=== PATIENT | female | born 1945 | race Caucasian/White ===

== ENCOUNTER → 2018-01-21 01:28 | Outpatient (CLI) | payer MEDICARE, SELFPAY ==
--- NOTE | 2018-01-21 15:50 | DI.REPORT_ITS ---
SYMPTOMS/DIAGNOSIS: S/P LUMBAR DECOMPRESSION WITH NEW SYMPTOMS, BACK AND RIGHT LEG PAIN, NUMBNESS TO KNEE MRI OF THE LUMBAR SPINE: Routine noncontrast examination was performed. Comparison MRI is 03/22/17. Since the prior examination, the patient has undergone posterior spinal fusion with posterior rods and pedicle screws from L4 through S1. The orthopedic hardware does cause artifact at these levels. The conus medullaris has a normal appearance and location. At L5-S1, there is grade 1 spondylolisthesis. There is disc desiccation. No significant central spinal canal or neural foraminal stenosis is seen. At L4-L5, there is disc desiccation. There does not appear to be any significant central spinal canal stenosis. The neural foraminal evaluation is compromised. There does appear to be at least mild bilateral neural foraminal narrowing. At L3-L4, there does appear to be a diffuse disc bulge. There are degenerative changes of the facets. The findings do appear to cause moderate central spinal canal stenosis. Neural foraminal evaluation is severely limited. There does appear to be moderate to severe right neural foraminal stenosis and mild left neural foraminal stenosis. At L2-L3, there is disc desiccation and a mild diffuse disc bulge. No focal disc herniation or central spinal canal stenosis is seen. There is mild to moderate bilateral neural foraminal stenosis present. At L1-L2, there is disc desiccation, endplate degenerative changes and osteophytes. No focal disc herniation or significant central spinal canal stenosis is seen. There is moderate narrowing of the left neural foramen. No significant right neural foraminal stenosis is seen. At T12-L1, there is no focal disc herniation, central spinal canal or neural foraminal stenosis. IMPRESSION: 1. Since the prior examination from March 2017, the patient has undergone a lumbar decompression with posterior tunde and screws extending from L4 through S1. This does compromise evaluation of the lower lumbar spine. 2. Degenerative changes throughout the lumbar spine causing multilevel central spinal canal and neural foraminal stenosis as described above. 3. Grade 1 spondylolisthesis of L5 on S1.
== END ==
PROVIDERS: PCP Nurse Practitioner Family; Visit Provider Nurse Practitioner
DX: M54.5 Low back pain (principal); M79.661 Pain in right lower leg; R20.0 Anesthesia of skin; M51.37 Other intervertebral disc degeneration, lumbosacral region; M43.17 Spondylolisthesis, lumbosacral region; Z98.890 Other specified postprocedural states
CPT/HCPCS: 72148

== ENCOUNTER 2018-03-25 13:37 | Outpatient (REF) | payer MEDICARE, SELFPAY ==
[2018-03-25 15:16] LABS: COMMENT (LAB VIEW ONLY) 25.52 mg/dL; Microalb ug/mg Crea 21.2 ug/mg Cr
[2018-03-25 18:31] LABS: ALT 40 U/L (12-78); AST 25 U/L (15-37); Albumin 4.3 g/dL (3.4-5.0); Alkaline Phosphatase 118 U/L (46-116); Anion Gap 6.2 mmol/L (3-11); BUN 14 mg/dL (7-18); Bilirubin, Total 0.4 mg/dL (0.2-1.0); CO2 30.8 mmol/L (21.0-32.0); CREATININE 1.05 mg/dL (0.55-1.02); Calcium 8.9 mg/dL (8.5-10.1); Chloride 95 mmol/L (98-107); Cholesterol 131 mg/dL (50-200); Estimated GFR 51.66 (mL/min/1.73m2); Glucose 95 mg/dL (70-100); HDL Cholesterol 54 mg/dL (40-60); LDL CHOLESTEROL 66 mg/dL (<100); Potassium 4.9 mmol/L (3.5-5.1); Sodium 132 mmol/L (136-145); Total Protein 7.6 g/dL (6.4-8.2); Triglyceride 104 mg/dL (30-150)
== END 2018-03-25 13:57 ==
LOC: NCHCN 13:37
PROVIDERS: PCP Nurse Practitioner Family; Visit Provider Nurse Practitioner Family
DX: I10 Essential (primary) hypertension (principal); E78.5 Hyperlipidemia, unspecified; R79.89 Other specified abnormal findings of blood chemistry
CPT/HCPCS: 80053; 80061; 83721; 82043; 82570; 83036

== ENCOUNTER 2018-06-26 14:06 | Outpatient (CLI) | payer MEDICARE, SELFPAY ==
--- NOTE | 2018-06-26 06:00 | DI.RAD_ITS ---
SYMPTOM/DIAGNOSIS: LUMBAR RADICULOPATHY, TRANSFORAMINAL EPIDURAL STEROID INJECTION C-ARM: Fluoroscopy Time: 34.1 seconds Fluoroscopy was provided for guidance with lumbar spine pain clinic injection. Please see procedure note for details.
[2018-06-26 15:01] VITALS: BP 125/74; PULSE 70; RESP 18; TEMP 37.7; O2SAT 96
[2018-06-26] MEDS: Omnipaque 240 MG/ML 50 ML BTL IJ (15:49)
[2018-06-26] MEDS: methylPREDNISolone ACETATE 40 MG/ML VIAL IJ (15:49)
[2018-06-26 15:50] VITALS: BP 134/63; PULSE 65; RESP 16; O2SAT 99
[2018-06-26] MEDS: Bupivacaine 0.5% Pres-Free 30 ML VIAL IJ (15:50)
--- NOTE | 2018-06-26 15:54 | PDOC.PAIN_ITS ---
Pain Clinic Procedure Note Current Active Problems Problem Status Onset Adjacent segment disease with spinal stenosis Acute LUMBAR / SACRAL TRANSFORAMINAL INJECTION CIARA CHRISTIANSON has been referred to the [facility] for a transforaminal nerve root block and steroid injection. COMMENTS: The patient has Right thigh and hip pain. Right L3 foraminal stenosis. Patient was interviewed and the medical record reviewed. There were no medical, pharmacologic, radiographic or other structural contraindications to attempting fluoroscopically guided transforaminal nerve root block and epidural steroid injection. Risks and expected side effects as well as potential benefit of the procedure were reviewed and voiced concerns addressed. The printed consent form was signed and witnessed. Standard time-out procedure was performed. Patient was placed in the prone position on the fluoroscopy table and automated blood pressure cuff and pulse oximeter applied. Fluoroscopy was utilized to identify the {right} neural foramen between L3and 4 . A skin grace was made for the needle insertion site. A Chlorhexadine prep was carried out, and sterile drapes were applied. Local anesthesia was achieved in the skin and subcutaneous tissues. A 22 gauge curved tip spinal needle was then inserted, advanced with fluoroscopic guidance into the neural foramen, confirmed on the lateral view. After negative aspiration, 2 ml of Omnipaque 240 was injected confirming position in A/P and lateral views. This showed a good spread of dye transforaminally into the epidural space. There was no vascular update with contrast injection under continuous fluoroscopy and digital substraction. 60 mg of Depo-Medrol was injected, followed by 0.5 ml of 1% Xylocaine flush for the nerve root block, as well. There was no unusual discomfort expressed.The needle was withdrawn. The patient tolerated the procedure well. A Band-Aid was applied. Vital signs were stable throughout the procedure and were as recorded in nursing records. If given, dosages of intravenous drugs for anxiolysis and analgesia were documented in nursing records. Follow up plans and appointments were discussed. Post procedure instruction was given as documented in nursing records and patient was discharged in the care of an identified regional truck driver. COMMENTS: Patient will f/u prn. CC: Elicai Pacheco
== END 2018-06-26 14:26 ==
PROVIDERS: PCP Nurse Practitioner Family; Visit Provider Anesthesiology Pain Medicine
DX: M51.16 Intervertebral disc disorders with radiculopathy, lumbar region (principal)
CPT/HCPCS: 64483; 72100; J1030; Q9967

== ENCOUNTER 2018-07-15 13:07 | Outpatient (REF) | payer MEDICARE, SELFPAY ==
[2018-07-15 19:46] LABS: ALT 32 U/L (12-78); AST 21 U/L (15-37); Alkaline Phosphatase 86 U/L (46-116); Anion Gap 7.2 mmol/L (3-11); BUN 28 mg/dL (7-18); Bilirubin, Total 0.4 mg/dL (0.2-1.0); CO2 31.8 mmol/L (21.0-32.0); CREATININE 1.48 mg/dL (0.55-1.02); Chloride 92 mmol/L (98-107); Estimated GFR 34.77 (mL/min/1.73m2); Glucose 78 mg/dL (70-100); Potassium 4.7 mmol/L (3.5-5.1); Sodium 131 mmol/L (136-145); Total Protein 7.3 g/dL (6.4-8.2)
== END 2018-07-15 13:27 ==
LOC: NCHCN 13:07
PROVIDERS: PCP Nurse Practitioner Family; Visit Provider Nurse Practitioner Family
DX: E78.5 Hyperlipidemia, unspecified (principal); F32.9 Major depressive disorder, single episode, unspecified; Z86.39 Personal history of other endocrine, nutritional and metabolic disease
CPT/HCPCS: 80053

== ENCOUNTER 2018-10-14 11:28 | Outpatient (REF) | payer MEDICARE, SELFPAY ==
[2018-10-14 19:56] LABS: Absolute Basophil Count 0.01 k/cumm (0.0-0.2); Absolute Eosinophil Count 0.09 k/cumm (0.0-0.7); Absolute Lymphocyte Count 0.99 k/cumm (1.2-3.4); Absolute Monocyte Count 0.65 k/cumm (0.11-0.7); Basophils % 0.2; Eosinophils % 1.9; HCT 32.6 % (36.0-46.0); HGB 11.3 g/dL (12.0-15.5); Lymphocytes % 20.9; Mean Corp. HGB Concentration 34.7 g/dL (32.0-36.0); Mean Corpuscular Hemoglobin 31.8 pg (27.0-33.0); Mean Corpuscular Volume 91.8 fL (80-95); Mean Platelet Volume 9.2 fL (8.0-11.0); Monocytes % 13.7; Neutrophils % 63.3; Platelet Count 224 x1000/uL (130-400); RBC 3.55 m/cumm (4.00-5.20); RBC Distribution Width 11.6 % (11.7-14.6); White Blood Cell Count 4.74 k/cumm (4.4-10.8)
[2018-10-14 20:32] LABS: ALT 33 U/L (12-78); AST 25 U/L (15-37); Albumin 4.1 g/dL (3.4-5.0); Alkaline Phosphatase 91 U/L (46-116); Anion Gap 9.5 mmol/L (3-11); BUN 20 mg/dL (7-18); Bilirubin, Total 0.8 mg/dL (0.2-1.0); CO2 28.5 mmol/L (21.0-32.0); CREATININE 1.33 mg/dL (0.55-1.02); Calcium 9.3 mg/dL (8.5-10.1); Chloride 88 mmol/L (98-107); Cholesterol 133 mg/dL (50-200); Estimated GFR 39.33 (mL/min/1.73m2); Glucose 98 mg/dL (70-100); HDL Cholesterol 47 mg/dL (40-60); LDL CHOLESTEROL 62 mg/dL (<100); Potassium 4.3 mmol/L (3.5-5.1); Sodium 126 mmol/L (136-145); TSH (W/Ref FT4) 2.54 uIU/mL (0.358-3.74); Total Protein 7.4 g/dL (6.4-8.2); Triglyceride 157 mg/dL (30-150)
== END 2018-10-14 11:48 ==
LOC: NCHCN 11:28
PROVIDERS: PCP Nurse Practitioner Family; Visit Provider Nurse Practitioner Family
DX: I10 Essential (primary) hypertension (principal); R06.09 Other forms of dyspnea; Z86.39 Personal history of other endocrine, nutritional and metabolic disease
CPT/HCPCS: 80053; 80061; 83721; 84443; 85025

== ENCOUNTER 2018-10-18 01:41 | Outpatient (CLI) | payer MEDICARE, SELFPAY ==
--- NOTE | 2018-10-18 10:00 | DI.US_ITS ---
SYMPTOM/DIAGNOSIS: STAGE III CHRONIC KIDNEY DISEASE, N18.3 RENAL ULTRASOUND: The kidneys are normal in size and shape. There is no evidence of a renal mass or fluid collection involving the pararenal space. The corticomedullary definition appears intact. Ther is no evidence of hydronephrosis. The examination of the bladder fails to show any intraluminal or wall abnormality of the bladder. Pre and post void urinary bladder volume measurements are 105 cc's and 14 cc's respectively. Ureteral jets were visualized bilaterally. CONCLUSION: Negative renal ultrasound.
== END 2018-10-18 02:01 ==
PROVIDERS: PCP Nurse Practitioner Family; Visit Provider Nurse Practitioner Family
DX: N18.3 Chronic kidney disease, stage 3 (moderate) (principal)
CPT/HCPCS: 76770

== ENCOUNTER 2018-10-21 01:10 | Outpatient (CLI) | payer MEDICARE, SELFPAY ==
--- NOTE | 2018-10-21 09:40 | DI.MAMMO_ITS ---
SYMPTOM/DIAGNOSIS: SCREENING, FAMILY H/O BREAST CA, Z80.3 MAMMOGRAMS: Mammograms were interpreted according to the usual protocol including computer analysis with CAD system, tomosynthesis and C view imaging. The breasts are of moderate density with fairly symmetrical distribution of fibroglandular tissue. No dominant mass or clumped microcalcification is identified in either breast. The current examination is compared with previous examinations including 03/2016 and there has been no gross interval change in appearance in comparison with the previous studies. CONCLUSION: No specific evidence of malignancy at this time. Routine screening examinations are suggested at yearly intervals due to the family history of breast carcinoma. Category 1, breast density, Category B. MQSA ASSESSMENT OF FINDINGS: Negative. Category 1. Patient will receive a letter notifying them of these results. BI-RADS category B. There are scattered areas of fibroglandular density.
== END 2018-10-21 01:30 ==
PROVIDERS: PCP Nurse Practitioner Family; Visit Provider Nurse Practitioner Family
DX: Z12.31 Encounter for screening mammogram for malignant neoplasm of breast (principal); Z80.3 Family history of malignant neoplasm of breast
CPT/HCPCS: 77063; 77067

== ENCOUNTER 2018-10-28 01:30 | Outpatient (CLI) | payer MEDICARE, SELFPAY ==
--- NOTE | 2018-10-28 | PFT_ITS ---
PULMONARY FUNCTION TEST REPORT Patient - Negar Godinez 49 DATE OF SERVICE October 28, 2018 REQUESTING PROVIDER Byron Gibson NP INTERPRETATION OF STUDY Spirometry shows no evidence of obstructive airways disease. There is some, but not significant bronchodilator response. LUNG VOLUMES - Lung volumes shows no evidence of restriction. DIFFUSION CAPACITY- Normal. AIRWAY RESISTANCE - Normal. IMPRESSION Overall normal pulmonary function study. There is some improvement with bronchodilator administration, however, this may be related to a better patient effort and overall the amount of response is not significant. Clinical correlation therefore is recommended. If underlying diagnosis of asthma is suspected, proceeding with Methacholine challenge testing may prove to be useful. Elisa Arteaga M.D. [employer]LEJANDRO[employer] 10/30/2018
[2018-10-28] MEDS: Inhaler, Assist Device 1 EACH MC (13:39)
[2018-10-28] MEDS: Albuterol HFA 18 GM 200 PUFF INH IH (13:40)
[2018-10-28 15:26] LABS: Anion Gap 8.4 mmol/L (3-11); BUN 15 mg/dL (7-18); CO2 28.6 mmol/L (21.0-32.0); CREATININE 0.96 mg/dL (0.55-1.02); Calcium 9.2 mg/dL (8.5-10.1); Chloride 97 mmol/L (98-107); Estimated GFR 57.29 (mL/min/1.73m2); Glucose 88 mg/dL (70-100); Potassium 4.3 mmol/L (3.5-5.1); Sodium 134 mmol/L (136-145)
== END 2018-10-28 01:50 ==
PROVIDERS: PCP Nurse Practitioner Family; Visit Provider Nurse Practitioner Family
DX: N18.3 Chronic kidney disease, stage 3 (moderate) (principal); R06.09 Other forms of dyspnea; Z77.22 Contact with and (suspected) exposure to environmental tobacco smoke (acute) (chronic)
CPT/HCPCS: 36415; 80048; 94060; 94150; 94726; 94729

== ENCOUNTER 2018-12-10 10:47 | Outpatient (CLI) | payer MEDICARE, SELFPAY ==
[2018-12-10 12:10] LABS: Anion Gap 9.9 mmol/L (3-11); BUN 11 mg/dL (7-18); CO2 28.1 mmol/L (21.0-32.0); CREATININE 1.03 mg/dL (0.55-1.02); Calcium 9.5 mg/dL (8.5-10.1); Chloride 102 mmol/L (98-107); Estimated GFR 52.82 (mL/min/1.73m2); Glucose 90 mg/dL (70-100); Potassium 4.9 mmol/L (3.5-5.1); Sodium 140 mmol/L (136-145)
== END 2018-12-10 11:07 ==
PROVIDERS: PCP Nurse Practitioner Family; Visit Provider Nurse Practitioner Family
DX: N18.3 Chronic kidney disease, stage 3 (moderate) (principal); Z86.39 Personal history of other endocrine, nutritional and metabolic disease
CPT/HCPCS: 36415; 80048

== ENCOUNTER 2019-01-16 13:39 | Outpatient (REF) | payer MEDICARE, SELFPAY ==
[2019-01-16 18:37] LABS: Anion Gap 9.4 mmol/L (3-11); BUN 11 mg/dL (7-18); CO2 27.6 mmol/L (21.0-32.0); CREATININE 0.89 mg/dL (0.55-1.02); Calcium 9.2 mg/dL (8.5-10.1); Chloride 95 mmol/L (98-107); Glucose 80 mg/dL (70-100); Potassium 4.1 mmol/L (3.5-5.1); Sodium 132 mmol/L (136-145)
== END 2019-01-16 13:59 ==
LOC: NCHCN 13:39
PROVIDERS: PCP Nurse Practitioner Family; Visit Provider Nurse Practitioner Family
DX: N18.3 Chronic kidney disease, stage 3 (moderate) (principal)
CPT/HCPCS: 80048

== ENCOUNTER 2019-03-13 15:27 | Outpatient (REF) | payer MEDICARE, SELFPAY ==
[2019-03-13 18:44] LABS: HCT 34.6 % (36.0-46.0); HGB 11.5 g/dL (12.0-15.5); Mean Corp. HGB Concentration 33.2 g/dL (32.0-36.0); Mean Corpuscular Hemoglobin 31.3 pg (27.0-33.0); Mean Platelet Volume 9.1 fL (8.0-11.0); Platelet Count 391 x1000/uL (130-400); RBC 3.68 m/cumm (4.00-5.20); RBC Distribution Width 13.6 % (11.7-14.6)
[2019-03-13 18:59] LABS: ALT 27 U/L (14-59); AST 22 U/L (15-37); Alkaline Phosphatase 132 U/L (46-116); Anion Gap 10.7 mmol/L (3-11); BUN 15 mg/dL (7-18); Bilirubin, Total 0.4 mg/dL (0.2-1.0); CO2 23.3 mmol/L (21.0-32.0); CREATININE 1.13 mg/dL (0.55-1.02); Calcium 9.2 mg/dL (8.5-10.1); Chloride 102 mmol/L (98-107); Estimated GFR 47.33 (mL/min/1.73m2); Glucose 108 mg/dL (70-100); Potassium 4.3 mmol/L (3.5-5.1); Sodium 136 mmol/L (136-145); Total Protein 7.5 g/dL (6.4-8.2)
== END 2019-03-13 15:47 ==
LOC: NCHCN 15:27
PROVIDERS: PCP Nurse Practitioner Family; Visit Provider Nurse Practitioner Family
DX: N18.3 Chronic kidney disease, stage 3 (moderate) (principal); L29.8 Other pruritus
CPT/HCPCS: 80053; 85027

== ENCOUNTER 2019-04-17 11:49 | Outpatient (REF) | payer MEDICARE, SELFPAY ==
[2019-04-17 19:00] LABS: Anion Gap 8.4 mmol/L (3-11); BUN 15 mg/dL (7-18); CO2 27.6 mmol/L (21.0-32.0); CREATININE 1.08 mg/dL (0.55-1.02); Calcium 8.8 mg/dL (8.5-10.1); Chloride 104 mmol/L (98-107); Estimated GFR 49.87 (mL/min/1.73m2); Glucose 81 mg/dL (70-100); Potassium 4.3 mmol/L (3.5-5.1); Sodium 140 mmol/L (136-145)
== END 2019-04-17 12:09 ==
LOC: NCHCN 11:49
PROVIDERS: PCP Nurse Practitioner Family; Visit Provider Nurse Practitioner Family
DX: N18.3 Chronic kidney disease, stage 3 (moderate) (principal)
CPT/HCPCS: 80048

== ENCOUNTER 2019-06-20 11:46 | Outpatient (REF) | payer MEDICARE, SELFPAY ==
[2019-06-20 19:30] LABS: Anion Gap 10.2 mmol/L (3-11); BUN 14 mg/dL (7-18); CO2 26.8 mmol/L (21.0-32.0); CREATININE 1.04 mg/dL (0.55-1.02); Calcium 9.3 mg/dL (8.5-10.1); Chloride 103 mmol/L (98-107); Estimated GFR 52.09 (mL/min/1.73m2); Glucose 81 mg/dL (74-106); Potassium 4.5 mmol/L (3.5-5.1); Sodium 140 mmol/L (136-145)
[2019-06-20 19:37] LABS: COMMENT (LAB VIEW ONLY) 9.85 mg/dL; PROTEIN < 6.0 mg/dL
[2019-06-20 19:41] LABS: COMMENT (LAB VIEW ONLY) < 13.00 mg/dL
== END 2019-06-20 12:06 ==
LOC: NCHCN 11:46
PROVIDERS: PCP Nurse Practitioner Family; Visit Provider Nurse Practitioner Family
DX: I10 Essential (primary) hypertension (principal); N18.3 Chronic kidney disease, stage 3 (moderate); R73.03 Prediabetes
CPT/HCPCS: 80048; 82043; 82565; 82570; 84156

== ENCOUNTER 2019-12-02 11:02 | Outpatient (CLI) | payer MEDICARE, SELFPAY ==
[2019-12-02 11:24] VITALS: BP 142/80; PULSE 70; RESP 17; TEMP 37.3; O2SAT 98
--- NOTE | 2019-12-02 11:35 | PDOC.PAIN_ITS ---
Pain Clinic Procedure Note Procedure Note Procedure Note: INTRA-ARTICULAR SI JOINT INJECTION CIARA CHRISTIANSON has been referred to the [facility] for intra- articular SI joint injection. pre-operative diagnosis: disorder of sacrum post-operative diagnosis: same as above COMMENTS: patient has multiple lumbar surgeries including instrumented fusion. She has left more than right sacroiliac mediated pain. however, she is having symptoms on bilateral side today. She is here for diagnostic and therapeutic left SI joint injection. Patient was interviewed and the medical record reviewed. There were no medical, pharmacologic, radiographic or other structural contraindications to attempting fluoroscopically guided intra-articular SI joint injection. Risks and expected side effects as well as potential benefit of the procedure were reviewed and voiced concerns addressed. The printed consent form was signed and witnessed. Standard time-out procedure was performed. Patient was placed in the prone position on the fluoroscopy table and automated blood pressure cuff and pulse oximeter applied. The skin entry point for approaching left SI joints was identified under the most advantageous fluoroscopic view and marked. Following thorough Chlorhexadine preparation of the skin and draping and 1% lidocaine infiltration of the skin entry point and subcutaneous tissues, a 22 gauge spinal needle was placed under fluoroscopic guidance into left SI joints was identified under the most advantageous fluoroscopic view and marked. Following thorough Chlorhexadine preparation of the skin and draping and 1% lidocaine infiltration of the skin entry point and subcutaneous tissues, a 22 gauge spinal needle was placed under fluoroscopic guidance into left SI joint. Intra-articular placement was confirmed by a clear arthrogram resulting from the injection of 0.25ml Omnipaque 240, 1ml 0.5% Bupivocaine, and 40mg Depomedrol (80mg/ml) were injected intra-articularily with an initial reproduction of a significant component of the usual pain. The same thing was repeated on the right SI joint as above. Bilateral SI joint injection was performed with total of 80mg/ml (40mg/ml per joint) mixed with 2cc of 0.5% Bupivocaine (1cc per joint). Total of ~1cc of Omnipaque 240 used. Vital signs were stable throughout the procedure and were as recorded in the docflowsheet by the nursing staff. Follow up plans and appointments were discussed with the patient. Post procedure instruction was given as documented in nursing documentation and having met discharge criteria, and was discharged from the [facility]. COMMENTS: discussed with patient that today's injection is unlikely to help improve the numbness of her big toe, residual numbness since her lumbar spine surgery with Dr Lou. I personally performed the entire procedure. Brinda Sheldon MD Pain Management CC: Byron Gibson
[2019-12-02 11:59] VITALS: BP 142/74; PULSE 71; RESP 19; O2SAT 100
--- NOTE | 2019-12-02 12:00 | DI.RAD_ITS ---
EXAM: XR PAIN CLINIC SACRIOILIAC 2V CLINICAL HISTORY: Sacroiliac Joint Dysfunction. TECHNIQUE: Fluoroscopy was provided for the referring physician for guidance with performing SI join t injection procedure. COMPARISON: No exams were available for comparison FINDINGS: Please see procedure note for details. Fluoro time: 26.7 sec, 8.42 mGy RADIATION DOSE DELIVERED:
[2019-12-02] MEDS: Bupivacaine 0.5% Pres-Free 10 ML VIAL IJ (12:22)
[2019-12-02] MEDS: methylPREDNISolone ACETATE 80 MG/ML VIAL (12:22)
[2019-12-02] MEDS: Omnipaque 240 MG/ML 50 ML BTL IJ (12:22)
== END 2019-12-02 11:22 ==
PROVIDERS: PCP Nurse Practitioner Family; Visit Provider Internal Medicine
DX: M53.3 Sacrococcygeal disorders, not elsewhere classified (principal)
CPT/HCPCS: 27096; 72200; J1040; Q9967

== ENCOUNTER 2020-01-07 21:37 | Outpatient (REF) | payer MEDICARE, SELFPAY ==
[2020-01-07 20:57] LABS: Anion Gap 8.5 mmol/L (3-11); BUN 14 mg/dL (7-18); CO2 28.5 mmol/L (21.0-32.0); CREATININE 1.13 mg/dL (0.55-1.02); Calcium 9.3 mg/dL (8.5-10.1); Chloride 104 mmol/L (98-107); Estimated GFR 47.33 (mL/min/1.73m2); Glucose 103 mg/dL (74-106); Potassium 4.4 mmol/L (3.5-5.1); Sodium 141 mmol/L (136-145)
== END 2020-01-07 21:57 ==
LOC: NCHCN 21:37
PROVIDERS: PCP Nurse Practitioner Family; Visit Provider Nurse Practitioner Family
DX: N18.3 Chronic kidney disease, stage 3 (moderate) (principal)
CPT/HCPCS: 80048

== ENCOUNTER 2020-01-23 14:38 | Outpatient (REF) | payer MEDICARE, SELFPAY ==
[2020-01-23 17:17] LABS: Anion Gap 6.8 mmol/L (3-11); BUN 17 mg/dL (7-18); CO2 29.2 mmol/L (21.0-32.0); CREATININE 1.12 mg/dL (0.55-1.02); Calcium 9.2 mg/dL (8.5-10.1); Chloride 102 mmol/L (98-107); Estimated GFR 47.69 (mL/min/1.73m2); Glucose 95 mg/dL (74-106); Potassium 4.7 mmol/L (3.5-5.1); Sodium 138 mmol/L (136-145)
== END 2020-01-23 14:58 ==
LOC: NCHCN 14:38
PROVIDERS: PCP Nurse Practitioner Family; Visit Provider Nurse Practitioner Family
DX: R59.0 Localized enlarged lymph nodes (principal); N18.3 Chronic kidney disease, stage 3 (moderate); Z86.39 Personal history of other endocrine, nutritional and metabolic disease
CPT/HCPCS: 80048

== ENCOUNTER 2020-02-05 00:52 | Outpatient (CLI) | payer MEDICARE, SELFPAY ==
--- NOTE | 2020-02-05 | DI.RAD_ITS ---
EXAM: XR SHOULDER RT COMPLETE 2+V CLINICAL HISTORY: AXILLARY LYMPHADENOPATHY,R59.0,RT SHOULDER PAIN,M25.511. TECHNIQUE: 2D digital imaging was performed. COMPARISON: No exams were available for comparison FINDINGS: There is spurring at the AC joint and glenoid as well as greater and lesser tuberosities. The asim l head is normally positioned. No tendon or joint space calcifications are seen. IMPRESSION: Moderate degenerative changes the right shoulder. DATA REPOSITORY: RADIATION DOSE DELIVERED:
--- NOTE | 2020-02-05 | DI.US_ITS ---
EXAM: US AXILLA RT CLINICAL HISTORY: AXILLARY LYMPHADENOPATHY,R59.0,UNSPEC. SWELLING/LUMP AXILLARY TAIL,N63.31 TECHNIQUE: Ultrasound right axilla performed using standard protocol. The area of the palpable abno rmality was scanned. COMPARISON: MG Screening Bilat Mammo from 04/08/2015 MG Screening Bilat Mammo from 04/10/2016 MG MG mammo screening from 10/21/2018 MG MG mammo screening from 10/21/2018 FINDINGS: No solid or cystic masses, hypoechoic foci, areas of abnormal shadowing, or areas of skin thickening. Two lymph nodes with fatty david are noted, 1 measuring 2 cm in length and the other measuring 1.9 c m in length. They appear circumscribed. No suspicious features are seen. IMPRESSION: There are 2 lymph nodes in the right axilla corresponding to the palpable abnormality. There are no suspicious features however malignancy cannot be entirely excluded on the basis of this exam.. DATA REPOSITORY:
== END 2020-02-05 01:12 ==
PROVIDERS: PCP Nurse Practitioner Family; Visit Provider Nurse Practitioner Family
DX: M19.011 Primary osteoarthritis, right shoulder (principal); N63.31 Unspecified lump in axillary tail of the right breast; R59.0 Localized enlarged lymph nodes
CPT/HCPCS: 76642; 73030

== ENCOUNTER → 2020-02-10 10:12 | Outpatient (BNVA) | payer MEDICARE, SELFPAY | PROVIDERS: PCP Nurse Practitioner Family; Referring Provider Nurse Practitioner Family; Visit Provider Student in an Organized Health Care Education/Training Program | DX: S46.011A Strain of muscle(s) and tendon(s) of the rotator cuff of right shoulder, initial encounter (principal); X50.9XXA Other and unspecified overexertion or strenuous movements or postures, initial encounter; M75.51 Bursitis of right shoulder; M19.011 Primary osteoarthritis, right shoulder; M75.21 Bicipital tendinitis, right shoulder; I12.9 Hypertensive chronic kidney disease with stage 1 through stage 4 chronic kidney disease, or unspecified chronic kidney disease; N18.3 Chronic kidney disease, stage 3 (moderate) | CPT/HCPCS: 99204 ==

== ENCOUNTER 2020-02-24 03:42 | Outpatient (CLI) | payer MEDICARE, SELFPAY ==
--- NOTE | 2020-02-24 07:30 | DI.MRI_ITS ---
EXAM: MR UPPER JOINT RT WO CLINICAL HISTORY: Rotator cuff weakness,traumatic tear rt rotator cuff,s46.011a. TECHNIQUE: Multiplanar multisequence MRI was performed. COMPARISON: None. FINDINGS: Bones: There is no fracture or contusion pattern. Moderate hypertrophic changes of the AC joint. Spurring a nd a few small subchondral cysts at the greater and lesser tuberosities. Small joint effusion. Ther e is fluid in this sub coracoid bursa. Rotator Cuff: There is thickening and irregularity of the supraspinatus and infraspinatus tendons without evidence of a focal tear.. The subscapularis and teres minor are normal. Labrum and biceps anchor: The biceps tendon is located. The labrum shows degenerative changes.. IMPRESSION: Degenerative changes . No full-thickness rotator cuff tear. Joint effusion. DATA REPOSITORY:
== END 2020-02-24 04:02 ==
PROVIDERS: PCP Nurse Practitioner Family; Visit Provider Student in an Organized Health Care Education/Training Program
DX: M25.411 Effusion, right shoulder (principal); M19.011 Primary osteoarthritis, right shoulder
CPT/HCPCS: 73221

== ENCOUNTER → 2020-03-09 10:01 | Outpatient (BNVA) | payer MEDICARE, SELFPAY | PROVIDERS: PCP Nurse Practitioner Family; Referring Provider Nurse Practitioner Family; Visit Provider Student in an Organized Health Care Education/Training Program | DX: M75.21 Bicipital tendinitis, right shoulder (principal); M19.011 Primary osteoarthritis, right shoulder; M75.51 Bursitis of right shoulder; S46.011D Strain of muscle(s) and tendon(s) of the rotator cuff of right shoulder, subsequent encounter; X50.9XXD Other and unspecified overexertion or strenuous movements or postures, subsequent encounter; I12.9 Hypertensive chronic kidney disease with stage 1 through stage 4 chronic kidney disease, or unspecified chronic kidney disease; N18.3 Chronic kidney disease, stage 3 (moderate) | CPT/HCPCS: 20610; 99214; J1030 ==

== ENCOUNTER 2020-03-19 11:32 | Outpatient (REF) | payer MEDICARE, SELFPAY ==
[2020-03-19 19:26] LABS: Anion Gap 7.3 mmol/L (3-11); BUN 18 mg/dL (7-18); CO2 28.7 mmol/L (21.0-32.0); CREATININE 1.02 mg/dL (0.55-1.02); Calcium 9.2 mg/dL (8.5-10.1); Chloride 103 mmol/L (98-107); Estimated GFR 53.12 (mL/min/1.73m2); Glucose 86 mg/dL (74-106); Potassium 4.5 mmol/L (3.5-5.1); Sodium 139 mmol/L (136-145)
[2020-03-19 20:25] LABS: Hemoglobin A1C 5.9 % (<5.7)
== END 2020-03-19 11:52 ==
LOC: NCHCN 11:32
PROVIDERS: PCP Nurse Practitioner Family; Visit Provider Nurse Practitioner Family
DX: R73.03 Prediabetes (principal)
CPT/HCPCS: 80048; 83036

== ENCOUNTER 2020-03-31 15:09 | Outpatient (REF) | payer MEDICARE, SELFPAY ==
[2020-03-31 21:05] LABS: Anion Gap 7.2 mmol/L (3-11); BUN 16 mg/dL (7-18); CO2 29.8 mmol/L (21.0-32.0); CREATININE 1.19 mg/dL (0.55-1.02); Calcium 9.1 mg/dL (8.5-10.1); Chloride 103 mmol/L (98-107); Estimated GFR 44.46 (mL/min/1.73m2); Glucose 71 mg/dL (74-106); Potassium 4.4 mmol/L (3.5-5.1); Sodium 140 mmol/L (136-145)
== END 2020-03-31 15:29 ==
LOC: NCHCN 15:09
PROVIDERS: PCP Nurse Practitioner Family; Visit Provider Nurse Practitioner Family
DX: R60.0 Localized edema (principal)
CPT/HCPCS: 80048

== ENCOUNTER → 2020-04-06 11:29 | Outpatient (BNVA) | payer MEDICARE, SELFPAY | PROVIDERS: PCP Nurse Practitioner Family; Referring Provider Nurse Practitioner Family; Visit Provider Surgery | DX: R59.0 Localized enlarged lymph nodes (principal); I12.9 Hypertensive chronic kidney disease with stage 1 through stage 4 chronic kidney disease, or unspecified chronic kidney disease; N18.30 Chronic kidney disease, stage 3 unspecified | CPT/HCPCS: 99202; 99214 ==

== ENCOUNTER 2020-04-29 01:20 | Outpatient (CLI) | payer MEDICARE, SELFPAY ==
--- NOTE | 2020-04-29 07:07 | OPPNE_ITS ---
Date of Procedure: April 29, 2020 Assessment & Plan (1) Encounter for procedure: Intake Intake Visit Reasons: Fine needle aspiration Allergies Allergy/AdvReac Type Severity Reaction Status Date / Time tramadol Allergy Swelling/Ed Verified 04/07/20 11:21 domenic HPI Fine Needle Aspiration/Biopsy Mrs Lowe is a pleasant 75-year-old female with shoulder pain as well as a palpable mass in her right axilla. Ultrasound showed 2 lymph nodes that were enlarged. One was 2 cm and one was 1.9 cm. She has had no changes in the skin. She has had no palpable masses in her breast, no nipple discharge, no other abnormalities. She denies trauma to the area, she denies previous or current infections on her arm chest or back. Differential diagnosis includes infectious source, occult malignancy, or inflammatory reaction. The lymph nodes are hard to palpate I will schedule the patient in the radiology department with the pharmacy technician as well as the pathologist on hand. We will do a fine-needle aspiration and see if we cannot get a diagnosis. The procedure was explained to the patient in layman's terms. Questions were entertained and answered and she wished to proceed. Informed consent given?: Yes Consent signed: Yes Radiological findings: There are 2 lymph nodes in the right axilla corresponding to the palpable abnormality. There are no suspicious features however malignancy cannot be entirely excluded on the basis of this exam. Anesthesia: local Needle size: 22 G (3.5 inches long) Aspiration content: other (lymphatic tissue) Tissue prep: slides and cell block Complications: none Details: Pre-op Dx: Right axillary lymphadenopathy Post-op Dx: same Surgeon: Annamarie Bill MD Anesthesia: 1% Lidocaine Blood loss: minimal Specimen: lymphadic tissue for slides and cytometry Complications: no immediate complications Procedure: After informed consent was obtained the patient was placed in a supine position. Us of the right axilla was done and the larger lymph node was identified. The skin was cleaned with alcohol and infiltrated with the above local anesthetic. The skin was cleaned again with alcohol and Fine needle aspiration was done under US guidence with a 22 gauge, 3.5 inch needle. Several passes were done. The material was then placed on slides and into a container for flow cytometry by the radiologist. This procedure was repeated 5 times until the pathologist felt he had enough cells for a diagnoses. The skin was cleaned and dried and a bandaid was applied. The patient tolerated the procedure well and there were no immediate complications. Needle counts were correct at the end of the case. cc: JARRETT SIBLEY NP Dictated by: ANNAMARIE BILL MD Dictated: 04/29/20Time: 1352 <Electronically signed by Caterina Bill M.D.> Date: 06/29/19 1405 Date: Date: Transcribed Date: 04/29/20 Transcribed Time: 1352By: MANOHAR cc: jarrett sibley NP
--- NOTE | 2020-04-29 07:15 | DI.US_ITS ---
EXAM: R axillary lymphadenopathy,R59.0, ULTRASOUND GUIDED BX OF LYMPH NODE COMPARISON: No exams were available for comparison TECHNIQUE: Ultrasound performed using standard protocol. FINDINGS: Sonography was provided for Dr. Mata during the performance of a right axillary FNA. Please refe r to the procedure report for complete details. DATA REPOSITORY:
--- NOTE | 2020-04-29 13:30 | PAPNONF_PTH ---
PATIENT: Negar Lowe LOC: [facility] U#:[id number] AGE/SX: 75/F ROOM: RE04/29/[address]: Caterina Mata MD : 1945 BED: DIS: 04/29/2020 SPEC #: [id number] RECD: 04/29/20 17:29 STATUS: BIANCA REQ #: [id number] ALVAREZ: 04/29/20 13:[address]: Caterina Mata DEPT: [facility] Cytology RECD BY: Nereida Melgar ENTERED: 04/29/20 17:30 SP TYPE: NEHEMIAH BOWDEN DR: Byron Gibson Tissues: 1 - BODY FLUID CYTO-FINE NEEDLE ASPIRATE-[facility] 2 - FLOW CYTOMETRY NODE/TISSUE Procedures: FLOW CYTOMETRY LYMPHOMA PNL BODY FLUID CYTO-FINE NEEDLE ASPIRATE-[facility] Comments: [id number] (FLOW CYTOMETRY - [id number]) (5 SLIDES & 4 SLIDES IN 95% ETHANOL) (HOLD FOR POSSIBLE CYTOGENETICS)
== END 2020-04-29 01:40 ==
PROVIDERS: PCP Nurse Practitioner Family; Visit Provider Surgery
DX: R59.0 Localized enlarged lymph nodes (principal)
CPT/HCPCS: 10005; 76942; 88104; 88184; 88185

== ENCOUNTER 2020-05-25 01:40 | Outpatient (CLI) | payer MEDICARE, SELFPAY ==
--- NOTE | 2020-05-25 | DI.US_ITS ---
EXAM: US HERNIA CLINICAL HISTORY: RLQ ABD PAIN, ? HERNIA TECHNIQUE: Ultrasound performed using standard protocol. COMPARISON: US US NEEDLE LOCAL BREAST WO RAD from 04/29/2020 FINDINGS: Ultrasound examination abdominal wall was performed in the right lower quadrant to evaluate an area q uestionable wall abnormality with suspected hernia. No hernia identified on this examination. If there is a high clinical suspicion of abdominal wall hernia,. Additional evaluation with CT may b e considered. IMPRESSION: DATA REPOSITORY:
--- NOTE | 2020-05-25 11:59 | PDOC.ANES ---
Date of service: 05/25/20 Time of Service: 11:59 Anesthesia Note Report Anesthesia Note: Anesthesia chart review and consult requested by orthopedics before a planned right shoulder arthroscopy. Stated reason for referral was HTN, HLD, CHD, lumbar radiculopathy, and possible RA. Reviewed both [facility] and [facility] documentation. Patient has a significant history to exertional dyspnea for which she has been evaluated with PFTs in 2008 through the [facility] clinic, minor bronchodilator response, no significant evidence fo asthma or other etiology. The patient has reported atypical chest pain in the past, once status post epidural steroid injection, the patient was evaluated with ECHO and stress test at the time and showed no sign of ischemia. Patient's blood pressures appear to remain high, with elevated systolics and diastolics, could most likely use some adjustment by her PCP. [facility] anesthesia documentation did not show any significant concerns or issues during her 2019 anesthetic. I believe she should be fine to proceed barring further data.
== END 2020-05-25 02:00 ==
PROVIDERS: PCP Nurse Practitioner Family; Visit Provider Nurse Practitioner Family
DX: R10.31 Right lower quadrant pain (principal); M75.21 Bicipital tendinitis, right shoulder; M19.011 Primary osteoarthritis, right shoulder; M75.51 Bursitis of right shoulder; S46.011D Strain of muscle(s) and tendon(s) of the rotator cuff of right shoulder, subsequent encounter; X58.XXXD Exposure to other specified factors, subsequent encounter
CPT/HCPCS: 76857; 99214

== ENCOUNTER → 2020-06-22 10:17 | Outpatient (BNVA) | payer MEDICARE, SELFPAY | PROVIDERS: PCP Nurse Practitioner Family; Referring Provider Nurse Practitioner Family; Visit Provider Surgery | DX: R10.31 Right lower quadrant pain (principal); Z01.818 Encounter for other preprocedural examination; K21.9 Gastro-esophageal reflux disease without esophagitis; R19.7 Diarrhea, unspecified | CPT/HCPCS: 99213; 99214 ==

== ENCOUNTER 2020-06-24 00:41 | Outpatient (CLI) | payer MEDICARE, SELFPAY ==
--- NOTE | 2020-06-24 07:15 | DI.CT_ITS ---
EXAM: CT ABDOMEN PELVIS W CLINICAL HISTORY: RLQ pain, ? hernia. Neg US,R10.31. TECHNIQUE: Imaging Protocol: Axial computed tomography images with coronal and sagittal reformatted images were created and reviewed CONTRAST MATERIAL: Intravenous: Omnipaque 100cc Oral: None COMPARISON: Recent ultrasound reviewed FINDINGS: VISUALIZED LUNG BASES: No nodules nor pleural effusions evident. Prominent retrocardiac hiatal herni a is noted. ABDOMEN: There is no ascites. LIVER: There are no obvious focal hepatic lesions evident. Mild steatosis. GALLBLADDER/BILIARY: The gallbladder surgically absent. CBD is not dilated. PANCREAS: Pancreas appears atrophic SPLEEN: Spleen is not enlarged. No obvious intrasplenic lesions. Calcified granulomas noted in the spleen. The splenic and portal veins are patent. ADRENALS: Mild thickening of the genu of the right adrenal gland is noted. Left adrenal gland is unr emarkable. KIDNEYS:No cysts evident. No solid renal masses. No calculi nor hydronephrosis.. ABDOMINAL AORTA: Abdominal aorta is not enlarged and there is no bwusrjdkpduobse-btka-kiozuw adenopat hy. ABDOMINAL WALL/GI: No evidence of significant anterior abdominal wall hernia. No obvious inguinal he rnia. There is abnormal appearance of the colon. Although is somewhat difficult to evaluate without oral c ontrast, the appearance of the transverse and descending colons are suspicious for colitis. There is also a diverticulum off the anterior aspect of the mid transverse colon noted but without evidence o f obvious diverticulitis at this level. There is extensive diverticulosis of the sigmoid noted. No obvious diverticulitis at this time.. No evidence of appendicitis. PELVIS: GI: No evidence of appendicitis.As above. LYMPH NODES: There is no intrapelvic nor inguinal adenopathy. REPRODUCTIVE: There is uterine fibroid on the right side measuring approximately 2.6 x 2.6 centimetre s. No ovarian masses evident. No fluid in the cul-de-sac. URINARY BLADDER: No calculi nor obvious masses evident OSSEOUS: Multilevel fusion hardware in the lumbar spine. No lytic osseous lesions seen. IMPRESSION: 1. The appearance of the colon is abnormal, suspicious for diffuse colitis pattern involving at least the ascending and transverse colons. There is also a solitary diverticulum in the transverse colon noted. There is also extensive sigmoid diverticulosis noted. 2. No evidence of obvious anterior abdominal wall hernia. I note the recent ultrasound examination w as performed to look for hernia. 3. There is no ascites adenopathy evident. 4. Multilevel lumbar fusion hardware noted. RADIATION DOSE DELIVERED: 999.99mGy.cm Total DLP DATA REPOSITORY: All CT scans at this facility are submitted to the National Radiology Data Registry (NRDR) Dose Index Registry (DIR) with the [employer] ([employer]). RADIATION OPTIMIZATION: All CT scans at this facility use at least one of these dose optimization te chniques: automated exposure control; mA and/or kV adjustment per patient size (includes targeted exa ms where dose is matched to clinical indication); or iterative reconstruction.
[2020-06-24] MEDS: Omnipaque 350 MG/ML 50 ML BTL PO (07:55)
[2020-06-24] MEDS: Breeza Beverage 473 ML BTL PO ×2 (07:56→07:57)
[2020-06-24 08:03] LABS: CREATININE 1.13 mg/dL (0.55-1.02)
[2020-06-24] MEDS: Normal Saline - Diluent 50 ML VIAL IV (09:13)
[2020-06-24] MEDS: Omnipaque 350 MG/ML 100 ML BTL IJ (09:13)
== END 2020-06-24 01:01 ==
PROVIDERS: PCP Nurse Practitioner Family; Visit Provider Surgery
DX: R10.31 Right lower quadrant pain (principal); K57.30 Diverticulosis of large intestine without perforation or abscess without bleeding; Z01.818 Encounter for other preprocedural examination
CPT/HCPCS: 74177; 82565; J3490; Q9967

== ENCOUNTER 2020-06-29 01:53 | Outpatient (CLI) | payer MEDICARE, SELFPAY ==
[2020-06-30 16:34] LABS: COVID-19 RT-PCR UVMMC Result Negative (Negative)
== END 2020-06-29 02:13 ==
PROVIDERS: PCP Nurse Practitioner Family; Visit Provider Student in an Organized Health Care Education/Training Program
DX: Z11.52 Encounter for screening for COVID-19 (principal); Z01.818 Encounter for other preprocedural examination
CPT/HCPCS: U0003

== ENCOUNTER 2020-07-02 08:39 | Day surgery (SDC) | payer MEDICARE, SELFPAY ==
[2020-07-02] VITALS (8 sets, daily range): BP systolic 107–148; BP diastolic 51–75; PULSE 61–68; RESP 16–20; TEMP 36.1–36.6; O2SAT 93–100
[2020-07-02] MEDS: Lactated Ringers 1,000 ML 100 ML IV (09:30)
[2020-07-02] MEDS: ceFAZolin 2 GM/50 ML BAG IVPB (12:14)
[2020-07-02] MEDS: EPINEPHrine 30 MG/30 ML VIAL (12:59)
--- NOTE | 2020-07-02 14:36 | PDOC.DSDIS_ITS ---
Discharge Plan Disposition Patient Disposition: HOME Condition: Stable Discharge Details Attending Provider: Flaquito Juarez Primary Care Provider: Byron Gibson Home Meds and New Rx's Prescriptions: New aspirin 81 mg tablet,delayed release (DR/EC) 81 mg PO DAILY 14 Days Qty: 14 RF: 0 naproxen 250 mg tablet 250 - 500 mg PO BID PRN (Reason: Moderate pain or swelling) Qty: 60 RF: 0 oxycodone 5 mg tablet 5 - 10 mg PO Q4H PRN (Reason: moderate to severe pain) Qty: 12 RF: 0 Continued gabapentin 300 mg capsule 300 mg PO TID 30 Days Qty: 90 RF: 11 furosemide 20 mg tablet 10 mg PO DAILY RF: 0 omeprazole 20 mg capsule,delayed release(DR/EC) 40 mg PO DAILY RF: 0 simvastatin 40 MG tablet 40 mg PO DAILY RF: 0 cholecalciferol (vitamin D3) 2,000 UNIT tablet 2,000 unit PO DAILY RF: 0 Azopt 1 % Drops,Suspension 1 drp OPHTHALMIC (EYE) BID RF: 0 albuterol sulfate [ProAir HFA] 90 mcg/actuation Hfa Aerosol Inhaler 2 puff INHALATION Q4H PRN PRNRF: 0 Lumigan 0.01 % Drops 1 drp OPHTHALMIC (EYE) DAILY RF: 0 fluticasone propionate [Children's Flonase Allergy Rlf] 50 mcg/actuation spray,suspension 2 spray intranasal DAILY RF: 0 cyanocobalamin (vitamin B-12) [Vitamin B-12] 1,000 MCG tablet extended release 500 mcg PO QAM RF: 0 calcium carbonate-vitamin D3 1 EACH tablet 2 ea PO QAM RF: 0 aspirin [Aspir-81] 81 MG tablet,delayed release (DR/EC) 81 mg PO QAM RF: 0 Centrum Silver 1 EACH tablet 1 ea PO DIRECTED RF: 0 vitamin E (dl, acetate) 400 UNIT capsule 400 units PO QAM RF: 0 ascorbic acid (vitamin C) 1,000 mg tablet 1 gm PO DAILY RF: 0 Fish Oil 500 mg capsule 500 mg PO DAILY RF: 0 magnesium oxide 500 mg capsule 500 mg PO DAILY RF: 0 metoprolol tartrate 25 mg tablet 25 mg PO DAILY RF: 0 Discharge Instructions Additional Instructions: Surgery: Shoulder arthroscopy with extensive debridement, distal clavicle excision and subacromial decompression Activity: Please gradually increase range of motion motion and use of your shoulder. You may use your shoulder for all regular activities as soon as comfortable. Avoid heavy lifting, reaching overhead, and lifting away from body for approximately 6 to 8 weeks. You may use the sling whenever you are out of the house for a few weeks. At home it is best to remove the sling and rest the arm on a pillow at your side or support the operative side with your other hand. You may allow the arm to dangle at your side. A physical therapy prescription will be sent electronically to start in 2-3 weeks. Prescriptions: Aspirin 81 mg take 1 daily to prevent a blood clot for 2 weeks Naproxen 250 mg take 1-2 every 12 hours with a meal as needed for moderate pain Oxycodone 5 mg take 1-2 every 4-6 hours as needed for severe pain You may use [id number] Tylenol (acetaminophen) as needed for mild pain. These pain medications may be taken all at once or in different combinations as needed. Also, recommend Colace (docusate) as a stool softener as surgery and pain medicine cause constipation. Dressings: Remove shoulder bandage after 3 days. Leave the sticky Steri-Strips in place until they fall off or remove them after you shower. Cover the incisions with Band-Aids or leave them open to air. You may shower after 5 days. Follow-up: 10-[address] Juarez (07/14/20 at 10 AM) You may take off the leg compression stockings this evening at home. You may also leave them on a few days longer if you have a history of leg swelling or edema. Let us know right away if you develop any redness, drainage, fevers, chest pain, or trouble breathing. Do not drink alcohol or drive for at least 24 hours after anesthesia. Please call the office during business hours with any questions or concerns. Referrals: Flaquito Juarez MD [ [facility] STAFF PHYSICIAN] - Discharge Orders Discharge Orders: Discharge Order (Routine); Ordered 07/02/20 Ordered By: Flaquito Juarez DS: Diagnosis Discharge Diagnosis (1) Bursitis of right shoulder: Status: Acute (2) Arthritis of right acromioclavicular joint: Status: Acute (3) Traumatic tear of right rotator cuff: Status: Acute (4) Rupture of right proximal biceps tendon: Status: Acute
--- NOTE | 2020-07-02 14:44 | W.PM.OP ---
Date of service: 07/02/20 Time of Service: 14:36 Operative Note Operative Note DATE OF PROCEDURE: 07/02/20 PRE-OP DIAGNOSIS: Right: 1. Rotator cuff tear 2. LHB tendinopathy 3. Bursitis 4. AC Joint Arthritis POST-OP DIAGNOSIS: other Right: 1. Rotator cuff tear 2. Proximal biceps rupture 3. Bursitis 4. AC Joint Arthritis PROCEDURE: Right: 1. Extensive debridement, CPT# 00546. This involved using arthroscopic hand instruments, power instruments, and radiofrequency instruments to release to release the MGHL, debride areas of labral tearing, synovitis, and chondromalacia about the humeral head and within the glenohumeral joint anteriorly, superiorly and posteriorly. A loose body was removed with the shaver from the axillary recess. 2. Arthroscopic distal clavicle excision, CPT# 89310. This involved arthroscopically exposing the underside of the acromioclavicular joint, smoothing out bone spurs, and using a ronak to remove a few mm of the distal clavicle so there was no bone left engaging the acromion. 3. Subacromial decompression, CPT# 60237. This involved using arthroscopic power instruments and a radiofrequency wand to complete a bursectomy. The chemistry research assistant was medically required in order to help assist in techniques above, which require positioning the arm, holding the arthroscope, and manipulating multiple instruments and sutures at the same time. This cannot be done without the help of an experienced chemistry research assistant. SURGEON: Flaquito Juarez EQUIPMENT INSTALLATION PROFESSIONAL: Dominick Jackson ANESTHESIA: GETA and regional ESTIMATED BLOOD LOSS: 5 PATHOLOGY: none sent COMPLICATIONS: None Patient was transported to: PACU Patient's condition: stable Implants: None Indications: The patient was diagnosed with the above conditions and appropriately indicated for surgical intervention. Please see complete medical record for details. Findings: Exam under anesthesia: Reasonable range of motion. Crepitation with external rotation abduction. Forward elevation 135 degrees with gentle pressure, external rotation 55 degrees, internal rotation 75. Glenohumeral joint: Profound synovitis anteriorly superiorly and posteriorly. Long head of the biceps tendon ruptured intra-articularly. Adjacent supraspinatus rotator cuff small full-thickness tear. Intact subscapularis. Largely intact articular supraspinatus and infraspinatus with significant fraying more anteriorly and centrally especially of the supraspinatus. Moderate areas of full-thickness cartilage loss about the humeral head anteriorly centrally and posteriorly. Significant cartilage thinning glenoid. Loose body axillary recess likely cartilage piece. Subacromial space: Profound bursitis. Impinging underside distal clavicle on rotator cuff. Rotator cuff injection and fraying without significant bursal tearing. Procedure Description: In the operating room, general anesthesia was induced. Bilateral shoulders were examined. The patient was positioned in the beachchair position. All bony prominences were well-padded. Preoperative antibiotics were administered. The shoulder was prepped and draped in the usual sterile fashion. The correct patient, procedure, and side of the procedure were all verified prior to incision. Starting through the posterior portal a standard complete diagnostic arthroscopy was performed of the glenohumeral joint including inspection of the long head of the biceps, anterior and superior labrum, subscapularis tendon, supraspinatus and infraspinatus tendons, and axillary recess. The glenoid and humeral head cartilage as well as the posterior labrum were inspected from an anterior viewing portal. Significant findings and interventions noted above. The anterior portal was redirected towards the undersurface of the AC joint. A shaver and electrocautery device were used to clear soft tissue from the undersurface of the AC joint. A ronak was then inserted and used to remove the distalmost 5 mm of the distal clavicle, especially inferiorly. Care was taken to alternate between working through the anterior portal and viewing through the anterior portal to ensure that proper amount of bone was removed and there was no engaging bone left behind especially superiorly. Starting through the posterior portal, the arthroscope was directed into the subacromial space. A lateral 50 yard line lateral portal was created. A combination of power instruments and a radiofrequency ablator were used to debride bursitis anteriorly, posteriorly, and laterally as well as expose and minimally smooth bone spurring on the undersurface of the acromion. The coracoacromial ligament was preserved. The bursectomy was completed viewing laterally and working from posteriorly and the rotator cuff was thoroughly inspected with findings noted above. The shoulder was drained of arthroscopic fluid. All portal sites were copiously irrigated. These incisions were closed using 3-0 Monocryl in a buried fashion, covered with Mastisol, Steri-Strips, Xeroform, dry gauze, and ABDs. The dressings were covered and secured with Medipore tape. The operative extremity was placed into a sling for immobilization. The patient awoke from anesthesia without complication and was transferred to the recovery room in a stable condition.
== END 2020-07-02 16:55 | disposition home or self-care (01) ==
PROVIDERS: PCP Nurse Practitioner Family; Visit Provider Student in an Organized Health Care Education/Training Program
PROC: (CPT 29805; principal; 2020-07-02 09:45)
DX: M75.51 Bursitis of right shoulder (principal); M19.011 Primary osteoarthritis, right shoulder; S46.011A Strain of muscle(s) and tendon(s) of the rotator cuff of right shoulder, initial encounter; S46.211A Strain of muscle, fascia and tendon of other parts of biceps, right arm, initial encounter; G89.18 Other acute postprocedural pain; X58.XXXA Exposure to other specified factors, initial encounter; K21.9 Gastro-esophageal reflux disease without esophagitis; I12.9 Hypertensive chronic kidney disease with stage 1 through stage 4 chronic kidney disease, or unspecified chronic kidney disease; N18.30 Chronic kidney disease, stage 3 unspecified
CPT/HCPCS: 29823; 29824; 29826; 76942; J0690; J1100; J2001; J2250; J2370; J2405; J2704

== ENCOUNTER → 2020-07-14 09:53 | Outpatient (BNVA) | payer MEDICARE, SELFPAY | PROVIDERS: PCP Nurse Practitioner Family; Referring Provider Nurse Practitioner Family; Visit Provider Student in an Organized Health Care Education/Training Program | DX: Z47.89 Encounter for other orthopedic aftercare (principal) ==

== ENCOUNTER 2020-09-01 00:46 | Outpatient (CLI) | payer MEDICARE, SELFPAY ==
--- NOTE | 2020-09-01 | DI.MAMMO_ITS ---
EXAM: MAMMO SCREENING CLINICAL HISTORY: SCREENING, Z12.39. TECHNIQUE: Bilateral full field digital CC and MLO mammographic images were obtained with 3D tomosyn thesis and utilizing computer aided detection (CAD). COMPARISON: Prior mammograms dating back to 2010, the most recent being October 2018. FINDINGS: There are relatively symmetrical increased new asymmetric densities in both breasts which are seen on the CC views, located approximately 5 cm in from the nipple on the left side and 3 cm in from the ni pple on the right side. Spot compression views recommended. No other significant new focal findings in either breast. No malignant-appearing microcalcification groups in either breast there is no significant architectural distortion nor skin thickening-retract ion. IMPRESSION: Bilateral asymmetric densities seen on the CC views. Spot compression 3D cc views and possible breas t ultrasound recommended. BI-RADS Category 0 - Assessment Incomplete: Need additional imaging evaluation Breast Density - Category B - Scattered areas of fibroglandular density Breast density Category C or D implies that the patient has dense breast tissue. Dense breast tissue can make it harder to find cancer on a mammogram. Dense breast tissue is also associated with an incr eased risk of breast cancer. This information about the result of the mammogram report was provided to the patient to raise their awareness. Use this report when you speak with the patient about their risks for breast cancer, which includes their family history. At that time, you may recommend additional screening tests (Ultrasoun d or MRI) as these tests may add significant information. A negative radiographic report should not delay biopsy if a dominant or clinically suspicious mass is present. Up to ten percent of cancers are not identified on mammography. A negative report may reinforce clinical impression. Adenosis and dense breasts may obscure an underlying neoplasm. False positive reports average 6 to 10%. Patient will receive a letter notifying them of these results.
== END 2020-09-01 01:06 ==
PROVIDERS: PCP Nurse Practitioner Family; Visit Provider Nurse Practitioner Family
DX: Z12.31 Encounter for screening mammogram for malignant neoplasm of breast (principal); R92.8 Other abnormal and inconclusive findings on diagnostic imaging of breast
CPT/HCPCS: 77063; 77067

== ENCOUNTER → 2020-09-08 09:49 | Outpatient (BNVA) | payer MEDICARE, SELFPAY | PROVIDERS: PCP Nurse Practitioner Family; Visit Provider Student in an Organized Health Care Education/Training Program | DX: Z47.89 Encounter for other orthopedic aftercare (principal); M19.011 Primary osteoarthritis, right shoulder; M75.51 Bursitis of right shoulder | CPT/HCPCS: 99213 ==

== ENCOUNTER 2020-09-09 01:23 | Outpatient (CLI) | payer MEDICARE, SELFPAY ==
--- NOTE | 2020-09-09 | DI.US_ITS ---
EXAM: US BREAST bilateral complete CLINICAL HISTORY: Asymmetric Densities. TECHNIQUE: Bilateral breast ultrasound was performed including all 4 quadrants of both breasts, retr oareolar regions and both axillary regions. COMPARISON: Prior mammograms were reviewed. Today's spot mammogram diagnostic views reviewed FINDINGS: Today's ultrasound is the negative bilateral with no evidence of solid or significant cystic lesions in all 4 quadrants of both breasts nor significant focal ultrasound findings in the retroareolar bria ons. There is no axillary adenopathy on either side. IMPRESSION: Negative bilateral breast ultrasound. This implies that the small nodular density seen in both breas ts on the mammogram most probably benign. Appropriate follow-up, as discussed by myself with the patient today, is repeat bilateral breast mamm ogram in 3 months. BI-RADS Category 3 - 3 month - Probably Benign Finding: Recommend follow-up mammography in 3 months Breast Density - Category B - Scattered areas of fibroglandular density Breast density Category C or D implies that the patient has dense breast tissue. Dense breast tissue can make it harder to find cancer on a mammogram. Dense breast tissue is also associated with an incr eased risk of breast cancer. This information about the result of the mammogram report was provided to the patient to raise their awareness. Use this report when you speak with the patient about their risks for breast cancer, which includes their family history. At that time, you may recommend additional screening tests (Ultrasoun d or MRI) as these tests may add significant information. A negative radiographic report should not delay biopsy if a dominant or clinically suspicious mass is present. Up to ten percent of cancers are not identified on mammography. A negative report may reinforce clinical impression. Adenosis and dense breasts may obscure an underlying neoplasm. False positive reports average 6 to 10%. Patient will receive a letter notifying them of these results.
--- NOTE | 2020-09-09 | DI.US_ITS ---
EXAM: US BREAST LT LIMITED CLINICAL HISTORY: Asymmetric Densities. TECHNIQUE: Limited ultrasound of the right breast was performed. COMPARISON: Prior mammograms were reviewed. FINDINGS: Please refer to bilateral complete breast ultrasound report dictated today. IMPRESSION: Appropriate follow-up is . Category: Density: Breast density Category C or D implies that the patient has dense breast tissue. Dense breast tissue can make it harder to find cancer on a mammogram. Dense breast tissue is also associated with an incr eased risk of breast cancer. This information about the result of the mammogram report was provided to the patient to raise their awareness. Use this report when you speak with the patient about their risks for breast cancer, which includes their family history. At that time, you may recommend additional screening tests (Ultrasoun d or MRI) as these tests may add significant information. A negative radiographic report should not delay biopsy if a dominant or clinically suspicious mass is present. Up to ten percent of cancers are not identified on mammography. A negative report may reinforce clinical impression. Adenosis and dense breasts may obscure an underlying neoplasm. False positive reports average 6 to 10%. Patient will receive a letter notifying them of these results.
--- NOTE | 2020-09-09 10:15 | DI.MAMMO_ITS ---
EXAM: MG MAMMO SCREEN CALL BACK BI CLINICAL HISTORY: F/U MAMMO, BILAT ASYMMETRIC DENSITIES. TECHNIQUE: Spot compression CC mammographic images were obtained both breasts with 3D tomosynthesis and utilizing computer aided detection (CAD). COMPARISON: Prior mammograms dating back to 2010, the most recent being the screening mammogram 08/16. FINDINGS: The left breast nodule appears less convincing on the additional view performed today. The right breast nodule is somewhat equivocal We therefore proceeded with bilateral breast ultrasound which revealed no significant focal ultrasoun d findings. IMPRESSION: As above. Appropriate follow-up is repeat bilateral mammogram in 3 months. Findings and recommendation were discussed by myself with the patient today. BI-RADS Category 3 - 3 month - Probably Benign Finding: Recommend follow-up mammography in 3 months Breast Density - Category B - Scattered areas of fibroglandular density Breast density Category C or D implies that the patient has dense breast tissue. Dense breast tissue can make it harder to find cancer on a mammogram. Dense breast tissue is also associated with an incr eased risk of breast cancer. This information about the result of the mammogram report was provided to the patient to raise their awareness. Use this report when you speak with the patient about their risks for breast cancer, which includes their family history. At that time, you may recommend additional screening tests (Ultrasoun d or MRI) as these tests may add significant information. A negative radiographic report should not delay biopsy if a dominant or clinically suspicious mass is present. Up to ten percent of cancers are not identified on mammography. A negative report may reinforce clinical impression. Adenosis and dense breasts may obscure an underlying neoplasm. False positive reports average 6 to 10%. Patient will receive a letter notifying them of these results.
== END 2020-09-09 01:43 ==
PROVIDERS: PCP Nurse Practitioner Family; Visit Provider Nurse Practitioner Family
DX: Z12.31 Encounter for screening mammogram for malignant neoplasm of breast (principal); R92.8 Other abnormal and inconclusive findings on diagnostic imaging of breast; N64.59 Other signs and symptoms in breast
CPT/HCPCS: 76642; 77063; 77067

== ENCOUNTER 2020-09-17 14:00 | Outpatient (REF) | payer MEDICARE, SELFPAY ==
[2020-09-17 19:03] LABS: Abs Immature Grans 0.02 10^3/uL (0.0-0.06); Absolute Basophil Count 0.03 10^3/uL (0.0-0.2); Absolute Eosinophil Count 0.15 10^3/uL (0.0-0.7); Absolute Monocyte Count 0.79 10^3/uL (0.1-0.8); Absolute Neutrophil Count 2.95 10^3/uL (1.2-6.7); Basophils % 0.5; Eosinophils % 2.5; HGB 13.2 g/dL (11.2-15.7); Immature Grans % 0.3; Lymphocytes % 33.7; MCH 31.9 pg (27.0-33.0); MCV 96.6 fL (80-95); MPV 9.7 fL (8.0-11.0); Monocytes % 13.3; Neutrophils % 49.7; Nucleated RBC 0 %; Platelet Count 234 10^3/uL (130-400); RBC 4.14 10^6/uL (3.93-5.22); RDW 12.4 % (11.7-14.6); RDW-SD 44.2 fL; WBC 5.94 10^3/uL (4.4-10.8)
[2020-09-17 19:20] LABS: ALT 51 U/L (14-59); AST 30 U/L (15-37); Alkaline Phosphatase 102 U/L (46-116); Anion Gap 6.7 mmol/L (3-11); BUN 13 mg/dL (7-18); Bilirubin, Total 0.4 mg/dL (0.2-1.0); CO2 29.3 mmol/L (21.0-32.0); CREATININE 1.1 mg/dL (0.55-1.02); Calcium 8.9 mg/dL (8.5-10.1); Chloride 102 mmol/L (98-107); Estimated GFR 48.69 (mL/min/1.73m2); Glucose 75 mg/dL (74-106); Potassium 4.5 mmol/L (3.5-5.1); Sodium 138 mmol/L (136-145); TSH (W/Ref FT4) 3.22 uIU/mL (0.36-3.74); Total Protein 7.5 g/dL (6.4-8.2)
[2020-09-20 11:53] LABS: Lyme Ab w Rflx to Lyme Confirm Negative (Negative)
[2020-09-21 06:01] LABS: Anaplasma phagocytophilum Negative (Negative); B. miyamotoi PCR Negative (Negative); Babesia divergens/MO-1 Negative (Negative); Babesia duncani Negative (Negative); Babesia microti Negative (Negative); Ehrlichia chaffeensis Negative (Negative); Ehrlichia ewingii/canis Negative (Negative); Ehrlichia muris eauclairensis Negative (Negative)
== END 2020-09-17 14:01 | disposition home or self-care (01) ==
LOC: NCHCN 14:00
PROVIDERS: PCP Nurse Practitioner Family; Visit Provider Nurse Practitioner Family
DX: N18.30 Chronic kidney disease, stage 3 unspecified (principal); R73.03 Prediabetes; I10 Essential (primary) hypertension; Z11.8 Encounter for screening for other infectious and parasitic diseases
CPT/HCPCS: 80053; 87798; 84443; 85025; 86618

== ENCOUNTER → 2020-10-19 10:25 | Outpatient (BNVA) | payer MEDICARE, SELFPAY | PROVIDERS: PCP Nurse Practitioner Family; Referring Provider Nurse Practitioner Family; Visit Provider Surgery | DX: R10.84 Generalized abdominal pain (principal); K21.9 Gastro-esophageal reflux disease without esophagitis; R19.7 Diarrhea, unspecified | CPT/HCPCS: 99212; 99214 ==

== ENCOUNTER 2020-11-08 01:56 | Outpatient (CLI) | payer MEDICARE, SELFPAY ==
[2020-11-08 11:48] LABS: Source Nasal/Nares
[2020-11-08 21:03] LABS: COVID-19 PCR Negative (Negative)
== END 2020-11-08 01:57 | disposition home or self-care (01) ==
LOC: LBO 01:57
PROVIDERS: PCP Nurse Practitioner Family; Visit Provider Surgery
DX: Z20.822 Contact with and (suspected) exposure to COVID-19 (principal); Z01.818 Encounter for other preprocedural examination
CPT/HCPCS: 87635

== ENCOUNTER 2020-11-10 07:06 | Day surgery (SDC) | payer MEDICARE, SELFPAY ==
--- NOTE | 2020-11-10 06:42 | ENDO_ITS ---
Date of service: 11/10/20 Time of Service: 09:06 Endoscopy Report DATE OF PROCEDURE: 11/10/20 PRE-OP DIAGNOSIS: Abdominal pain, diarrhea and GERD POST-OP DIAGNOSIS: other (Gastritis, esophagitis, Hiatal Hernia, narrowing of proximal esophagus, diverticulosis) PROCEDURE: 1. EGD with biopsies 2. Colonoscopy SURGEON: Caterina Mata ANESTHESIA TYPE: General:No Airway (ASA 2/ Cordelia Suárez, MIO) and General LMA/ETT ESTIMATED BLOOD LOSS: 3 PATHOLOGY: other (Antrum, GE junction and proximal esophagus bx, Gastric polyps) COMPLICATIONS: None DISPOSITION: same day INDICATIONS: (1) Abdominal pain: ? ? ? Mrs Lowe is a pleasant 75-year-old female who has been having some ongoing abdominal pain and diarrhea.? I saw her back in June for this at that time it was mostly right lower quadrant.? We did do a CT scan to make sure that she did not have a hernia.? This was negative.? She continues to have loose stools although she has noted that it is worse if she eats ice cream.? I did discuss with her that people do develop food intolerances as they get older sometimes.? Lactose is quite common as one of the foods that people can have issues with.? Her last colonoscopy was 8 years ago.? Due to her ongoing issues I did recommend a colonoscopy just to make sure that there is not anything else going on.? She is in agreement with this. Risks, benefits and complications have been reviewed. Complications include but are not limited to bleeding, pain, perforation, missed small lesion/polyp, sore throat, aspiration and adverse reaction to the medications. Questions were entertained and answered to their satisfaction and they wished to proceed. No guarantees were given or implied. Proceed with colonoscopy under sedation at the time of her upper endoscopy. (2) GERD (gastroesophageal reflux disease): ? ? ? Mrs Lowe is a pleasant 75-year-old female who I am seeing today because of acid reflux symptoms intermittently over the last year.? She has been chronically on omeprazole 40 mg since her late 40s early 50s.? She also has some heartburn but that is quite infrequent.? There is a question of dysphagia although from her history it almost sounds like it is getting stuck in the oropharynx more than in the esophagus itself.? She has never had an EGD.? She also has a past history of swallowing lye when she was a year old.? Recommended EGD under sedation with prior Covid testing.? Risks, benefits and complications have been reviewed. Complications include but are not limited to bleeding, pain, perforation, sore throat, aspiration, and adverse reaction to the medications.? Questions were entertained and answered to their satisfaction and they wished to proceed. No guarantees were given or implied.? COVID-19 testing explained to the patient. Reason for test reviewed. Quarantine per state requirements reviewed with patient. Patient understands and agrees to testing. PREP: Miralax/Dulcolax PROCEDURE START TIME: : PROCEDURE END TIME: :49 COLONOSCOPY RETRACTION TIME: 9 minutes FINDINGS: Diverticulosis PROCEDURE DESCRIPTION: After informed consent was obtained the patient was take to the procedure room and placed in a supine position. Monitors were applied and a time out was done. The patients name, date of , procedure type, allergies to medications and metal in their body was reviewed. A bite block was placed and the patient was sedated. Once sedated and comfortable the gastroscope was advanced through the oropharynx which was grossly normal into the esophagus. In the proximal esophagus there was scar tissue noted that narrowed the esophagus. The scope was passed and this dilated the area. The mid-esophagus was normal. In the distal esophagus there was mild inflammation noted. The scope was advanced into the stomach and through the pylorus into the 3rd portion of the duodenum. The duodenum was noted to be normal. Biopsies were done to rule out Celiac. The scope was retracted back into the stomach. There was mild inflammation noted in the antrum and some benign appearing polyps. Biopsies were done to rule out H. pylori. There were no ulcers. 2 polyps were removed. The scope was retro- flexed. The cardia and fundus were noted to be normal. There was a hiatal hernia noted. The scope was retracted back into the esophagus and biopsies were done of the GE junction to rule out Nguyễn's. The Z line was regular. The GE junction was at 32 cm. Biopsies were done of the proximal esophagus were the scarr tissue and narrowing was noted. While the patient was still sedated they were placed in a left decubitous position. A rectal exam was done. External exam was normal. Internal exam revealed a normal sphincter tone and no palpable masses. The scope was then introduced and retro-flexed. No internal hemorrhoids, masses or polyps were identified on retroflexion. The scope was then advanced to the cecum without difficulty. The ileocecal valve and appendiceal orifice were identified. The prep was good. The scope was then slowly retracted over 9 minutes back into the rectum. There were no polyps. There was moderate diverticulosis noted in the descending and sigmoid colon. The scope was removed and the patient was woken up and taken back to Same day surgery in stable condition. The patient tolerated the procedure well and there were no immediate complications. Follow up: 2 weeks in the office
--- NOTE | 2020-11-10 06:43 | W.PM.DSUDISC ---
Discharge Plan Disposition Patient Disposition: HOME Condition: Good Discharge Details Reason For Visit: Colonoscopy and EGD Attending Provider: Caterina Mata Primary Care Provider: Byron Gibson Home Meds and New Rx's Prescriptions: New sucralfate [Carafate] 1 gram tablet 1 g PO QID Qty: 56 RF: 0 Continued omeprazole 20 mg capsule,delayed release(DR/EC) 40 mg PO DAILY RF: 0 simvastatin 40 MG tablet 40 mg PO DAILY RF: 0 cholecalciferol (vitamin D3) 2,000 UNIT tablet 2,000 unit PO DAILY RF: 0 brinzolamide [Azopt] 1 % Drops,Suspension 1 drp OPHTHALMIC (EYE) BID RF: 0 albuterol sulfate [ProAir HFA] 90 mcg/actuation Hfa Aerosol Inhaler 2 puff INHALATION Q4H PRN PRNRF: 0 Lumigan 0.01 % Drops 1 drp OPHTHALMIC (EYE) DAILY RF: 0 gabapentin 300 mg capsule 300 mg PO TID 30 Days Qty: 90 RF: 11 cyanocobalamin (vitamin B-12) [Vitamin B-12] 1,000 MCG tablet extended release 500 mcg PO QAM RF: 0 calcium carbonate-vitamin D3 1 EACH tablet 2 ea PO QAM RF: 0 aspirin [Aspir-81] 81 MG tablet,delayed release (DR/EC) 81 mg PO QAM RF: 0 Centrum Silver 1 EACH tablet 1 ea PO DIRECTED RF: 0 vitamin E (dl, acetate) 400 UNIT capsule 400 units PO QAM RF: 0 ascorbic acid (vitamin C) 1,000 mg tablet 1 gm PO DAILY RF: 0 Fish Oil 500 mg capsule 500 mg PO DAILY RF: 0 magnesium oxide 500 mg capsule 500 mg PO DAILY RF: 0 metoprolol tartrate 25 mg tablet 25 mg PO DAILY RF: 0 naproxen 250 mg tablet 250 - 500 mg PO BID PRN (Reason: Moderate pain or swelling) Qty: 60 RF: 0 furosemide 20 mg tablet 20 mg PO DAILY RF: 0 Flovent HFA 110 mcg/actuation Hfa Aerosol Inhaler 2 puff INHALATION BID RF: 0 Discontinued bisacodyl [Dulcolax (bisacodyl)] 5 mg tablet,delayed release (DR/EC) 5 mg PO ONCE Qty: 4 RF: 0 polyethylene glycol 3350 17 gram powder in packet 255 g PO DAILY Qty: 15 RF: 0 Discharge Instructions Instructions: Diet for Stomach Ulcers and Gastritis (ED), Gastric Polyps (DC), Gastritis (DC), Esophagitis (DC), Hiatal Hernia (DC), Diverticulosis (DC) Additional Instructions: Findings: mild inflammation of the stomach, benign stomach polyps, inflammation of the esophagus, scar tissue in the esophagus and Hiatal Hernia Diverticulosis Follow up: 10 days Please call if you develop: fevers >101.5 Nausea or Vomiting Abdominal pain that is not transient Rectal bleeding that is more then a tbsp A hard abdomen and inability to pass gas DAY SURGERY UNIT POST ENDOSCOPY INSTRUCTIONS Instructions for everyone who is given Anesthesia: For your safety, please do the following for the next 24 Hours: a. Do not drive or operate dangerous equipment b. Do not drink alcohol beverages or use any recreational drugs for the first 24 hours or while taking pain medications. The medications in your body may have a reaction that can be dangerous. c. Do not make any important decisions or sign any important papers 1. Generally there are no restrictions on your activity after a day or so has gone by, but you may feel a bit fatigued for a few days. 2. After you arrive home you may have a light meal and return to a normal diet as you can tolerate it without feeling sick to your stomach. 3. After surgery, you may feel pain or discomfort. This should be only transient, but if it persists please contact your doctor. 4. If there are any questions regarding the findings of your procedure, please feel free to contact your doctor. 6. If you are unable to contact your doctor with a problem, contact the hospital at [phone]. 7. Continue all your regular medications unless directed otherwise. I understand the above instructions and have no questions. Signature of Patient or Responsible Adult Escort Date/Time Name of Responsible Adult Escort Signature of Nurse Date/Time Referrals: Caterina Mata MD [ [facility] STAFF PHYSICIAN] - 11/19/20 10:30 am Activity:: Activity as Tolerated Diet:: As Tolerated Discharge Orders Discharge Orders: Discharge Order (Routine); Ordered 11/10/20 Ordered By: Caterina Mata
[2020-11-10 07:15] VITALS: BP 134/84; PULSE 67; RESP 16; TEMP 35.9; O2SAT 97
--- NOTE | 2020-11-10 07:37 | ANES.PREOP_ITS ---
General Info Date of Service Date Performed: 11/10/20 Height: 5 ft 3 in Weight: 84.3 kg Body Mass Index (BMI): 32.9 Surgical Procedure: Operation Date: 11/10/20 08:35 Proposed Procedures Side Surgeon p Colonoscopy/Gastroscopy Caterina Mata MD Meds Allergies and Home Medications Allergies Allergy/AdvReac Type Severity Reaction Status Date / Time tramadol Allergy Swelling/Ed Verified 11/10/20 07:19 domenic Home Medication Medication Instructions Recorded Centrum Silver 1 ea PO DIRECTED 08/20/12 aspirin [Aspir-81] 81 mg PO QAM 08/20/12 calcium carbonate-vitamin D3 2 ea PO QAM 08/20/12 cyanocobalamin (vitamin B-12) 500 mcg PO QAM 08/20/12 [Vitamin B-12] vitamin E (dl, acetate) 400 units PO QAM 08/20/12 cholecalciferol (vitamin D3) 2,000 unit PO DAILY 02/11/18 simvastatin 40 mg PO DAILY tab 02/11/18 ascorbic acid (vitamin C) 1,000 mg 1 gm PO DAILY tab 02/19/18 tablet magnesium oxide 500 mg capsule 500 mg PO DAILY 02/19/18 metoprolol tartrate 25 mg tablet 25 mg PO DAILY 02/19/18 omega-3 fatty acids 500 mg capsule 500 mg PO DAILY 02/19/18 omeprazole 20 mg capsule,delayed 40 mg PO DAILY cap 02/19/18 release Lumigan 1 drp OPHTHALMIC (EYE) DAILY 08/04/19 albuterol sulfate [ProAir HFA] 2 puff INHALATION Q4H PRN PRN 08/04/19 brinzolamide [Azopt] 1 drp OPHTHALMIC (EYE) BID 08/04/19 naproxen 250 - 500 mg PO BID PRN #60 tab 07/02/20 gabapentin 300 mg capsule 300 mg PO TID 30 Days #90 cap 08/16/20 bisacodyl 5 mg tablet,delayed 5 mg PO ONCE #4 tab 10/19/20 release polyethylene glycol 3350 17 gram 255 g PO DAILY #15 ea 10/19/20 oral powder packet furosemide 20 mg PO DAILY 11/08/20 fluticasone propionate [Flovent 2 puff INHALATION BID 11/10/20 HFA] Current Visit Medications: Current Medications Generic Name Dose Route Start Last Admin Trade Name Freq PRN Reason Stop Dose Admin Hyoscyamine Sulfate 0.125 mg 11/10/20 06:44 Hyoscyamine 0.125 Mg Sl/Oral/Chew SL DIRECTED PRN Ringer's Solution 1,000 mls @ 80 mls/hr 11/10/20 06:00 IV 12/09/20 23:59 INFUSION [facility] IV Miscellaneous Supplies 1 each 11/10/20 06:00 Iv Access IV 12/09/20 23:59 DIRECTED TERRI Ondansetron HCl 4 mg 11/10/20 06:44 Ondansetron 4 Mg/2 Ml Vial IVP Q4H PRN PRN Nausea / Vomiting Sodium Chloride 0 ml 11/10/20 06:00 Normal Saline Flush 10 Ml Syr IV 12/09/20 23:59 PRN PRN Sodium Chloride 0 ml 11/10/20 06:00 Normal Saline 10 Ml Vial IJ 12/09/20 23:59 DIRECTED PRN Sterile Water 0 ml 11/10/20 06:00 Water,Injection,Sterile 10 Ml Vial IJ 12/09/20 23:59 DIRECTED PRN PFSH Active Problems Active Problems: Problem Status Onset Code Screening for colorectal cancer Z12.11, Z12.12 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 states she has had this worked up, but nothing was found. Depression Diverticulosis of colon Exertional shortness of breath Family history of breast cancer GERD (gastroesophageal reflux disease) Glaucoma HTN (hypertension) Hyperlipidemia Hyponatremia Lumbar radiculitis Osteopenia Pain in right shoulder Pedal edema Prediabetes Right hip pain Sinusitis Skin rash Stage 3 chronic kidney disease Surgical History Surgical History Cholecystectomy Hx of arthroscopy of shoulder L4-5 Laminectomy (06/21/17) L4-S1 Fusion (06/21/17) Open Carpal Tunnel release Replacement of total knee joint pt. denies this states she just had an arthroscopy Tonsillectomy and adenoidectomy Tobacco Smoking/Tobacco Use Status: Never Second hand exposure: Yes (former exposure) Alcohol Alcohol Intake: current Alcohol intake frequency: holidays/special occasions only Substance Use Substance use: Never Substance use type: does not use Vital Signs and Lab Results Vital Signs Most Recent Vital Signs in EMR: Most Recent Vital Signs Temp Pulse Resp BP Pulse Ox 35.9 C L 67 16 134/84 97 11/10/20 07:15 11/10/20 07:15 11/10/20 07:15 11/10/20 07:15 11/10/20 07:15 Lab Results Blood Type / Crossmatch: No Data to Display Complete Blood Count: No Data to Display Complete Metabolic Panel: No Data to Display Liver Function Panel: No Data to Display Coagulation Panel: No Data to Display Cardiac Panel: No Data to Display Arterial Blood Gas: No Data to Display Venous Blood Gas: No Data to Display Pancreas Panel: No Data to Display Thyroid Panel: No Data to Display Infectious Disease: Coronavirus (COVID-19)(PCR) Negative (Negative) 11/08/20 10:25 11/08/20 Coronavirus 2019 Source Nasal/nares 11/08/20 10:25 11/08/20 Blood Cultures: No Data to Display Toxicology Panel: No Data to Display Imaging and Studies Imaging and Studies Echocardiogram Summary: 1. Left ventricle: The cavity size was normal. Wall thickness was normal. Systolic function was normal. The estimated ejection fraction was 55-60%. Wall motion was normal; there were no regional wall motion abnormalities. Some parameters suggest diastolic dysfunction. 2. Aortic valve: There was mild regurgitation. 3. Mitral valve: Mildly calcified annulus. There was mild regurgitation. 4. Right ventricle: The cavity size was normal. Wall thickness was normal. Systolic function was normal. 1. Left ventricle: The cavity size was normal. Wall thickness was normal. Systolic function was normal. The estimated ejection fraction was 55-60%. Wall motion was normal; there were no regional wall motion abnormalities. Some parameters suggest diastolic dysfunction. 2. Aortic valve: There was mild regurgitation. 3. Mitral valve: Mildly calcified annulus. There was mild regurgitation. 4. Right ventricle: The cavity size was normal. Wall thickness was normal. Systolic function was normal. 12/01/16 Pulmonary Function Summary: 10/28/18INTERPRETATION OF STUDY Spirometry shows no evidence of obstructive airways disease. There is some, but not significant bronchodilator response. LUNG VOLUMES - Lung volumes shows no evidence of restriction. DIFFUSION CAPACITY- Normal. AIRWAY RESISTANCE - Normal. IMPRESSION Overall normal pulmonary function study. There is some improvement with bronchodilator administration, however, this may be related to a better patient effort and overall the amount of response is not significant. Clinical correlation therefore is recommended. If underlying diagnosis of asthma is suspected, proceeding with Methacholine challenge testing may prove to be useful. Anesthesia Assessment and Plan Anesthesia History Personal History: No History of Anesthesia Complications and Malignant Hyperthermia Family History: No Family History of Anesthesia Complications Exercise Tolerance Exercise Tolerance: Metabolic Equivalents>4 Pertinent Negatives Pertinent Negatives: No Symptoms of GERD (Well controlled) and Other Cardiac & Pulmonary Exam Cardiac Exam: Normal S1/S2 Heart Sounds Pulmonary Exam: Clear Bilateral Breath Sounds Airway Exam Known Difficult Airway: No Mallampati Class: 1 Mouth Opening: Normal (> 3cm) Thyromental Distance: Greater than 3 cm Neck Range of Motion: Full ROM Neck Circumference: Normal Teeth Condition: Normal Dentition, Removable Dentures/Plates Upper and Removable Dentures/Plates Lower ASA Classification ASA Score: ASA 2 Emergency Case?: No NPO Status NPO Status: NPO Clears >2 hours, Solids >8 hours Anesthesia Plan Resuscitation Status: Full Code Anesthesia Technique: General Anesthesia Airway Planned: Natural Airway Monitors Used: Standard Monitors
[2020-11-10] MEDS: Lactated Ringers 1,000 ML 80 ML IV (07:46)
[2020-11-10 08:08] VITALS: BMI 32.9
--- NOTE | 2020-11-10 08:20 | STOM_PTH ---
PATIENT: Negar Lowe LOC: [facility] U#:[id number] AGE/SX: 75/F ROOM: RE11/10/[address]: Caterina Mata MD : [id number] BED: DIS: 11/10/2020 SPEC #: [id number] RECD: 11/10/20 11:47 STATUS: BIANCA REQ #: [id number] ALVAREZ: 11/10/20 08:[address]: Caterina Mata DEPT: Surgical Specimen RECD BY: Nereida Melgar ENTERED: 11/10/20 11:49 SP TYPE: STOMACH OTHR DR: Byron Gibson Tissues: 1 - BIOPSY BOWEL 2 - STOMACH BIOPSY 3 - STOMACH BIOPSY 4 - ESOPHAGUS BIOPSY 5 - ESOPHAGUS BIOPSY Procedures: GROSS AND MICRO LEVEL 4 Comments: [id number]
[2020-11-10 08:55] VITALS: BP 117/69; PULSE 61; RESP 16; TEMP 36.2; O2SAT 92
--- NOTE | 2020-11-10 08:56 | W.ANESPOSTOP ---
Postoperative Evaluation Date, Time and Location Date Performed: 11/10/20 Time Performed: 08:57 Patient Location: Day Surgery Unit Vital Signs Most Recent Imported Vital Signs: Most Recent Vital Signs Temp Pulse Resp BP Pulse Ox 35.9 C L 67 16 134/84 97 11/10/20 07:15 11/10/20 07:15 11/10/20 07:15 11/10/20 07:15 11/10/20 07:15 Most Recent Manually Entered Vital Signs: Adult Blood Pressure: 117/69 Heart Rate: 62 Respirations: 17 Oxygen Saturation (%): 92 Temperature (C): 36.2 C Pain Score (0-10 Scale): 0 Assessment Mental Status: Awake (Alert & Oriented to Patient Baseline) Airway and Respiratory Function: Patent airway with normal (patient baseline) respiratory exam Cardiovascular Function: Hemodynamically Stable Hydration Status: Adequately Hydrated Nausea & Vomiting: No Nausea or Vomiting Pain: Pt. Denies Any Pain Peripheral Nerve Block: Patient did not receive a nerve block
[2020-11-10 08:58] VITALS: BP 117/69; PULSE 62; RESP 17; TEMPC 36.2; O2SAT 92
[2020-11-10 09:20] VITALS: BP 132/84; PULSE 60; RESP 16; TEMP 36.4; O2SAT 97
== END 2020-11-10 10:30 | disposition home or self-care (01) ==
LOC: SUR 07:07
PROVIDERS: PCP Nurse Practitioner Family; Visit Provider Surgery
PROC: (CPT 43239; principal; 2020-11-10 08:30)
DX: K21.9 Gastro-esophageal reflux disease without esophagitis (principal); R19.7 Diarrhea, unspecified; K57.30 Diverticulosis of large intestine without perforation or abscess without bleeding; K29.70 Gastritis, unspecified, without bleeding; K44.9 Diaphragmatic hernia without obstruction or gangrene; K20.90 Esophagitis, unspecified without bleeding; K31.7 Polyp of stomach and duodenum
CPT/HCPCS: 43239; 45378; 88305; J2001

== ENCOUNTER → 2020-11-17 09:26 | Outpatient (BNVA) | payer MEDICARE, SELFPAY | PROVIDERS: PCP Nurse Practitioner Family; Referring Provider Nurse Practitioner Family; Visit Provider Student in an Organized Health Care Education/Training Program | DX: Z47.89 Encounter for other orthopedic aftercare (principal); M19.011 Primary osteoarthritis, right shoulder; M75.51 Bursitis of right shoulder | CPT/HCPCS: 20610; 99213; J1030 ==

== ENCOUNTER 2020-12-07 08:44 | Outpatient (CLI) | payer MEDICARE, SELFPAY ==
[2020-12-07 09:05] VITALS: BP 150/78; PULSE 71; RESP 16; TEMP 36; O2SAT 99
[2020-12-07] MEDS: Omnipaque 240 MG/ML 50 ML BTL IJ (09:40)
--- NOTE | 2020-12-07 09:40 | DI.RAD_ITS ---
Exam(s) XR PAIN CLINIC SACRIOILIAC 2V EXAM: XR PAIN CLINIC SACRIOILIAC 2V CLINICAL HISTORY: Dx: Sacroiliac Joint Dysfunction TECHNIQUE: 2D and realtime digital imaging was performed. COMPARISON: No exams were available for comparison FINDINGS: C-arm fluoroscopy was utilized by Dr. Stevenson during bilateral SI joint injection. Hard copy show needle p lacement and injection at both SI joints. IMPRESSION: RADIATION DOSE DELIVERED: hammad Hart= 20.8 mGy
[2020-12-07] MEDS: methylPREDNISolone ACETATE 80 MG/ML VIAL IJ (09:42)
[2020-12-07 09:43] VITALS: BP 144/64; PULSE 67; RESP 21; O2SAT 98
[2020-12-07] MEDS: Bupivacaine 0.5% Pres-Free 10 ML VIAL IJ (09:43)
--- NOTE | 2020-12-07 09:44 | PDOC.PAIN_ITS ---
Pain Clinic Procedure Note Procedure Note Procedure Note: INTRA-ARTICULAR SI JOINT INJECTION CIARA CHRISTIANSON has been referred to the [facility] for intra- articular SI joint injection. pre-operative diagnosis: sacroiliac joint dysfunction post-operative diagnosis: same as above COMMENTS: patient has multiple lumbar surgeries including instrumented fusion, she responded well from previous bilateral SI joint injection in 11/2019, and her pain slowly returned around October. Pre-procedure VAS score 5/10. Patient was interviewed and the medical record reviewed. There were no medical, pharmacologic, radiographic or other structural contraindications to attempting fluoroscopically guided intra-articular SI joint injection. Risks and expected side effects as well as potential benefit of the procedure were reviewed and voiced concerns addressed. The printed consent form was signed and witnessed. Standard time-out procedure was performed. Patient was placed in the prone position on the fluoroscopy table and automated blood pressure cuff and pulse oximeter applied. The skin entry point for approaching left SI joints was identified under the most advantageous fluoroscopic view and marked. Following thorough Chlorhexadine preparation of the skin and draping and 1% lidocaine infiltration of the skin entry point and subcutaneous tissues, a 22 gauge spinal needle was placed under fluoroscopic guidance into left SI joints was identified under the most advantageous fluoroscopic view and marked. Following thorough Chlorhexadine preparation of the skin and draping and 1% lidocaine infiltration of the skin entry point and subcutaneous tissues, a 22 gauge spinal needle was placed under fluoroscopic guidance into left SI joint. Intra-articular placement was confirmed by a clear arthrogram resulting from the injection of 0.25ml Omnipaque 240, 1ml 0.5% Bupivocaine, and 40mg Depomedrol (80mg/ml) were injected intra-articularily with an initial reproduction of a significant component of the usual pain. The same thing was repeated on the right SI joint as above. Bilateral SI joint injection was performed with total of 80mg/ml (40mg/ml per joint) mixed with 2cc of 0.5% Bupivocaine (1cc per joint). Total of ~2cc of Omnipaque 240 used. Vital signs were stable throughout the procedure and were as recorded in the docflowsheet by the nursing staff. Follow up plans and appointments were discussed with the patient. Post procedure instruction was given as documented in nursing documentation and having met discharge criteria, and was discharged from the Pain Management Center. COMMENTS: patient tolerated procedure well. If this continues to provide sustained pain relief, would recommend repeat on prn basis, not exceeding 3 times per 12 calendar months. I personally performed the entire procedure. Brinda Sheldon MD Pain Management CC: Byron Gibson
== END 2020-12-07 08:45 | disposition home or self-care (01) ==
LOC: PC 08:44
PROVIDERS: PCP Nurse Practitioner Family; Visit Provider Internal Medicine
DX: M53.3 Sacrococcygeal disorders, not elsewhere classified (principal)
CPT/HCPCS: 27096; 72200; J1040; Q9967

== ENCOUNTER → 2020-12-10 10:31 | Outpatient (BNVA) | payer MEDICARE, SELFPAY | PROVIDERS: PCP Nurse Practitioner Family; Referring Provider Nurse Practitioner Family; Visit Provider Surgery | DX: Z48.815 Encounter for surgical aftercare following surgery on the digestive system (principal); K22.70 Barrett's esophagus without dysplasia | CPT/HCPCS: 99212; 99213 ==

== ENCOUNTER 2020-12-15 01:23 | Outpatient (CLI) | payer MEDICARE, SELFPAY ==
--- NOTE | 2020-12-15 | DI.MAMMO_ITS ---
Exam(s) MAMMO DIAGNOSTIC BI EXAM: MAMMO DIAGNOSTIC BI CLINICAL HISTORY: DIAGNOSTIC, F/U TO ABNL MAMMO. TECHNIQUE: Unilateral spot mammographic images were obtained with 3D [employer] and util izing computer aided detection (CAD). COMPARISON: Prior mammograms dating back to 2010, the most recent being August 2020. Ultrasound Sang h 2020 was also reviewed FINDINGS: There is no significant change appears to distribution of the fibroglandular tissue. Finding in the left breast appears unchanged and remains benign appearance. Previously described finding in the right breast is actually less evident on today's study. IMPRESSION: Stable benign-appearing findings. No radiographic evidence of malignancy. Appropriate follow-up is to keep this patient yearly mammogram schedule, this implying that her next mammogram would be in August 2021, with earlier imaging if a self detected breast change is noted.. The patient was informed of the findings and follow-up recommendations prior to leaving the [facility]. BI-RADS Category 2 - Benign Findings Breast Density - Category B - Scattered areas of fibroglandular density Breast density Category C or D implies that the patient has dense breast tissue. Dense breast tissue can make it harder to find cancer on a mammogram. Dense breast tissue is also associated with an incr eased risk of breast cancer. This information about the result of the mammogram report was provided to the patient to raise their awareness. Use this report when you speak with the patient about their risks for breast cancer, which includes their family history. At that time, you may recommend additional screening tests (Ultrasoun d or MRI) as these tests may add significant information. A negative radiographic report should not delay biopsy if a dominant or clinically suspicious mass is present. Up to ten percent of cancers are not identified on mammography. A negative report may reinforce clinical impression. Adenosis and dense breasts may obscure an underlying neoplasm. False positive reports average 6 to 10%. Patient will receive a letter notifying them of these results.
== END 2020-12-15 01:43 ==
PROVIDERS: PCP Nurse Practitioner Family; Visit Provider Nurse Practitioner Family
DX: R92.8 Other abnormal and inconclusive findings on diagnostic imaging of breast (principal)
CPT/HCPCS: 77062; 77066; G0279

== ENCOUNTER 2021-04-26 09:35 | Outpatient (REF) | payer MEDICARE, SELFPAY ==
[2021-04-26 16:05] LABS: HCT 41.5 % (36.0-46.0); HGB 13.4 g/dL (11.2-15.7); MCHC 32.3 % (32.0-36.0); Platelet Count 246 10^3/uL (130-400); RBC 4.19 10^6/uL (3.93-5.22); RDW 11.9 % (11.7-14.6); RDW-SD 43.6 fL; WBC 4.12 10^3/uL (4.4-10.8)
[2021-04-26 23:53] LABS: Anion Gap 8.8 mmol/L (3-11); BUN 13 mg/dL (7-18); CO2 30.2 mmol/L (21.0-32.0); CREATININE 1.2 mg/dL (0.55-1.02); Calcium 9.3 mg/dL (8.5-10.1); Calculated LDL 70 mg/dL (<100); Chloride 104 mmol/L (98-107); Cholesterol 157 mg/dL (<200); Estimated GFR 43.91 (mL/min/1.73m2); Glucose 124 mg/dL (74-106); HDL Cholesterol 46 mg/dL (40-60); Potassium 4.5 mmol/L (3.5-5.1); Sodium 143 mmol/L (136-145); Triglyceride 205 mg/dL (<150)
== END 2021-04-26 09:36 | disposition home or self-care (01) ==
LOC: NCHCN 09:35
PROVIDERS: PCP Nurse Practitioner Family; Visit Provider Nurse Practitioner Family
DX: E78.5 Hyperlipidemia, unspecified (principal); I10 Essential (primary) hypertension
CPT/HCPCS: 80048; 80061; 85027

== ENCOUNTER 2021-06-03 01:02 | Outpatient (CLI) | payer MEDICARE, SELFPAY ==
--- NOTE | 2021-06-03 07:59 | DI.MRI_ITS ---
Exam(s) MR LUMBAR SPINE WO/W EXAM: MR LUMBAR SPINE WO/W CLINICAL HISTORY: bilateral leg pain (lateral thighs and calves),POST LAMINECTOMY SYNDROME,. TECHNIQUE: Multiplanar multisequence MRI of the Lumbar Spine was performed. CONTRAST MATERIAL: IV Contrast: 17 mL of Dotarem contrast administered. COMPARISON: MR MRI - LUMBAR SPINE WO CONTRAST from 01/21/2018 FINDINGS: Bones: The last intervertebral disc space is designated the L5/S1 level for the numbering purpose of this examination. The vertebral body heights are well maintained. There is stable grade 1 anterolist hesis of L5 on S1. There is a left convex scoliosis. The signal characteristics are unremarkable. T here is again seen posterior spinal surgery from L3 through S1. Cord: The conus tip ends at the L1 level. It is of normal size and signal intensity. T12-L1: No disc herniations or bulges are present. No central spinal canal or neural foraminal stenos is. L1-2: No disc herniations or bulges are present. No central spinal canal or right neural foraminal st enosis. Stable moderate left neural foraminal stenosis is present. L2-3: No disc herniations or bulges are present. No significant central spinal canal stenosis. There is moderate left and moderately severe right neural foraminal stenosis. L3-4: No significant central spinal canal stenosis. Stable bilateral neural foraminal stenosis is pr esent. L4-5: No disc herniations or bulges are present. No significant central spinal canal stenosis.There d oes appear to be mild right neural foraminal narrowing. No significant left neural foraminal stenosi s. L5-S1: No disc herniations or bulges are present. No central spinal canal stenosis.There is mild narr owing of the left neural foramen. No significant right neural foraminal stenosis. Soft tissues: The visualized SI joints and sacrum are well maintained. The paraspinal soft tissues ar e unremarkable. There is no evidence of suspicious enhancement. IMPRESSION: 1. Status post surgery at the from L3 through S1. 2. Multilevel degenerative changes in the lumbar spine resulting in central spinal canal neural connie inal stenosis as described above. Overall there does not appear to be significant change compared to the prior examination from 01/21/2018. DATA REPOSITORY:
[2021-06-03] MEDS: Normal Saline Flush 10 ML SYR IVP (13:24)
[2021-06-03] MEDS: Gadoterate meglumine 20 ML VIAL 17 ML IVP (13:25)
== END 2021-06-03 01:22 ==
PROVIDERS: PCP Nurse Practitioner Family; Visit Provider Preventive Medicine Occupational Medicine
DX: M96.1 Postlaminectomy syndrome, not elsewhere classified (principal); M79.604 Pain in right leg; M79.605 Pain in left leg; M99.83 Other biomechanical lesions of lumbar region
CPT/HCPCS: 72158

== ENCOUNTER 2021-06-24 00:19 | Outpatient (CLI) | payer MEDICARE, SELFPAY ==
--- NOTE | 2021-06-24 10:30 | DI.MRI_ITS ---
Exam(s) MR BRAIN WO EXAM: MR BRAIN WO CLINICAL HISTORY: NEW DAILY PERSISTENT [place], G44.52 TECHNIQUE: Multiplanar multisequence MRI of the brain was performed. COMPARISON: No exams were available for comparison FINDINGS: VENTRICLES AND EXTRA AXIAL SPACES: Normal in size and morphology for the patient's age. MIDLINE SHIFT: None. CEREBRAL PARENCHYMA: No focus of restricted diffusion to suggest acute infarct. No space-occupying le mindy identified. There are several areas of hyperintense signal seen on the T2 and FLAIR images in th e white matter most consistent with chronic microvascular ischemic disease. HEMORRHAGE: There is a single focus of hypointense signal on the gradient images in the right tempora l lobe. BRAINSTEM/CEREBELLUM: Normal. CALVARIUM: Normal. VISUALIZED PARANASAL SINUSES/MASTOIDS:Clear. [place]: Normal flow void. PITUITARY GLAND: Unremarkable. OTHER FINDINGS: None. IMPRESSION: 1. Age-appropriate cerebral atrophy and small vessel ischemic disease. 2. No evidence of an acute territorial infarct. 3. Single focus of hypointense signal on the gradient images in the right temporal lobe. Differentia l considerations include hypertensive microhemorrhage, cerebral amyloid disease, vascular malformatio n or prior trauma. DATA REPOSITORY:
== END 2021-06-24 00:39 ==
PROVIDERS: PCP Nurse Practitioner Family; Visit Provider Nurse Practitioner Family
DX: G44.52 New daily persistent headache (NDPH) (principal); R93.0 Abnormal findings on diagnostic imaging of skull and head, not elsewhere classified
CPT/HCPCS: 70551

== ENCOUNTER 2021-07-07 08:11 | Outpatient (CLI) | payer MEDICARE, SELFPAY ==
--- NOTE | 2021-07-07 06:00 | DI.RAD_ITS ---
Exam(s) XR PAIN CLINIC LUMBAR SP 2V EXAM: XR PAIN CLINIC LUMBAR SP 2V CLINICAL HISTORY: Dx: Lumbar Radiculopathy TECHNIQUE: 2D and realtime digital imaging was performed. Radiologist not present. CONTRAST MATERIAL: None. COMPARISON: No exams were available for comparison FINDINGS: Fluoroscopy was provided for pain management therapy. Please refer to procedure report or details. Time= 22.7 seconds Cumulative dose: Ka,r=11.86 mGy IMPRESSION: RADIATION DOSE DELIVERED:
[2021-07-07 08:26] VITALS: BP 160/86; PULSE 72; RESP 16; TEMP 36.3; O2SAT 99
--- NOTE | 2021-07-07 09:08 | PDOC.PAIN ---
Pain Clinic Procedure Note Procedure Note Procedure Note: CANDAL EPIDURAL STEROID WITH CATHETER INJECTION PROCEDURE NOTE COMMENTS: I evaluated her in the clinic on 05/18/21. She has substantial lumbar spine surgery including multilevel fusion. Pre-procedure pain VAS = 4/10. DX: Lumbosacral radiculopathy Negar Lowe has been referred to the [facility] Management [facility] for lumbar epidural steroid injection. Patient was greeted by the nurse who verified patients name and . Patient was then taken to the fluoroscopy suite. Patient was interviewed and the medical record reviewed. There were no medical, pharmacologic, radiographic, or other structural contraindications to attempting fluoroscopically guided lumbar epidural steroid injection. Risks and expected side effects as well as potential benefits of the procedure were reviewed and voiced concerns addressed. The patient consent form was signed and witnessed. Standard time-out procedure was performed. Patient was placed in the prone position on the fluoroscopy table and automated blood pressure cuff and pulse oximeter applied. The skin entry point for entering/approaching the epidural space at the sacral hiatus and marked. Following thorough chlorhexadine preparation of the skin and draping and 1% lidocaine infiltration of the skin entry point and subcutaneous tissues, a 17 gauge Touhy needle was placed under fluoroscopic guidance and with loss of resistance technique into the epidural space. Needle tip placement and depth were aided and confirmed by fluoroscopy. There was no paresthesia or return of blood or CSF through the needle. An Arrow cath was thread to the L5 and 1 cc's of Omnipaque 240 was injected with clear epidural spread confirmed with fluoroscopy. 80mg depomedrol was injected. There was not any unusual discomfort expressed. Vital signs were stable throughout the procedure and were as recorded in nursing records. Follow up plans and appointments were discussed.Post procedure instruction was given as documented in nursing records and having met discharge criteria and was discharged from the Pain Management Center. COMMENTS: If she gets good relief from this procedure, she can have it completed up to 3 times per 12 months. Her post-operative pain VAS was 0/10. Murali Altamirano DO, MPH [facility]-Pain Management [facility] for Pain Management
[2021-07-07 09:12] VITALS: BP 153/80; PULSE 67; RESP 19; O2SAT 99
[2021-07-07] MEDS: Omnipaque 240 MG/ML 50 ML BTL IJ (09:12)
[2021-07-07] MEDS: methylPREDNISolone ACETATE 80 MG/ML VIAL IJ (09:12)
== END 2021-07-07 08:12 | disposition home or self-care (01) ==
LOC: PC 08:11
PROVIDERS: PCP Nurse Practitioner Family; Visit Provider Preventive Medicine Occupational Medicine
DX: M54.17 Radiculopathy, lumbosacral region (principal)
CPT/HCPCS: 62323; 72100; J1040; Q9967

== ENCOUNTER → 2021-09-29 08:51 | Outpatient (BNVA) | payer MEDICARE, SELFPAY | PROVIDERS: PCP Nurse Practitioner Family; Referring Provider Nurse Practitioner Family; Visit Provider Nurse Practitioner Adult Health | DX: R51.9 Headache, unspecified (principal); I12.9 Hypertensive chronic kidney disease with stage 1 through stage 4 chronic kidney disease, or unspecified chronic kidney disease; N18.30 Chronic kidney disease, stage 3 unspecified | CPT/HCPCS: 99204; 99214 ==

== ENCOUNTER 2021-10-26 08:53 | Outpatient (CLI) | payer MEDICARE, SELFPAY ==
--- NOTE | 2021-10-26 06:00 | DI.RAD_ITS ---
Exam(s) XR PAIN CLINIC LUMBAR SP 2V EXAM: XR PAIN CLINIC LUMBAR SP 2V CLINICAL HISTORY: Dx: Lumbar Spondylosis. TECHNIQUE: Fluoroscopy was provided for the referring physician for guidance with performing pain cl inic injection procedure. COMPARISON: No exams were available for comparison FINDINGS: Please see procedure note for details. Fluoro time: 53.5 seconds RADIATION DOSE DELIVERED: hammad Hart= 15.88 mGy
[2021-10-26 09:09] VITALS: BP 134/76; PULSE 77; RESP 20; TEMP 37; O2SAT 97
[2021-10-26 09:58] VITALS: BP 129/68; PULSE 74; RESP 22; O2SAT 96
[2021-10-26] MEDS: Bupivacaine 0.5% Pres-Free 10 ML VIAL IJ (10:05)
--- NOTE | 2021-11-01 06:07 | PDOC.PAIN ---
Pain Clinic Procedure Note Procedure Note Procedure Note: Lumbar/Sacral Medial Branch Blocks Negar Lowe has been referred to the Pain Management Center for lumbar/sacral medial branch blocks. COMMENTS: She was previously evaluated in the clinic. No contrast is being used secondary to a global shortage. Her pre-procedure pain VAS was 5/10. Dx: Lumbosacral spondylosis without myelopathy. Patient was interviewed and the medical record reviewed. There were no medical, pharmacologic, radiographic or other structural contraindications to attempting fluoroscopically guided local anesthetic lumbar/sacral medial branch blocks. Risks and expected side effects as well as potential benefit of the procedure were reviewed and voiced concerns addressed. The printed consent form was signed and witnessed. Standard time-out procedure was performed. Patient was placed in the prone position on the fluoroscopy table and automated blood pressure cuff and pulse oximeter applied. The skin entry points for approaching the anatomic target points of the segmental medial branches of bilateral L1-L3 were identified with fluoroscopy and marked. Following thorough Chlorhexadine preparation of the skin and draping and 1% lidocaine infiltration of the skin entry points and subcutaneous tissues, a 25 gauge 3.5 spinal needle was placed under fluoroscopic guidance down on to the target point for each respective segmental medial branch.Position was confirmed in A/P, oblique and lateral views. At this point I injected 0.5ml of 0.5% Bupivacaine at each segmental sensory nerve.. Vital signs were stable throughout the procedure and were as recorded in the docflowsheet by the nursing staff. Follow up plans and appointments were discussed and was instructed to keep careful note of how the usual pain was modified by these injections. Specifically was asked to keep a pain diary for the next 24 hours using a numeric pain scale of 0-10 and report these results at the follow-up visit. Post procedure instruction was given as documented in the nursing documentation and having met discharge criteria. Patient was discharged from the Pain Management Center. Based on the medial branches blocked today, if the patient has adequate relief and we are able to proceed to radiofrequency ablation, the treatment should result in the denervation of the bilateral L2-L3 and L3-L4 FACET JOINTS. We would expect to denervate a total of 4 facets during the radiofrequency ablation. COMMENTS: Post-procedure pain VAS was 1/10. Murali Altamirano DO, MPH [facility]-Pain Management [facility]-Center for Pain Management CC: Byron Gibson
== END 2021-10-26 08:54 | disposition home or self-care (01) ==
LOC: PC 08:54
PROVIDERS: PCP Nurse Practitioner Family; Visit Provider Preventive Medicine Occupational Medicine
DX: M47.817 Spondylosis without myelopathy or radiculopathy, lumbosacral region (principal)
CPT/HCPCS: 64493; 64494; 72100

== ENCOUNTER 2021-11-07 10:23 | Outpatient (REF) | payer MEDICARE, SELFPAY ==
[2021-11-07 16:51] LABS: HGB 13.5 g/dL (11.2-15.7); MCH 31.8 pg (27.0-33.0); MCHC 32.1 % (32.0-36.0); MCV 99 fL (80-95); MPV 9.9 fL (8.0-11.0); Platelet Count 243 10^3/uL (130-400); RBC 4.24 10^6/uL (3.93-5.22); RDW 12.5 % (11.7-14.6); RDW-SD 45.5 fL; WBC 4.31 10^3/uL (4.4-10.8)
[2021-11-07 17:05] LABS: Hemoglobin A1C 5.8 % (<5.7)
[2021-11-07 17:31] LABS: ALT 35 U/L (14-59); AST 25 U/L (15-37); Albumin 4.4 g/dL (3.4-5.0); Alkaline Phosphatase 87 U/L (46-116); Anion Gap 9.2 mmol/L (3-11); BUN 14 mg/dL (7-18); Bilirubin, Total 0.7 mg/dL (0.2-1.0); CO2 29.8 mmol/L (21.0-32.0); Chloride 101 mmol/L (98-107); Ferritin 162 ng/mL (8-252); Glucose 112 mg/dL (74-106); Potassium 4.4 mmol/L (3.5-5.1); Sodium 140 mmol/L (136-145); TSH 2.81 uIU/mL (0.36-3.74); Total Protein 7.9 g/dL (6.4-8.2)
[2021-11-07 17:40] LABS: Vitamin D 25 Total 59.5 ng/mL (30-100)
[2021-11-07 18:00] LABS: FREE T4 0.92 ng/dL (0.76-1.46)
[2021-11-08 17:51] LABS: T3,Free 3.4 pg/mL (2.8-5.3)
== END 2021-11-07 10:24 | disposition home or self-care (01) ==
LOC: NCHCN 10:23
PROVIDERS: PCP Nurse Practitioner Family; Visit Provider Nurse Practitioner Family
DX: R73.03 Prediabetes (principal); R53.83 Other fatigue; I10 Essential (primary) hypertension
CPT/HCPCS: 80053; 82306; 85027; 82728; 83036; 84439; 84443; 84481

== ENCOUNTER → 2021-11-21 00:36 | Outpatient (CLI) | payer MEDICARE, SELFPAY ==
--- NOTE | 2021-11-21 08:00 | ETT_ITS ---
APPROVED REPORT Exam: Exercise Treadmill Patient Location: Out-Patient Room/Bed: Stress Nurse: Lo Arellano RN Ordering Provider:RODRIGO SIBLEY, Contact Number: [phone] BMI: 31.06 Baseline Rhythm: Sinus Rhythm Indications: Intermittent chest pain Medical History Medical History: Pre DM, HTN, HLD, GERD, asthma, balance issues, depression, glaucome, stake 3 CKD, r ight shoulder injuries Cardiac Medications: Simvastatin, omeprazole, metoprolol tartrate, gabapentin, furosemide, aspirin, a lbuterol sulfate, flovent HFA Allergies: Tramadol Cardiac Risk Factors: Family history, HTN, HLD, pre DM, asthma Previous Cardiac Procedures: None Pretest Chest Pain Characteristics: None Exercise History: Sedentary Physical Disabilities: None Lung Sounds: Clear, diminished bilaterally Heart Sounds: S1/S2 Stress Test Details Test: Exercise stress testing was performed using a George protocol. Rest Stress HR Resting HR Supine: 64 bpm Max Heart Rate (APMHR): 146 bpm Resting HR Standin bpm Target HR (85% APMHR): 124 bpm Max HR Achieved: 138 bpm % of APMHR: 94 Recovery HR: 82 bpm HR response to stress: Normal HR response to stress BP Resting BP Supine: 172/84 mmHg Resting BP Standin/88 mmHg Max BP: 196/76 mmHg Recovery BP: 144/80 mmHg BP response to stress: Normal blood pressure response to stress. ECG Resting ECG: Sinus Rhythm Ectopy: None Stress ECG: Sinus Tachycardia ST Change: None Arrhythmia: Rare PVC Recovery ECG: Sinus Rhythm Recovery ST Change: None Recovery Arrhythmia: None Clinical Reason for Termination: Fatigue Stress Symptoms: Dyspnea, Fatigue Exercise duration: 6 min35 sec Highest Stage Reached: Stage 3: 3.4 mph at 14% grade. Exercise capacity: 7.96 METs Chambers Treadmill Score: 2.4 Rate Pressure Product: [id number] Stress ECG Conclusion 1. Resting electrocardiogram showed poor R wave progression 2. Patient exercised on the George protocol and completed a workload of 7.96 METS, limited by fatigue 3. Normal heart rate and blood pressure response to exercise. The patient achieved 94% of predicted heart rate for age 4. Electrocardiographic portion of the test was negative for myocardial ischemia 5. There were no significant dysrhythmias 6. Patient described chest pain in recovery, not with exercise Chambers Treadmill Score is 2.4 which is Moderate risk. Stress Test Summary STAGE Time (mins) Speed (mph) Grade (%) HR BP SYMPTOMS METS Supine 64 172/84 Standing 73 170/88 1 3 1.7 10 129 164/86 4.6 2 6 2.5 12 133 178/90 2 PVC's 7 1 min recovery 120 196/76 Chest pain 3/10 3 min recovery 90 160/80 Chest Pain 1/10 6 min recovery 82 144/80 Chest pain 1/10 Patient remained asymptomatic throughout test. During recovery she reported chest pain ranging from 1 -3/10. Pain resolved while patient was supine but returned to 3/10 upon sitting up. Chest pain resolv ed prior to patient leaving stress lab.
== END ==
PROVIDERS: PCP Nurse Practitioner Family; Visit Provider Nurse Practitioner Family
DX: R07.89 Other chest pain (principal)
CPT/HCPCS: 93016; 93018; 93017

== ENCOUNTER 2021-11-28 04:40 | Outpatient (RCR) | payer MEDICARE, SELFPAY ==
--- NOTE | 2021-11-28 11:00 | HOLTER_ITS ---
APPROVED REPORT Conclusion This is a 48-hour Holter monitor ordered for chest pain Predominant rhythm was sinus with an average heart rate of 70. Minimum was 58, maximum 105 There were very rare atrial and ventricular ectopic beats There was no atrial fibrillation, no high-grade AV block, no pauses greater than 3 seconds Episode labeled ventricular tachycardia was artifact. There was no ventricular tachycardia No patient symptoms were reported
== END 2021-12-15 23:59 | disposition home or self-care (01) ==
LOC: RT 04:40
PROVIDERS: PCP Nurse Practitioner Family; Visit Provider Nurse Practitioner Family
DX: R07.9 Chest pain, unspecified (principal); R90.89 Other abnormal findings on diagnostic imaging of central nervous system
CPT/HCPCS: 93227; 93225; 93226

== ENCOUNTER → 2021-12-27 01:34 | Outpatient (CLI) | payer MEDICARE, SELFPAY ==
--- NOTE | 2021-12-27 | DI.MAMMO_ITS ---
Exam(s) MAMMO SCREENING EXAM: MAMMO SCREENING CLINICAL HISTORY: SCREENING MAMMO Z12.39 TECHNIQUE: Bilateral full field digital CC and MLO mammographic images were obtained with 3D tomosyn thesis and utilizing computer aided detection (CAD). COMPARISON: Available for comparison. FINDINGS: Masses/Architectural Distortion: None seen. Microcalcifications: No suspicious pleomorphic-type are seen. Skin Thickening/Nipple Retraction: None. IMPRESSION: 1. No significant interval change with no specific features of malignancy noted. 2. Unless there is more urgent need, screening mammography is recommended, as per [employer] guidelines. BI-RADS Category 1 - Negative Breast Density - Category B - Scattered areas of fibroglandular density Breast density category C or D implies that the patient has dense breast tissue. Dense breast tissue is very common and is not abnormal but dense breast tissue can make it harder to find cancer on a ma mmogram. Also, dense breast tissue may increase their breast cancer risk. This information about the result of the mammogram report was provided to the patient to raise their awareness. Use this report when you speak with the patient about their risks for breast cancer, which includes their family hist ory. At that time, you may recommend for more screening tests (Ultrasound or MRI) as they might be us eful based on their risk. A negative radiographic report should not delay biopsy if a dominant or clinically suspicious mass is present. Up to ten percent of cancers are not identified on mammography. A negative report may reinforce clinical impression. Adenosis and dense breasts may obscure an underlying neoplasm. False positive reports average 6 to 10%. Patient will receive a letter notifying them of these results.
--- NOTE | 2021-12-27 10:32 | DI.US_ITS ---
APPROVED REPORT EXAM: Comprehensive 2D, Doppler, and color-flow Echocardiogram Patient Location: Out-Patient Under Water Assistant: Talia Hope RDCS (AE) Indications: Chest pain Other Information Study Quality: Adequate Conclusion Normal left ventricular wall thickness and chamber size. Estimated ejection fraction is 55 to 60%. Wall motion is normal Normal right ventricular size and systolic function Both atria are normal in size Structurally normal aortic valve without stenosis or regurgitation Mitral annular calcification. Trace mitral regurgitation Normal tricuspid valve with trace to mild regurgitation. Estimated right ventricular systolic pressu re is normal Dilated ascending aorta measuring 3.96 cm Wall motion Left Ventricle The left ventricle is normal size. The left ventricular systolic function is normal. The left ventric ular ejection fraction is within the normal range. There is normal left ventricular wall thickness. T here is normal LV segmental wall motion. There is no ventricular septal defect visualized. LVEF is 58 %. Right Ventricle The right ventricle is normal size. The right ventricular systolic function is normal. The RVSP is 17 .2mmHg. Atria The left atrium size is normal. The right atrium size is normal. The interatrial septum is intact wit h no evidence for an atrial septal defect. Aortic Valve The aortic valve is normal in structure. Aortic valve is trileaflet. There is no aortic valvular sten osis. Trace aortic regurgitation. Mitral Valve Moderate mitral annular calcification. No evidence of mitral valve stenosis. Trace mitral regurgitati on. Tricuspid Valve The tricuspid valve is normal in structure. There is no tricuspid valve stenosis. Trace to mild tricu spid regurgitation. Pulmonic Valve The pulmonary valve is normal in structure. There is no pulmonic valvular stenosis. Trace pulmonic re gurgitation. Great Vessels The aortic root is normal in size. The ascending aorta is moderately dilated. Aortic arch is normal i n caliber. IVC is normal in size and collapses >50% with inspiration. Pericardium There is no pericardial effusion. 2D Dimensions IVSD d PLAX 1.02 cm F: 0.6-1.0 LV Vol A2C d MOD 86.0 mL LVPW d PLAX 1.02 cm F: 0.6 - 1.0 LV Vol A4C d MOD 75.1 mL LVID d PLAX 3.88 cm F: 3.8 - 5.2 LA vol/ BSA A2C s A-L 18.5 mL/m2 LVDs 2.65 cm F: 2.2 - 3.5 LA vol/ BSA A4C s A-L 19.4 mL/m2 Ao Root d 2.99 cm F: 2.7 - 3.3 LA Vol/ BSA Biplane s A-L 19.7 mL/m2 RA Area A4C 13.13 cm2 LA Area A4C s MOD 14.14 cm2 RA Vol/ BSA A4C s A-L 15.8 mL/m2 LA Area A2C s MOD 14.35 cm2 Ao Asc Diam d 3.96 cm F: 2.3 - 3.1 LV EF A4C MOD 56.3 % LV EF Teichholz 59.1 % LV EF A2C MOD 58.5 % LVEF (Zarate's) 54.77 % F: 54 - 74 LV EF Biplane MOD 54.8 % LV Volume 63.21 mL F: 46 - 106 SV 45.11 mL LV Volume Index 33.80 mL/m2 F: 29 - 61 SV Index 24.12 mL/m2 LV Vol Biplane MOD 82.4 mL FS 30.80 % M-Mode TAPSE 1.57 cm (M/F) >1.7 LV Diastology MV E' medial 0.044 (>0.07 m/s) E/A Ratio 0.7 LV E/e MED 16.65 (<14) MV E Vmax 0.73 (0.4-1.3 m/s) MV E' lateral 0.064 (>0.1 m/s) MV A Vmax 1.10 (0.4-1.3 m/s) LV E/e LAT 11.50 (<14) MV E/A Ratio 0.66 MV E/E' medial 16.67 MV E/E' lateral 11.54 Aortic Valve LVOT Area 2.88 cm2 AoV Area Vmax 2.12 cm2 LVOT Vmax 1.01 m/s AoV Area/ BSA (Vmax) 1.13 cm2/m2 LVOT Mean Jonathan. 0.67 m/s LIZBETH Mean Jonathan. 2.02 cm2 LVOT Peak Grad 4.1 mmHg LIZBETH Mean Jonathan. Index 1.08 cm2/m2 LVOT Mean Grad 2.1 mmHg AR DT 2776 msec LVOT VTI 0.220 m AR PHT 805 msec LVOT Diam s 1.90 cm AoV Vmax 1.38 m/s Velocity Ratio 0.73 AoV Mean Jonathan. 0.96 m/s AoV Peak Grad 7.6 mmHg LVOT SV 63.24 mL AoV Mean Grad 4.1 mmHg AoV VTI 0.260 m AoV Area VTI 2.43 cm2 AoV Area/ BSA (VTI) 1.30 cm/m2 Mitral Valve MV DT 287 (160-240 msec) MV PHT 83 msec MV Area PHT 2.65 cm2 MV VTI 0.396 m MV Area VTI 1.60 (4.0-6.0 cm2) Pulmonary Valve PV Vmax 0.96 (0.5-1.5 m/s) RVOT Peak Gr. 1.86 mmHg PV Peak Grad 3.7 mmHg RVOT Mean Gr. 0.85 mmHg PV Mean Grad 1.8 mmHg RVOT VTI 0.148 m PV VTI 0.177 m RVOT Vmax 0.68 m/s Tricuspid Valve TR Peak Grad 14.2 mmHg TR Vmax 1.89 m/s RA Pressure 3.00 mmHg RVSP (TR) 17.2 mmHg
== END ==
PROVIDERS: PCP Nurse Practitioner Family; Visit Provider Nurse Practitioner Family
DX: R07.89 Other chest pain (principal)
CPT/HCPCS: 77063; 77067; 93306

== ENCOUNTER 2022-02-16 11:16 | Outpatient (CLI) | payer MEDICARE, SELFPAY ==
--- NOTE | 2022-02-16 06:00 | DI.RAD_ITS ---
Exam(s) XR PAIN CLINIC LUMBAR SP 2V EXAM: XR PAIN CLINIC LUMBAR SP 2V CLINICAL HISTORY: Dx: Lumbar Spondylosis TECHNIQUE: 2D and realtime digital imaging was performed. Radiologist not present. CONTRAST MATERIAL: None. COMPARISON: No exams were available for comparison FINDINGS: Fluoroscopy was provided for pain management therapy. Please refer to procedure report or details. Cumulative dose: Ka,r=23.79 mGy IMPRESSION: RADIATION DOSE DELIVERED:
[2022-02-16 11:37] VITALS: BP 160/83; PULSE 74; RESP 20; TEMP 36; O2SAT 99
--- NOTE | 2022-02-16 12:12 | PDOC.PAIN_ITS ---
Pain Clinic Procedure Note Procedure Note Procedure Note: PROCEDURE NOTE LUMBAR MEDIAL BRANCH DIAGNOSTIC BLOCKS Date of Service: February 16, 2022 Patient: Negar Lowe Provider: Murali Altamirano DO, MPH Diagnosis: Lumbosacral Spondylosis without Myelopathy Post-operative diagnosis: Same Pre-procedure pain: VAS= 8/10 Pre-procedure Note History and Exam: Patient demonstrates today moderate to severe non- radicular back pain without neurologic deficit aggravated by hyperextension Yes Back pain greater than leg pain Yes Patient today has tenderness over the suspected joint(s) Yes History of post-traumatic injury No Hypertrophic arthropathy NO Back pain associated with suspected motion segment instability or Hypermobility or pseudoarthrosis No Pre-testing pain score (VAS): 7/10 Previous medial branch block testing?: YES - 10/26/21 with good relief Today's Operative Note Negar Lowe was greeted by the nurse who verified the patients name and . Patient was then taken to the fluoroscopy suite. Negar was interviewed and the medical record was reviewed. There were no medical contraindications to performing the bilateral L1-L3 lumbar medial branch nerve blocks. I first had a talk with the patient and discussed the potential risks, benefits, side effects, and alternatives of this procedure including but not limited to increased pain from the procedure, no pain relief, nerve damage, infection, and bleeding. She comprehended my conversation and accepts the risks and understands the goals of this diagnostic procedure. All questions and concerns from the patient were addressed. After I was comfortable that the patient was fully informed about this procedure, the printed consent form was signed. Standard time-out procedure was performed Negar was placed in the prone position on the fluoroscopy table and automated blood pressure cuff and pulse oximeter were applied. The anatomic target points of the segmental medial branches of bilateral L1-L3 were identified with fluoroscopy. Following thorough Chlorhexadine preparation of the skin and draping, a 25 gauge 3.5 spinal needle was placed under fluoroscopic guidance down on to the target point for each respective segmental medial branch. Position was confirmed in A/P, oblique and lateral views and 0.25 mls of Omnipaque-240 at each segmental nerve. At each level we injected 0.5ml of Lidocaine 2%. Negar 's vital signs were stable throughout the procedure and were as recorded in the docflowsheet by the nursing staff. Postoperatively, today patient demonstrates the following changes with hyperextension and with tenderness over the suspected joint(s). Provacative testing using the Aguilar's facet loading test Right side Left side Directly before the block VAS (0-10) = 7/10 VAS (0-10) = 7/10 5 minutes after the block VAS (0-10) = 2/10 VAS (0-10) = 2/10 Percentage relief obtained with this diagnostic block 80% 80% Any improved physical functioning directly after the blocks? Able to move around more easily Next, Negar was asked to record the percent pain relief and any changes in provocative maneuvers for the next 4 hours. She will report this information at the next business day to one of our nurses. Based on the medial branches blocked today, if the patient meets insurance criteria for radiofrequency, the treatment should result in the denervation of the bilateral L4-L5 and L5-S1 FACET JOINTS and facet joint nerves. We would expect to denervate a total of 4 facets during the radiofrequency ablation. Discharge plan:: She will call back with her 0-4 hour post-procedure pain scores. Post-procedure pain: VAS= 2/10. I personally performed the entire procedure. Murali Altamirano DO, MPH [facility]-subspecialty board certification in Pain Medicine [facility]-Center for Pain Management
[2022-02-16 12:28] VITALS: BP 141/80; PULSE 74; RESP 21; O2SAT 96
[2022-02-16] MEDS: Lidocaine 2% Pres-Free 5 ML VIAL IJ (12:37)
[2022-02-16] MEDS: Omnipaque 240 MG/ML 50 ML BTL IJ (12:37)
== END 2022-02-16 11:17 | disposition home or self-care (01) ==
LOC: PC 11:16
PROVIDERS: PCP Nurse Practitioner Family; Visit Provider Preventive Medicine Occupational Medicine
DX: M47.817 Spondylosis without myelopathy or radiculopathy, lumbosacral region (principal); M54.50 Low back pain, unspecified
CPT/HCPCS: 64493; 64494; 72100; Q9967

== ENCOUNTER 2022-03-29 12:32 | Outpatient (CLI) | payer MEDICARE, SELFPAY ==
[2022-03-29 12:42] VITALS: BP 156/88; PULSE 79; RESP 20; TEMP 36.9; O2SAT 97
[2022-03-29] MEDS: fentaNYL 100 MCG/2 ML VIAL IVP ×3 (13:12→13:26)
[2022-03-29] MEDS: Midazolam 2 MG/2 ML VIAL IVP (13:13)
[2022-03-29 13:49] VITALS: BP 141/64; PULSE 66; RESP 17; O2SAT 99
--- NOTE | 2022-03-29 13:51 | PDOC.PAIN_ITS ---
Pain Clinic Procedure Note Procedure Note Procedure Note: Bilateral Lumbar Radiofrequency with Coolief Machine PROCEDURE NOTE Date of Service: March 29, 2022 Patient: Negar Lowe Provider: Murali Altamirano DO, MPH Pre Operative Diagnosis: Lumbosacral Spondylosis without Myelopathy Post Operative Diagnosis: Same Post procedure pain; VAS= 5/10 PROCEDURE: Radiofrequency Ablation of medial branches - Bilateral L1, L2 and L3. Negar Lowe was brought into the fluoroscopy suite and positioned into the prone position on the fluoroscopy table and allowed to adjust to a position of comfort. A grounding pad was placed on the right thigh. The lumbar region was widely prepped with a chloraprep solution, allowed to air dry and draped in standard sterile surgical fashion. Local anesthesia was provided by 4 mL of 2% Lidocaine delivered with a 25g needle. A 17g 100 mm radiofrequency introducer needle was placed to the planned anatomic targets guided with intermittent fluoroscopy with a perpendicular approach to terminally place at the junction of the superior articular process and the transverse process of the bilateral L2, L3 and L4. The stylets were removed and radiofrequency probes with a 4mm active tip were then inserted. Needle tip position of the probes was verified in the AP, oblique, and lateral views. At each site, the medial branch nerve was stimulated at 2 Hz to a maximum 1-2 volts determined to finalize safe needle and electrode placement. The patient was awake and responsive during this portion of the procedure. Each target was anesthetized with 1-2 mL of 2% Lidocaine for anesthesia for lesioning and then each target was lesioned at 80 degrees Celsius for 2 minutes and 30 seconds. Tissue impedences were noted to be between 250 and 500 Ohms. Electrodes and needles were then removed and bandages placed over the needle placement sites, the patient then returned to the supine position on a stretcher and transported to the recovery room without hemodynamic, neurologic, or allergic reactions. Fluoroscopic images were printed for hard copy recording and digitally archived. POST PROCEDURE EVALUATION: IMPRESSION: 1. Summary of procedure. Medication given is documented in the MAR. 2. The patient will be contacted in 1-3 weeks 3. Estimated Blood Loss: <5 mls 4. Fluoroscopy time: Documented in the EMR. Follow up plans and appointments were discussed with the Negar . Post procedure instruction was given as documented in nursing documentation and stevens tricia met discharge criteria, Negar was discharged from the Pain Management Center. COMMENTS: No apparent complications. Post-procedure pain: VAS= 0/10. F/U with our office as needed. Murali Altamirano DO, MPH [facility]-Pain Management [facility]-Center for Pain Management
--- NOTE | 2022-03-29 13:53 | DI.RAD_ITS ---
Exam(s) XR PAIN CLINIC LUMBAR SP 2V EXAM: XR PAIN CLINIC LUMBAR SP 2V CLINICAL HISTORY: Dx: Lumbar Spondylosis TECHNIQUE: 2D and realtime digital imaging was performed. COMPARISON: No exams were available for comparison FINDINGS: C-arm fluoroscopy was utilized by Dr. Altamirano during reported radiofrequency ablation. Please see Dr. Resendiz ent's procedure note. IMPRESSION: RADIATION DOSE DELIVERED: Ka,r=23.7 mGy Total DLP
[2022-03-29] MEDS: methylPREDNISolone ACETATE 40 MG/ML VIAL IJ (14:15)
[2022-03-29] MEDS: Lidocaine 2% Pres-Free 5 ML VIAL (14:15)
[2022-03-29] MEDS: Bupivacaine 0.5% Pres-Free 10 ML VIAL IJ (14:16)
== END 2022-03-29 12:33 | disposition home or self-care (01) ==
LOC: PC 12:32
PROVIDERS: Visit Provider Preventive Medicine Occupational Medicine
DX: M47.817 Spondylosis without myelopathy or radiculopathy, lumbosacral region (principal); M54.50 Low back pain, unspecified
CPT/HCPCS: 64636; 64635; 72100; J1030; J2250; J3010

== ENCOUNTER 2022-11-17 18:12 | Outpatient (REF) | payer MEDICARE, SELFPAY ==
[2022-11-17 19:09] LABS: Hemoglobin A1C 5.8 % (<5.7)
[2022-11-17 19:15] LABS: ALT 34 U/L (14-59); AST 27 U/L (15-37); Albumin 4.3 g/dL (3.4-5.0); Alkaline Phosphatase 82 U/L (46-116); BUN 10 mg/dL (7-18); Bilirubin, Total 0.6 mg/dL (0.2-1.0); Calcium 9.3 mg/dL (8.5-10.1); Calculated LDL 51 mg/dL (<100); Chloride 104 mmol/L (98-107); Cholesterol 143 mg/dL (<200); Estimated GFR 58.75 (mL/min/1.73m2); Glucose 102 mg/dL (74-106); HDL Cholesterol 46 mg/dL (40-60); Potassium 4.4 mmol/L (3.5-5.1); Sodium 143 mmol/L (136-145); Total Protein 8.2 g/dL (6.4-8.2); Triglyceride 234 mg/dL (<150)
== END 2022-11-17 18:13 | disposition home or self-care (01) ==
LOC: NCHCN 18:12
PROVIDERS: Visit Provider Nurse Practitioner Family
DX: I10 Essential (primary) hypertension (principal); R73.03 Prediabetes; N18.30 Chronic kidney disease, stage 3 unspecified; E78.5 Hyperlipidemia, unspecified
CPT/HCPCS: 80053; 80061; 83036

== ENCOUNTER 2022-11-29 02:27 | Outpatient (CLI) | payer MEDICARE, SELFPAY ==
--- NOTE | 2022-11-29 11:01 | DI.RAD_ITS ---
Exam(s) XR CHEST 2V PA LATERAL EXAM: XR CHEST 2V PA LATERAL CLINICAL HISTORY: COUGH WITH CHEST PAIN, R05.8. TECHNIQUE: 2D digital imaging was performed. COMPARISON: No exams were available for comparison FINDINGS: 2 views: Heart size is normal. The mediastinum is not widened. Lungs are clear. No infiltrates nor pleural effusions. Fusion hardware is noted in the lumbar spine, only partially included in the field of view of study. There are no compression fractures of thoracic vertebrae evident. IMPRESSION: No acute pulmonary findings. Other findings as above. DATA REPOSITORY: RADIATION DOSE DELIVERED:
== END 2022-11-29 02:47 ==
PROVIDERS: Visit Provider Nurse Practitioner Family
DX: R05.8 Other specified cough (principal)
CPT/HCPCS: 71046

== ENCOUNTER 2023-02-16 14:00 | Outpatient (REF) | payer MEDICARE, SELFPAY ==
[2023-02-16 19:08] LABS: Abs Immature Grans 0.01 10^3/uL (0.0-0.06); Absolute Basophil Count 0.05 10^3/uL (0.0-0.2); Absolute Eosinophil Count 0.12 10^3/uL (0.0-0.7); Absolute Lymphocyte Count 1.77 10^3/uL (1.2-3.4); Absolute Monocyte Count 0.59 10^3/uL (0.1-0.8); Eosinophils % 2.4; HCT 39.4 % (36.0-46.0); HGB 13.2 g/dL (11.2-15.7); Immature Grans % 0.2; Lymphocytes % 35.1; MCH 31.8 pg (27.0-33.0); MCHC 33.5 % (32.0-36.0); MCV 95 fL (80-95); MPV 9.5 fL (8.0-11.0); Monocytes % 11.7; Neutrophils % 49.6; Platelet Count 245 10^3/uL (130-400); RBC 4.15 10^6/uL (3.93-5.22); RDW 12.3 % (11.7-14.6); RDW-SD 42.9 fL; WBC 5.04 10^3/uL (4.4-10.8)
[2023-02-16 19:55] LABS: TSH (W/Ref FT4) 2.91 uIU/mL (0.36-3.74)
== END 2023-02-16 14:01 | disposition home or self-care (01) ==
LOC: NCHCN 14:00
PROVIDERS: PCP Nurse Practitioner Family; Visit Provider Nurse Practitioner Family
DX: R53.83 Other fatigue (principal)
CPT/HCPCS: 84443; 85025

== ENCOUNTER 2023-02-23 02:31 | Outpatient (CLI) | payer MEDICARE, SELFPAY ==
[2023-02-23] MEDS: Albuterol HFA 18 GM 200 PUFF INH IH (16:09)
[2023-02-23] MEDS: Inhaler, Assist Device 1 EACH MC (16:09)
--- NOTE | 2023-02-27 07:28 | W.PFT ---
Date of service: 02/23/23 Time of Service: 15:13 Pulmonary Function Test Result Indications: Cough Interpretation Spirometry: There is no airflow limitation. No significant bronchodilator response. Lung Volumes: Normal lung volumes Diffusion Capacity: Normal diffusion Airway Pressure: Normal airways resistance Impression Normal pulmonary function testing. Clinical Correlation therefore is recommended.
== END 2023-02-23 02:32 | disposition home or self-care (01) ==
LOC: RT 02:31
PROVIDERS: PCP Nurse Practitioner Family; Visit Provider Nurse Practitioner Family
DX: R05.9 Cough, unspecified (principal)
CPT/HCPCS: 94060; 94726; 94729

== ENCOUNTER 2023-11-08 12:09 | Outpatient (REF) | payer MEDICARE, SELFPAY ==
[2023-11-08 16:33] LABS: Hemoglobin A1C 6.3 % (<5.7)
[2023-11-08 16:50] LABS: ALT 34 U/L (14-59); AST 28 U/L (15-37); Albumin 4.2 g/dL (3.4-5.0); Alkaline Phosphatase 80 U/L (46-116); Anion Gap 8.1 mmol/L (3-11); BUN 14 mg/dL (7-18); Bilirubin, Total 0.7 mg/dL (0.2-1.0); CO2 28.9 mmol/L (21.0-32.0); CREATININE 1.1 mg/dL (0.55-1.02); Calcium 9.4 mg/dL (8.5-10.1); Calculated LDL 46 mg/dL (<100); Chloride 103 mmol/L (98-107); Cholesterol 129 mg/dL (<200); Estimated GFR 52.08 (mL/min/1.73m2); Glucose 105 mg/dL (74-106); HDL Cholesterol 50 mg/dL (40-60); Potassium 4.6 mmol/L (3.5-5.1); Sodium 140 mmol/L (136-145); Total Protein 7.7 g/dL (6.4-8.2); Triglyceride 167 mg/dL (<150)
== END 2023-11-08 12:10 | disposition home or self-care (01) ==
LOC: NCHCN 12:09
PROVIDERS: PCP Nurse Practitioner Family; Visit Provider Nurse Practitioner Family
DX: E78.5 Hyperlipidemia, unspecified (principal); R73.03 Prediabetes; I10 Essential (primary) hypertension
CPT/HCPCS: 80053; 80061; 83036

== ENCOUNTER → 2023-12-03 01:40 | Outpatient (CLI) | payer MEDICARE, SELFPAY ==
--- NOTE | 2023-12-03 | ETT_ITS ---
APPROVED REPORT Exam: Exercise Treadmill Patient Location: Out-Patient Room/Bed: Stress Nurse: Talisha Mehta RN Ordering Provider:ARTI MEDINA, Contact Number: [phone] BMI: 32.23 Baseline Rhythm: Sinus Rhythm Comment: Occasional PVC's Indications: Chest pain, Medical History Medical History: GERD, HLD, HTN, asthma, dyspnea, chest pain, prediabetes Cardiac Medications: Aspirin, flovent, lasix, gabapentin, lisinopril, metoprolol succinate, omeprazol e, simvastatin, ventolin Allergies: Tramadol Cardiac Risk Factors: Family hx, HTN, HLD, prediabetes, asthma, COPD Previous Cardiac Procedures: None Pretest Chest Pain Characteristics: None Exercise History: Indeterminate Physical Disabilities: None Lung Sounds: Clear to auscultation Heart Sounds: Regular Stress Test Details Test: Exercise stress testing was performed using a George protocol. Rest Stress HR Resting HR Supine: 75 bpm Max Heart Rate (APMHR): 144 bpm Resting HR Standin bpm Target HR (85% APMHR): 122 bpm Max HR Achieved: 141 bpm % of APMHR: 98 Recovery HR: 79 bpm HR response to stress: Normal HR response to stress BP Resting BP Supine: 124/82 mmHg Resting BP Standin/85 mmHg Max BP: 162/78 mmHg Recovery BP: 142/78 mmHg BP response to stress: Normal blood pressure response to stress. ECG Resting ECG: Sinus Rhythm Ectopy: Occasional PVC's Stress ECG: Sinus Tachycardia ST Change: No significant ST segment changes noted Arrhythmia: Occasional PVC's Recovery ECG: Sinus Rhythm Recovery ST Change: No significant ST segment changes noted Recovery Arrhythmia: Occasional PVC's Clinical Reason for Termination: Target HR Achieved, Mod SOB Stress Symptoms: Mod SOB Exercise duration: 06 min12 sec Highest Stage Reached: Stage 2: 2.5 mph at 12% grade. Exercise capacity: 7.34 METs Angina Score: None Chambers Treadmill Score: 5.5 Rate Pressure Product: [id number] Stress ECG Conclusion 1. Resting electrocardiogram showed poor R wave progression 2. Patient exercised on the George protocol and completed a workload of 7.34 METS 3. Normal heart rate and blood pressure response to exercise. The patient achieved 98% of predicted heart rate for age 4. There was no electrocardiographic evidence of myocardial ischemia 5. There were no significant dysrhythmias Chambers Treadmill Score is 5.5 which is Low risk. Stress Test Summary STAGE Time (mins) Speed (mph) Grade (%) HR BP SpO2 SYMPTOMS METS Supine 75 124/82 96 Standing 78 140/85 1 3 1.7 10 130 96 Mod SOB 4.5 2 6 2.5 12 140 Mod SOB 7 1 min recovery 100 160/68 98 Mod SOB 3 min recovery 88 162/78 98 6 min recovery 79 142/78 98 SOB resolved
== END ==
PROVIDERS: Visit Provider Nurse Practitioner Family
DX: R07.9 Chest pain, unspecified (principal)
CPT/HCPCS: 93016; 93018; 93017

== ENCOUNTER → 2023-12-04 09:18 | Outpatient (BNVA) | payer MEDICARE, SELFPAY | PROVIDERS: Visit Provider Student in an Organized Health Care Education/Training Program | DX: R05.3 Chronic cough (principal) | CPT/HCPCS: 99215 ==

== ENCOUNTER 2023-12-24 03:32 | Outpatient (CLI) | payer MEDICARE, SELFPAY ==
[2023-12-24] MEDS: Methacholine 100 MG VIAL IH (11:41)
[2023-12-24] MEDS: Albuterol HFA 18 GM 200 PUFF INH IH (11:41)
[2023-12-24] MEDS: Inhaler, Assist Device 1 EACH MC (11:42)
--- NOTE | 2023-12-25 14:56 | W.PFT ---
Date of service: 12/24/23 Time of Service: 09:57 Pulmonary Function Test Result Requesting Provider Sarah Giordano Indications: Cough Interpretation Spirometry: normal Impression Normal spirometry w/ no reversibility after albuterol. Normal flow volume loop. Clinical Correlation therefore is recommended.
== END 2023-12-24 03:33 | disposition home or self-care (01) ==
LOC: RT 03:33
PROVIDERS: PCP Nurse Practitioner Family; Visit Provider Student in an Organized Health Care Education/Training Program
DX: R05.3 Chronic cough (principal)
CPT/HCPCS: 00123; 94060; 94070; J7674

== ENCOUNTER → 2024-02-14 10:11 | Outpatient (BNVA) | payer MEDICARE, SELFPAY | PROVIDERS: PCP Nurse Practitioner Family; Visit Provider Physician Assistant Surgical | DX: R05.3 Chronic cough (principal) | CPT/HCPCS: 99214 ==

== ENCOUNTER 2024-03-05 12:36 | Outpatient (CLI) | payer MEDICARE, SELFPAY ==
--- NOTE | 2024-03-05 08:41 | DI.RAD_ITS ---
Exam(s) XR HIP RT COMPLETE AP PELVIS EXAM: XR HIP RT COMPLETE AP PELVIS CLINICAL HISTORY: Worsening right groin pain, R10.31. TECHNIQUE: 2D digital imaging was performed. Three views COMPARISON: No exams were available for comparison FINDINGS: BONES: No acute fracture is present. No bony destructive lesion is seen. Partially visualize hardwa re noted at lumbosacral junction. JOINTS: No dislocation present. Mild right hip joint space narrowing. Mild periarticular spurring. Left hip joint space is maintained. Minimal spurring at the acetabulum. Mild degenerative changes at the SI joints. SOFT TISSUE: Normal. IMPRESSION: Mild degenerative changes. DATA REPOSITORY: RADIATION DOSE DELIVERED:
== END 2024-03-05 12:56 ==
LOC: DI 12:37
PROVIDERS: PCP Nurse Practitioner Family; Visit Provider Preventive Medicine Occupational Medicine
DX: R10.31 Right lower quadrant pain (principal)
CPT/HCPCS: 73502

== ENCOUNTER 2024-04-08 00:55 | Outpatient (CLI) | payer MEDICARE, SELFPAY ==
--- NOTE | 2024-04-08 | DI.MRI_ITS ---
Exam(s) MR BRAIN WO EXAM: MR BRAIN WO CLINICAL HISTORY: DIZZINESS AND GIDDINESS , R42 TECHNIQUE: Multiplanar multisequence MRI of the brain was performed. COMPARISON: MR MR BRAIN WO from 06/24/2021 FINDINGS: CEREBRAL PARENCHYMA: There is no evidence of intracranial hemorrhage, mass effect, or shift of midline structures. There are no extra-axial fluid collections. Ventricles are not enlarged or shifted. There is no significant focal signal abnormality in the cerebellar hemispheres nor within the frank, m idbrain, and thalami. There are multiple foci of FLAIR bright signal abnormality in the periventricular white matter, these measuring up to 9 mm size and not associated with hemorrhage, surrounding edema nor restricted diffu mindy to suggest acute ischemic event. SWI imaging reveals no evidence of microhemorrhages in the brain. PITUITARY GLAND: No mass nor parasellar abnormality. No obvious abnormality in the cavernous sinuses. FLOW VOIDS: The expected flow void are noted. No evidence of obvious aneurysm nor obvious vascular ma lformation. PARANASAL SINUSES: The visualized paranasal sinuses appear unremarkable. No obvious finding ORBITS: No obvious findings. IMPRESSION: There are multiple foci of white matter signal abnormality consistent with chronic small-vessel white matter ischemic changes. These are not associated with hemorrhage, surrounding edema nor restricted diffusion to suggest recent ischemic event. Findings evident on today's study exhibits minimal cohen ge from prior MRI scan of June 2021. DATA REPOSITORY:
== END 2024-04-08 01:15 ==
LOC: DI 00:56
PROVIDERS: PCP Nurse Practitioner Family; Visit Provider Nurse Practitioner Family
DX: I67.82 Cerebral ischemia (principal)
CPT/HCPCS: 70551

== ENCOUNTER 2024-04-09 08:55 | Outpatient (CLI) | payer MEDICARE, SELFPAY ==
[2024-04-09] VITALS (15 sets, daily range): BP systolic 138–198; BP diastolic 75–105; PULSE 60–69; RESP 13–20; TEMP 36.1; O2SAT 92–100
[2024-04-09] MEDS: Midazolam 2 MG/2 ML VIAL IVP (10:45)
[2024-04-09] MEDS: fentaNYL 100 MCG/2 ML VIAL IVP ×2 (10:45→11:00)
--- NOTE | 2024-04-09 11:31 | DI.RAD_ITS ---
Exam(s) XR PAIN CLINIC LUMBAR SP 2V EXAM: XR PAIN CLINIC LUMBAR SP 2V CLINICAL HISTORY: DX: Lumbar Spondylosis TECHNIQUE: 2D and realtime digital imaging was performed. CONTRAST MATERIAL: Refer to procedure report. COMPARISON: No exams were available for comparison FINDINGS: Fluoroscopy was provided for Dr. Altamirano during the performance of a bilateral lumbar radiofrequency ab lation. Please refer to the procedure report for complete details. Ka,r=25.2 mGy IMPRESSION: RADIATION DOSE DELIVERED: 0.0 0.0 0
[2024-04-09] MEDS: Bupivacaine 0.5% Pres-Free 10 ML VIAL IJ (11:39)
[2024-04-09] MEDS: methylPREDNISolone ACETATE 40 MG/ML VIAL IJ (11:40)
[2024-04-09] MEDS: Lidocaine 2% Multi-Dose 20 ML VIAL IJ (11:40)
[2024-04-09] MEDS: Nerve Block Tray 1 EACH MC (11:40)
--- NOTE | 2024-04-09 15:57 | PDOC.PAIN_ITS ---
Date of service: 04/09/24 Time of Service: 10:30 Pain Managment Procedure Note Procedure Note Procedure Note: PROCEDURE NOTE BILATERAL LUMBAR RADIOFREQUENCY ABLATION Date of Service: April 09, 2024 Patient:Negar Farr? Provider:? Murali Altamirano DO, MPH Negar Lowe [facility] Bilateral Lumbar Radiofrequency Ablation with the [employer] Machine.? Pre Operative Diagnosis: Lumbosacral Spondylosis without Myelopathy ICD-10 M47.816 Post Operative Diagnosis: Same Pre procedure pain; VAS= 7/10 Comments: She has >1 year of >50% pain improvement with her last RFA at these levels on 03/29/22. She does have a L4-S1 fusion. PROCEDURE: Radiofrequency Ablation of medial branches - bilateral L1, L2 and L3. Negar?was interviewed and the medical record was reviewed.? There were no medical, pharmacologic, radiographic or other structural contraindications to attempting fluoroscopically guided BILATERAL Lumbar Radiofrequency Ablation.?Risks and expected side effects as well as potential benefit of the procedure were reviewed with Negar, and the patient's voiced concerns were addressed.? The printed consent form was signed.? Standard time-out procedure was performed. Negar was brought into the fluoroscopy suite and positioned into the prone position on the fluoroscopy table and allowed to adjust to a position of comfort. A grounding pad was placed on the left abdomen. The sterile field was prepared using chlorhexidine preparation of the skin and sterile draping. Local anesthesia superficial and deep was provided by local infiltration of 2% lidocaine. A 17g 100 mm radiofrequency introducer needle was placed to the planned anatomic targets guided with intermittent fluoroscopy with a perpendicular approach to terminally place at the junction of the superior articular process and the transverse process of the bilateral L1, L2 and L3. The stylets were removed and radiofrequency probes with a 4mm active tip were then inserted. Needle tip position of the probes was verified in the AP, oblique, and lateral views. At each site, the medial branch nerve was stimulated at 2 Hz to a maximum 1-2 volts determined to finalize safe needle and electrode placement. The patient was awake and responsive during this portion of the procedure. Each target was anesthetized with 1-2 mL of 2 % Lidocaine for anesthesia for lesioning and then each target was lesioned at 80 degrees Celsius for 2 minutes and 30 seconds. Next, I injected 1/4 cc of Depomedrol (40 mg/cc) followed by 1 cc of 0.5% Bupivacaine at each segmental sensory nerve. Tissue impedances were noted to be between 250 and 500 Ohms. There was no unusual discomfort expressed by Negar. The needles were withdrawn without difficulty and bandages placed over the needle placement sites, the patient was observed and was without hemodynamic, neurologic, or allergic reactions. Fluoroscopic images were digitally archived. POST PROCEDURE EVALUATION: IMPRESSION: 1. Summary of procedure. Medication given is documented in the MAR. 2. Follow up plan: Negar to contact [facility] as needed.?This procedure may be repeated if the patient achieves at least 50% improvement in pain/function for at least 6 months. 3. Estimated Blood Loss: <5 mls 4. Fluoroscopy time: Documented in the EMR. Follow up plans and appointments were discussed with the Negar. Post procedure instruction was given as documented in nursing documentation and having met discharge criteria, Negar was discharged from the [facility]. COMMENTS: No apparent complications. Post-procedure pain: VAS= 3/10. I personally completed the entire procedure. MURALI ALTAMIRANO DO, MPH ABPM&R - Subspecialty board certification in Pain Medicine [facility] [facility]
== END 2024-04-09 08:56 | disposition home or self-care (01) ==
LOC: PC 08:55
PROVIDERS: PCP Nurse Practitioner Family; Visit Provider Preventive Medicine Occupational Medicine
DX: M54.50 Low back pain, unspecified (principal); M47.816 Spondylosis without myelopathy or radiculopathy, lumbar region
CPT/HCPCS: 64635; 64636; 72100; J0665; J1010; J2003; J2250; J3010

== ENCOUNTER 2024-04-23 09:22 | Outpatient (CLI) | payer MEDICARE, SELFPAY ==
--- NOTE | 2024-04-23 06:00 | DI.RAD_ITS ---
Exam(s) XR PAIN CLINIC FLUORO JOINT IN EXAM: XR PAIN CLINIC FLUORO JOINT IN CLINICAL HISTORY: DX: Right hip and groin pain TECHNIQUE: 2D and realtime digital imaging was performed. CONTRAST MATERIAL: Refer to procedure report. COMPARISON: No exams were available for comparison FINDINGS: Fluoroscopy was provided for Dr. Altamirano during the performance of a right hip steroid injection. Plea se refer to the procedure report for complete details. Ka,r=15.1 mGy IMPRESSION: RADIATION DOSE DELIVERED: 0.0 0.0 0
[2024-04-23 09:36] VITALS: BP 163/86; PULSE 62; RESP 20; TEMP 36.3; O2SAT 96
[2024-04-23 09:57] VITALS: O2SAT 94
[2024-04-23 10:00] VITALS: O2SAT 97
[2024-04-23] MEDS: Lidocaine 2% Pres-Free 5 ML VIAL IJ (10:17)
[2024-04-23] MEDS: methylPREDNISolone ACETATE 40 MG/ML VIAL IJ (10:17)
[2024-04-23] MEDS: Nerve Block Tray 1 EACH MC (10:17)
[2024-04-23] MEDS: Omnipaque 240 MG/ML 50 ML BTL IJ (10:18)
--- NOTE | 2024-04-23 10:37 | PDOC.PAIN_ITS ---
Date of service: 04/23/24 Time of Service: 10:37 Pain Managment Procedure Note Procedure Note Procedure Note: PROCEDURE NOTE LEFT INTRA-ARTICULAR HIP JOINT INJECTION Date of Service: April 23, 2024 Patient:Negar Farr? Provider:? Raj Altamirano DO, MPH Negar Lowe has been [facility] to the [facility] for LEFT intra- articular hip joint injection. Pre-operative diagnosis: Hip Osteoarthritis ICD-10 M16.9 Post-operative diagnosis: Same Pre-Procedure Pain: VAS= 5/10 COMMENTS: I previously evaluated her in the clinic. Vashtiwas interviewed and the medical record was reviewed.? There were no medical, pharmacologic, radiographic or other structural contraindications to attempting fluoroscopically guided LEFT intra-articular hip joint injection.? Risks and expected side effects as well as potential benefit of the procedure were reviewed with Negar, and voiced concerns were addressed.? The printed consent form was signed.? Standard time-out procedure was performed. Negar was placed in the lateral recumbant position on the fluoroscopy table with pulse oximeter applied. The skin entry point for approaching superior aspect of the lateral LEFT hip joint was identified under the most advantageous fluoroscopic view and marked. Following thorough Chlorhexadine preparation of the skin and draping, 1% lidocaine infiltration of the skin entry point and subcutaneous tissues was accomplished. Next a 22 gauge 3.5 inch spinal needle was placed under fluoroscopic guidance into the LEFT hip joint. Intra-articular placement was confirmed by a clear arthrogram resulting from the injection of 1 ml Omnipaque 240. 3 ml of 1 %Lidocaine and 80mg Depo-Medrol was injected intra- articularily with an initial reproduction of a significant component of the usual pain. 1 ml of 1% Lidocaine was then flushed through the needle and the needle was then removed without difficulty. (49 ml of Omnipaque was wasted). There was no unusual discomfort expressed by Negar. The needle was withdrawn without difficulty. Negar was observed and was without hemodynamic, neurologic, or allergic reactions.? Fluoroscopic images were digitally archived. Gennys vital signs were stable throughout the procedure and were as recorded in the docflowsheet by the nursing staff. If given, dosages of intravenous drugs for anxiolysis and analgesia were documented in MAR. Follow up plans and appointments were discussed with Negar. Post procedure instruction was given as documented in nursing documentation and having met discharge criteria, Negar was [facility] from the [facility]. COMMENTS: No apparent complications. Post-procedure pain: VAS= 0/10. Negar to contact [facility] as needed. If at least 50% improvement in pain and/or function for at least 3 months is achieved, this procedure can be repeated. I personally completed the entire procedure. RAJ ALTAMIRANO DO, MPH ABPM&R - Subspecialty board certification in Pain Medicine [facility] [facility]
== END 2024-04-23 09:23 | disposition home or self-care (01) ==
LOC: PC 09:22
PROVIDERS: PCP Nurse Practitioner Family; Visit Provider Preventive Medicine Occupational Medicine
DX: M16.12 Unilateral primary osteoarthritis, left hip (principal)
CPT/HCPCS: 20610; 77002; J1010; Q9967

== ENCOUNTER → 2024-04-24 12:30 | Outpatient (BNVA) | payer MEDICARE, SELFPAY | PROVIDERS: PCP Nurse Practitioner Family; Referring Provider Nurse Practitioner Family; Visit Provider Psychiatry & Neurology Neurology | DX: G43.009 Migraine without aura, not intractable, without status migrainosus (principal); R20.0 Anesthesia of skin; R20.2 Paresthesia of skin; K11.7 Disturbances of salivary secretion; G89.29 Other chronic pain | CPT/HCPCS: 99215; G2212 ==

== ENCOUNTER 2024-05-14 13:42 | Outpatient (REF) | payer MEDICARE, SELFPAY ==
[2024-05-14 15:08] LABS: Hemoglobin A1C 6.1 % (<5.7)
[2024-05-14 15:37] LABS: Calculated LDL 47 mg/dL (<100); Cholesterol 129 mg/dL (<200); HDL Cholesterol 57 mg/dL (40-60); Triglyceride 127 mg/dL (<150)
[2024-05-16 16:50] LABS: ALT 31 U/L (14-59); AST 29 U/L (15-37); Alkaline Phosphatase 89 U/L (46-116); BUN 12 mg/dL (7-18); CREATININE 1.1 mg/dL (0.55-1.02); Chloride 103 mmol/L (98-107); Estimated GFR 51.75 (mL/min/1.73m2); Glucose 95 mg/dL (74-106); Potassium 5.3 mmol/L (3.5-5.1); Sodium 140 mmol/L (136-145); Total Protein 8.1 g/dL (6.4-8.2)
== END 2024-05-14 13:43 | disposition home or self-care (01) ==
LOC: NCHCN 13:42
PROVIDERS: PCP Nurse Practitioner Family; Visit Provider Nurse Practitioner Family
DX: E78.5 Hyperlipidemia, unspecified (principal); R73.03 Prediabetes
CPT/HCPCS: 80061; 82947; 84520; 82435; 82565; 83036; 84075; 84132; 84155; 84295; 84450; 84460

== ENCOUNTER 2024-06-04 02:47 | Outpatient (CLI) | payer MEDICARE, SELFPAY ==
--- NOTE | 2024-06-04 | DI.MAMMO_ITS ---
Exam(s) MAMMO SCREENING EXAM: MAMMO SCREENING CLINICAL HISTORY: Screening, Z12.31; family history of sister and mother with breast CA TECHNIQUE: Bilateral full field digital CC and MLO mammographic images were obtained with 3D tomosyn thesis and utilizing computer aided detection (CAD). COMPARISON: Available for comparison. FINDINGS: Masses/Architectural Distortion: None seen. Microcalcifications: No suspicious pleomorphic-type are seen. Skin Thickening/Nipple Retraction: None. IMPRESSION: 1. No significant interval change with no specific features of malignancy noted. 2. Unless there is more urgent need, screening mammography is recommended, as per [employer] guidelines. BI-RADS Category 1 - Negative Breast Density - Category B - Scattered areas of fibroglandular density Breast density category C or D implies that the patient has dense breast tissue. Dense breast tissue is very common and is not abnormal but dense breast tissue can make it harder to find cancer on a ma mmogram. Also, dense breast tissue may increase their breast cancer risk. This information about the result of the mammogram report was provided to the patient to raise their awareness. Use this report when you speak with the patient about their risks for breast cancer, which includes their family hist ory. At that time, you may recommend for more screening tests (Ultrasound or MRI) as they might be us eful based on their risk. A negative radiographic report should not delay biopsy if a dominant or clinically suspicious mass is present. Up to ten percent of cancers are not identified on mammography. A negative report may reinforce clinical impression. Adenosis and dense breasts may obscure an underlying neoplasm. False positive reports average 6 to 10%. Patient will receive a letter notifying them of these results.
== END 2024-06-04 03:07 ==
LOC: DI 02:47
PROVIDERS: PCP Nurse Practitioner Family; Visit Provider Nurse Practitioner Family
DX: Z12.31 Encounter for screening mammogram for malignant neoplasm of breast (principal); R92.323 Mammographic fibroglandular density, bilateral breasts
CPT/HCPCS: 77063; 77067

== ENCOUNTER → 2024-06-26 12:30 | Outpatient (BNVA) | payer MEDICARE, SELFPAY | PROVIDERS: PCP Nurse Practitioner Family; Referring Provider Nurse Practitioner Family; Visit Provider Psychiatry & Neurology Neurology | DX: G43.009 Migraine without aura, not intractable, without status migrainosus (principal); G89.29 Other chronic pain; R20.0 Anesthesia of skin; R20.2 Paresthesia of skin; K11.7 Disturbances of salivary secretion | CPT/HCPCS: 98012; 99213 ==

== ENCOUNTER → 2024-08-14 12:34 | Outpatient (BNVA) | payer MEDICARE, SELFPAY | PROVIDERS: PCP Nurse Practitioner Family; Referring Provider Nurse Practitioner Family; Visit Provider Physician Assistant Surgical | DX: R05.3 Chronic cough (principal); R06.09 Other forms of dyspnea | CPT/HCPCS: 99214 ==

== ENCOUNTER 2024-08-14 13:11 | Outpatient (REF) | payer MEDICARE, SELFPAY ==
[2024-08-14 19:36] LABS: Abs Immature Grans 0.02 10^3/uL (0.0-0.06); Absolute Basophil Count 0.04 10^3/uL (0.0-0.2); Absolute Eosinophil Count 0.16 10^3/uL (0.0-0.7); Absolute Lymphocyte Count 1.63 10^3/uL (1.2-3.4); Absolute Monocyte Count 0.54 10^3/uL (0.1-0.8); Absolute Neutrophil Count 2.38 10^3/uL (1.2-6.7); Basophils % 0.8 %; Eosinophils % 3.4 %; HCT 40.6 % (36.0-46.0); HGB 13.4 g/dL (11.2-15.7); Immature Grans % 0.4 %; Lymphocytes % 34.2 %; MCH 31.4 pg (27.0-33.0); MCV 95 fL (80-95); MPV 10.1 fL (8.0-11.0); Monocytes % 11.3 %; Neutrophils % 49.9 %; Platelet Count 246 10^3/uL (130-400); RBC 4.27 10^6/uL (3.93-5.22); RDW 12.8 % (11.7-14.6); RDW-SD 44.3 fL; WBC 4.77 10^3/uL (4.4-10.8)
[2024-08-14 20:07] LABS: Amylase 54 U/L (25-115); Lipase 45 U/L (<78)
[2024-08-14 21:04] LABS: Vitamin B12 1598 pg/mL (193-986)
[2024-08-14 21:05] LABS: Folate > 20.0 ng/mL (8.6-20.0)
== END 2024-08-14 13:12 | disposition home or self-care (01) ==
LOC: NCHCN 13:11
PROVIDERS: PCP Nurse Practitioner Family; Visit Provider Nurse Practitioner Family
DX: R73.03 Prediabetes (principal); G62.9 Polyneuropathy, unspecified; Z80.0 Family history of malignant neoplasm of digestive organs
CPT/HCPCS: 83690; 82150; 82607; 82746; 83036; 85025

== ENCOUNTER 2024-11-03 01:25 | Observation (INO) | payer MEDICARE, SELFPAY ==
[2024-11-03] VITALS (75 sets, daily range): BP systolic 98–180; BP diastolic 44–146; PULSE 80–143; RESP 13–35; TEMP 36.2–37.4; O2SAT 89–99
--- NOTE | 2024-11-03 01:15 | RT.EKG_ITS ---
APPROVED REPORT Exam: Resting ECG Reason for Exam: Short of Breath Patient Location: E HR:98 bpm ECG Measurements Heart Rate 98 AXIS NJ 172 P 23 QRSd 83 QRS -29 QT 326 T 23 QTc 417 Conclusion Sinus rhythm...normal P axis, V-rate 60- 99 Inferior infarct, old...Q >35mS, II III aVF Consider anterior infarct...Q >30mS in V2-V5 I have reviewed and interpreted ECG and agree with software generated interpretation.
--- NOTE | 2024-11-03 01:45 | DI.RAD_ITS ---
Exam(s) XR PORTABLE CHEST AP EXAM: XR PORTABLE CHEST AP CLINICAL HISTORY: sob, cough TECHNIQUE: 2D digital imaging was performed. COMPARISON: CR XR CHEST 2V PA LATERAL from 11/29/2022 FINDINGS: LUNGS: Mild streaky basilar opacities. Question of minimal blunting at the left costophrenic angle. HEART: Normal size. AORTA: Normal diameter. BONES: Unremarkable for age. Soft tissues: Unremarkable. IMPRESSION: Basilar atelectasis versus infiltrates. Question tiny left pleural effusion. DATA REPOSITORY: RADIATION DOSE DELIVERED:
[2024-11-03 02:05] LABS: BE (Venous) 3 mmol/L (-2-3); HCO3 (Venous) 27 mmol/L (23-28); O2 Sat (Venous) 64 %; TCO2 (Venous) 25 mmol/L (24-29); pCO2 (Venous) 41 mmHg (41-51); pH (Venous) 7.43 (7.31-7.41); pO2 (Venous) 32 mmHg
[2024-11-03] MEDS: Albuterol/Ipratropium 3 ML UPD VIAL 6 ML UPD (02:05)
[2024-11-03] MEDS: methylPREDNISolone SUCC 125 MG VIAL IVP (02:09)
[2024-11-03 02:12] LABS: Abs Immature Grans 0.02 10^3/uL (0.0-0.06); Absolute Basophil Count 0.01 10^3/uL (0.0-0.2); Absolute Eosinophil Count 0.01 10^3/uL (0.0-0.7); Absolute Lymphocyte Count 0.56 10^3/uL (1.2-3.4); Absolute Monocyte Count 0.51 10^3/uL (0.1-0.8); Basophils % 0.2 %; Eosinophils % 0.2 %; HCT 36.9 % (36.0-46.0); HGB 12.6 g/dL (11.2-15.7); Immature Grans % 0.4 %; Lymphocytes % 9.8 %; MCH 32.5 pg (27.0-33.0); MCHC 34.1 % (32.0-36.0); MCV 95 fL (80-95); Monocytes % 8.9 %; Neutrophils % 80.5 %; Platelet Count 177 10^3/uL (130-400); RBC 3.88 10^6/uL (3.93-5.22); RDW 12.8 % (11.7-14.6); RDW-SD 44.5 fL; WBC 5.71 10^3/uL (4.4-10.8)
[2024-11-03 02:19] LABS: INR 1.1 (0.9-1.1); PTT Activated 29.3 sec (20.6-30.2)
[2024-11-03 02:27] LABS: ALT 28 U/L (14-59); AST 28 U/L (15-37); Albumin 3.9 g/dL (3.4-5.0); Alkaline Phosphatase 71 U/L (46-116); Anion Gap 7.3 mmol/L (3-11); BUN 9 mg/dL (7-18); Bilirubin, Total 0.7 mg/dL (0.2-1.0); CO2 26.7 mmol/L (21.0-32.0); CREATININE 1.1 mg/dL (0.55-1.02); Calcium 8.7 mg/dL (8.5-10.1); Chloride 95 mmol/L (98-107); Estimated GFR 51.75 (mL/min/1.73m2); Glucose 136 mg/dL (74-106); Potassium 3.9 mmol/L (3.5-5.1); Sodium 129 mmol/L (136-145); Total Protein 7.6 g/dL (6.4-8.2); Troponin I 5 ng/L (<or=51)
--- NOTE | 2024-11-03 02:54 | W.ED.GENAD ---
Discharge Plan Disposition Patient Disposition: Admit to [facility] Condition: Improving Discharge Details Chief Complaint: GenMedical Clinical Impression: Community acquired pneumonia, Acute hypoxemic respiratory failure Primary Care Provider: Jossie Velez ED Provider: Da Yates Home Meds and New Rx's Prescriptions: No Action omeprazole 20 mg capsule,delayed release(DR/EC) 40 mg PO DAILY umeclidinium-vilanterol [Anoro Ellipta] 62.5-25 mcg/actuation blister with device 1 inh inhalation DAILY Qty: 60 12RF cholecalciferol (vitamin D3) 2,000 UNIT tablet 2,000 unit PO DAILY albuterol sulfate [ProAir HFA] 90 mcg/actuation Hfa Aerosol Inhaler 2 puff INHALATION Q4H PRN PRN gabapentin 300 mg capsule 300 mg PO TID 30 Days Qty: 90 11RF Rx Instructions: no abrupt cessation acetaminophen 500 mg capsule 500 mg PO Q6H PRN Arnuity Ellipta 200 mcg/actuation blister with device 1 inh inhalation DAILY simvastatin 40 mg tablet 40 mg PO DAILY cyanocobalamin (vitamin B-12) [Vitamin B-12] 1,000 MCG tablet extended release 500 mcg PO QAM calcium carbonate-vitamin D3 1 EACH tablet 2 ea PO QAM aspirin [Aspir-81] 81 MG tablet,delayed release (DR/EC) 81 mg PO QAM Centrum Silver 1 EACH tablet 1 ea PO DIRECTED vitamin E (dl, acetate) 400 UNIT capsule 400 units PO QAM furosemide 20 mg tablet 20 mg PO DAILY Patient Comments: TAKE 1 TABLET BY MOUTH EVERY DAY NEEDED FOR LEG SWELLING metoprolol succinate 25 mg tablet extended release 24 hr PO Patient Comments: TAKE ONE TABLET BY MOUTH EVERY DAY HPI General Date/Time Provider Initiated Documentation: 11/03/24 01:30. HPI Narrative: 79-year-old female with past medical history of high cholesterol, type 2 diabetes mellitus, asthma, hypertension, chronic kidney disease, GERD, who utilizes Incruse Ellipta and fluticasone for her inhalers, who presents today with shortness of breath. Patient states that she has had a mild cough for the last 4 days, she has had a single episode of diarrhea and a single episode of vomiting. She admits to mild productive yellow sputum. She denies fever or chills. She denies hemoptysis or blood in her stool or vomit. She denies any significant chest pain. She denies history of MO or stroke. Her symptoms are minimally improved by her inhalers. No other complaints at this time. No other modifying factors. Denies PE risk factors such as recent long car rides, immobilization, recent surgery, prior history of DVT or PE, family history of PE or DVT, morbid obesity, exogenous estrogen and smoking, hemoptysis, history of cancer. Related Data Home Medications ?Medication ?Instructions ?Recorded ?Confirmed aspirin 81 mg tablet,delayed 81 mg PO QAM 08/20/12 11/03/24 release (Aspir-) calcium 600 mg (as 2 ea PO QAM 08/20/12 11/03/24 carbonate)-vitamin D3 5 mcg (200 unit) tablet cyanocobalamin (vitamin B-12) 500 mcg PO QAM 08/20/12 11/03/24 1,000 mcg tablet,extended release (Vitamin B-12 ER) kwdwjejc-vaf-mcrlp acid 0.4 1 ea PO DIRECTED 08/20/12 11/03/24 mg-lycopene 300 mcg-lutein 250 mcg tablet (Centrum Silver) vitamin E (dl, acetate) 180 mg 400 units PO QAM 08/20/12 11/03/24 (400 unit) capsule cholecalciferol (vitamin D3) 50 2,000 unit PO DAILY 02/11/18 11/03/24 mcg (2,000 unit) tablet omeprazole 20 mg capsule,delayed 40 mg PO DAILY 02/19/18 11/03/24 release albuterol sulfate 90 mcg/actuation 2 puff inhalation Q4H PRN PRN 08/04/19 11/03/24 aerosol inhaler (ProAir HFA) gabapentin 300 mg capsule 300 mg PO TID 30 days #90 caps 08/16/20 11/03/24 furosemide 20 mg tablet 20 mg PO DAILY 11/08/20 11/03/24 acetaminophen 500 mg capsule 500 mg PO Q6H PRN 06/03/24 11/03/24 fluticasone furoate 200 1 inh inhalation DAILY 06/03/24 11/03/24 mcg/actuation blister powder for inhalation (Arnuity Ellipta) simvastatin 40 mg tablet 40 mg PO DAILY 06/26/24 11/03/24 umeclidinium 62.5 mcg-vilanterol 1 inh inhalation DAILY #60 ea 08/14/24 11/03/24 25 mcg/actuation powdr for inhalation (Anoro Ellipta) metoprolol succinate 25 mg mg PO 11/03/24 tablet,extended release 24 hr Previous Rx's ?Medication ?Instructions ?Recorded gabapentin 300 mg capsule 300 mg PO TID 30 days #90 caps 08/16/20 umeclidinium 62.5 mcg-vilanterol 1 inh inhalation DAILY #60 ea 08/14/24 25 mcg/actuation powdr for inhalation (Anoro Ellipta) Allergies Allergy/AdvReac Type Severity Reaction Status Date / Time tramadol Allergy Swelling/Ed Verified 11/03/24 01:37 domenic General Stated Complaint: GenMedical ROLAND: 3 Exam Narrative Exam Narrative: 1.Const: Well-nourished, Well-developed, appearing stated age 2.Eyes: PERRL, no conjunctival injection, and symmetrical lids. 3.ENT: Atraumatic external nose and ears. Dry MM. Neck: Symmetric, trachea midline, No thyromegaly. 4.CVS: +S1/S2, Peripheral pulses 2+ and equal in all extremities. Brisk capillary refill in all extremities. 5.RESP: Labored respiratory effort, diffuse wheezes throughout, no focal rales or rhonchi. 6.GI: Soft, Nontender/Nondistended, No hepatosplenomegaly. No guarding or rebound. 7.MSK: Normocephalic/Atraumatic, Extremities w/o deformity or ttp No cyanosis or clubbing, Normal movement of all extremities 8.Skin: Warm, Dry. No rashes or lesions. 9.Neuro: multimedia author II-XII grossly intact. Sensation grossly intact, no focal neurologic deficits. 10.Psych: (AAO) x3. Appropriate mood and affect Course Vital Signs Vital signs: Vital Signs Temperature 37.4 C 11/03/24 01:33 Pulse 101 H 11/03/24 01:33 Respiratory Rate 11/03/24 01:33 Blood Pressure 132/79 11/03/24 01:33 Pulse Oximetry 92 11/03/24 01:33 Temperature 37.4 C 11/03/24 01:33 Temperature Source Temporal Artery Scan 11/03/24 01:33 Pulse 108 H 11/03/24 02:20 Pulse 108 H 11/03/24 02:20 Respiratory Rate 20 11/03/24 02:20 Respiratory Effort Short of Breath 11/03/24 01:35 Blood Pressure 98/66 L 11/03/24 02:16 Blood Pressure Mean 73 11/03/24 02:16 Pulse Oximetry 99 11/03/24 02:20 Oxygen Delivery Method Room Air 11/03/24 01:33 Oxygen Flow Rate 0 11/03/24 01:33 Pain Level 8 11/03/24 01:33 Lab/Test Results Lab/Test Results: Laboratory Tests Range/Units 11/03/24 02:00 WBC (4.4-10.8) 10^3/uL 5.71 RBC (3.93-5.22) 10^6/uL 3.88 L Hgb (11.2-15.7) g/dL 12.6 Hct (36.0-46.0) % 36.9 MCV (80-95) fL 95 MCH (27.0-33.0) pg 32.5 MCHC (32.0-36.0) % 34.1 RDW (11.7-14.6) % 12.8 Plt Count (130-400) 10^3/uL 177 MPV (8.0-11.0) fL 9.0 Immature Gran % % 0.4 Neutrophils % % 80.5 Lymphocytes % % 9.8 Monocytes % % 8.9 Eosinophils % % 0.2 Basophils % % 0.2 Nucleated RBC % (0.0-0.3) % 0.0 Absolute Neutrophils (1.2-6.7) 10^3/uL 4.60 Absolute Lymphocytes (1.2-3.4) 10^3/uL 0.56 L Absolute Monocytes (0.1-0.8) 10^3/uL 0.51 Absolute Eosinophils (0.0-0.7) 10^3/uL 0.01 Absolute Basophils (0.0-0.2) 10^3/uL 0.01 PT (9.1-11.1) sec 11.0 INR (0.9-1.1) 1.1 APTT (20.6-30.2) sec 29.3 VBG pH (7.31-7.41) 7.43 H VBG pCO2 (41-51) mmHg 41 VBG pO2 mmHg 32 VBG HCO3 (23-28) mmol/L 27 VBG Total CO2 (24-29) mmol/L 25 VBG O2 Saturation % 64 VBG Base Excess (-2-3) mmol/L 3 Sodium (136-145) mmol/L 129 L Potassium (3.5-5.1) mmol/L 3.9 Chloride (98-107) mmol/L 95 L Carbon Dioxide (21.0-32.0) mmol/L 26.7 Anion Gap (3-11) mmol/L 7.3 BUN (7-18) mg/dL 9 Creatinine (0.55-1.02) mg/dL 1.1 H Est GFR (CKD-EPI 2020) (mL/min/1.73m2) 51.75 Glucose (74-106) mg/dL 136 H Calcium (8.5-10.1) mg/dL 8.7 Total Bilirubin (0.2-1.0) mg/dL 0.7 AST (15-37) U/L 28 ALT (14-59) U/L 28 Alkaline Phosphatase (46-116) U/L 71 Troponin I (<or=51) ng/L 5 Total Protein (6.4-8.2) g/dL 7.6 Albumin (3.4-5.0) g/dL 3.9 Medical Decision Making 79-year-old female with past medical history of high cholesterol, type 2 diabetes mellitus, asthma, hypertension, chronic kidney disease, GERD, who utilizes Incruse Ellipta and fluticasone for her inhalers, who presents today with shortness of breath. Patient states that she has had a mild cough for the last 4 days, she has had a single episode of diarrhea and a single episode of vomiting. She admits to mild productive yellow sputum. She denies fever or chills. She denies hemoptysis or blood in her stool or vomit. She denies any significant chest pain. She denies history of MO or stroke. Her symptoms are minimally improved by her inhalers. No other complaints at this time. No other modifying factors. Denies PE risk factors such as recent long car rides, immobilization, recent surgery, prior history of DVT or PE, family history of PE or DVT, morbid obesity, exogenous estrogen and smoking, hemoptysis, history of cancer. Exam demonstrates labored breathing without hypoxia, diffuse wheezes throughout without significant rales or rhonchi. No pitting edema in the lower extremities, no calf tenderness to suggest DVT or CHF. Concern for asthma/COPD exacerbation as well as potential pneumonia. No trauma to suggest pneumothorax. Will give breathing treatment and Solu-Medrol, get chest x-ray, monitor closely and reassess. 4:29 AM After breathing treatment patient felt slightly better, however she still had notable work of breathing and felt quite short of breath subjectively. Oxygen was initially hovering around 90%, however over the last hour or so she is transition to occasionally dropping down to 88%. We did ambulate the patient around the emergency department and her oxygen stayed stable however her work of breathing became notable, she had extreme tachypnea and pursed lips. Chest x-ray shows evidence of pneumonia, laboratory workup shows stable WBC, slightly low sodium at 129, stable troponin, negative COVID flu and RSV. With the patient's borderline oxygen levels, and the evidence of pneumonia on the chest x-ray in conjunction with her age and risk factors I do feel that she would benefit from admission. I discussed the case with the hospitalist Dr Moore, he agrees with the assessment and plan. I have extensively reviewed the treatment plan with the patient. I have addressed all patient concerns at this time. I have also discussed the plan with the admitting physician and they agree with the current assessment and plan and have agreed to assume responsibility for the patient. All parties demonstrate verbal understanding and agreement with our assessment and plan at this time. The documentation in this chart was dictated using True Style dictation software. Please excuse any dictation errors. FINDINGS: Lungs: Streaky bibasilar opacities. Pleural spaces: No large pleural effusion seen. Heart/Mediastinum: No cardiomegaly. Bones/joints: No acute abnormality. IMPRESSION: Streaky bibasilar opacities, likely atelectasis. Cannot exclude pneumonia. Follow-up if clinically warranted. Thank you for allowing us to participate in the care of your patient. Dictated and Authenticated by: Cailin Gonzalez MD 11/03/2024 3:12 AM Eastern Time ([place] & [place] Quality:SDOH Health Related Social Needs: No Data to Display Critical Care Time Critical Care Time Critical Care Time: Yes Total Critical Care Time: 45 Attestation: Upon my evaluation, this patient had a high probability of imminent or life-threatening deterioration, which required my direct attention, intervention, and personal management. I have personally provided 45 minutes of critical care time exclusive of time spent on separately billable procedures. Time includes review of laboratory data, radiology results, discussion with consultants, and monitoring for potential decompensation. Interventions were performed as documented. 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 (Acute) Traumatic tear of right rotator cuff (Acute ~10/2019) Bursitis of right shoulder (Acute) Arthritis of right acromioclavicular joint (Acute) Abdominal pain (Acute) Rupture of right proximal biceps tendon (Acute) Depression (Chronic) Axillary lymphadenopathy (Acute) Medical History Hip joint pain History of depression Family history of breast cancer in first degree relative Postnasal drip Mammogram abnormal Chest pain Loss of balance New daily persistent headache Pain in right shoulder Family history of breast cancer Pedal edema Glaucoma Exertional shortness of breath Hyponatremia Asthma Stage 3 chronic kidney disease Prediabetes HTN (hypertension) Right hip pain Bilateral knee pain Chest discomfort Pt. states she has had this worked up, but nothing was found. Sinusitis Osteopenia Hyperlipidemia Skin rash Diverticulosis of colon Lumbar radiculitis Surgical History History of colonoscopy (~10/2020) History of esophagogastroduodenoscopy (EGD) (~10/2020) Hx of arthroscopy of shoulder Replacement of total knee joint pt. denies this states she just had an arthroscopy Tonsillectomy and adenoidectomy Open Carpal Tunnel release L4-S1 Fusion (06/21/17) L4-5 Laminectomy (06/21/17) Cholecystectomy Family History Brother EtOH dependence Prostate cancer Kidney malignant neoplasm Mother Breast cancer DJD (degenerative joint disease) Pancreatic cancer Sister Diabetes Sister Hypertension Father Thyroid disorder Social History Smoking/Tobacco Use Status: Never Second Hand Exposure: Yes (former exposure) Smoking risk assessment performed?: Yes Alcohol Intake: former Drug use: Never Substance use type: does not use Household members: none Number of Children: 2 current occupation: retired Current gender identity: female What is your relationship status?: Panel score (0-1 are the most socially isolated patients): 0 Do you feel safe at home: Yes Additional Social history: lives alone
[2024-11-03 02:58] LABS: COVID-19 PCR Negative (Negative); Influenza A PCR Negative (Negative); Influenza B PCR Negative (Negative); RSV PCR Negative (Negative)
--- NOTE | 2024-11-03 03:12 | DI.VRAD_ITS ---
PROCEDURE INFORMATION: Exam: XR Chest Exam date and time: 11/03/2024 2:40 AM Age: 79 years old Clinical indication: Cough and shortness of breath; SOB, cough TECHNIQUE: Imaging protocol: Radiologic exam of the chest. Views: 1 view. COMPARISON: CR XR CHEST 2V PA LATERAL 11/29/2022 10:58 AM FINDINGS: Lungs: Streaky bibasilar opacities. Pleural spaces: No large pleural effusion seen. Heart/Mediastinum: No cardiomegaly. Bones/joints: No acute abnormality. IMPRESSION: Streaky bibasilar opacities, likely atelectasis. Cannot exclude pneumonia. Follow-up if clinically warranted. Dictated and Authenticated by: Cailin Gonzalez MD. Orderin Trudy Roberson MD
[2024-11-03 03:19] LABS: Source Nasopharynx
--- NOTE | 2024-11-03 03:38 | NUR.NOTE ---
road tested PT. PTs SPO2% maintained at 95%. PTs HR was 120 and PT was extremely SOB Nursing Note:
[2024-11-03] MEDS: cefTRIAXone 2 GM/50 ML BAG IVPB (03:45)
[2024-11-03] MEDS: DOXYCYCLINE 100 MG in Normal Saline 100 ML IVPB (04:26)
[2024-11-03 04:30] LABS: Troponin I 4 ng/L (<or=51)
--- NOTE | 2024-11-03 05:11 | HPE_ITS ---
Date of service: 11/03/24 Time of Service: 05:12 Assessment and Plan Assessment and plan (1) Acute hypoxemic respiratory failure: Status: Acute Assessment and plan: -hypoxia secondary to CAP -afebrile with normal WBCs -hypoxic with O2 sats into the 80s and still with O2 requirement -COVID, flu, RSV negative -VBG reassuring -CXR with basilar opacities vs atelectasis -continue rocephin/doxy that was started in the ED (2) Community acquired pneumonia: Status: Acute Assessment and plan: -as above (3) HTN (hypertension): Assessment and plan: -home regimen with dosing unclear on current list, will defer ordering usual regimen until can be clarified (4) Hyperlipidemia: Assessment and plan: -statin (5) Asthma: Assessment and plan: -need to clarify home inhaler regimen including what the pt has actually been using -continue duonebs prn on admit -had a dose of IV solu-medrol in the ED, determine need for ongoing steroids today (6) Hyponatremia: Assessment and plan: -acute on chronic, Na has been low in the past, more recently appears to have been normal -Na 129 today -repeat BMP tomorrow History of Present Illness Narrative: 79 yo female with history of asthma per her report this was diagnosed about 3-4 yrs ago. She has no smoking history, but significant second hand smoke exposure including wood stoves and living with smokers. She was not diagnosed with asthma as a child. She started to feel ill about a week ago, has gotten much worse in the past 2 days. She has been very tired, sleeping a lot including most of the day yesterday. Cough has been horrible including some coughing fits, not much coming up and she states, it wasn't yellow. Breathing OK as long as she does not move, RAJPUT with minimal exertion and was not even able to walk around the ED without severe dyspnea. Has inhalers at home for daily use that she does not use regularly, sometimes I forget. Has been using her prn albuterol although it is not clear how much and she does not have a nebulizer at home. Not on home O2 at baseline. Occasional, twitch of pain, in her chest, fleeting in duration. Did not check temp, but has felt warm and has been some cold chills. Appetite has not been good and she has not been eating much. Had 1 episode of vomiting this morning and diarrhea x 2, no abdominal pain. No specific episodes of coughing or choking when eating/drinking although says this happens to her a lot because, I swallowed lye as a baby. All other ROS negative. 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 (Acute) Traumatic tear of right rotator cuff (Acute ~10/2019) Bursitis of right shoulder (Acute) Arthritis of right acromioclavicular joint (Acute) Abdominal pain (Acute) Rupture of right proximal biceps tendon (Acute) Depression (Chronic) Axillary lymphadenopathy (Acute) Medical History Hip joint pain History of depression Family history of breast cancer in first degree relative Postnasal drip Mammogram abnormal Chest pain Loss of balance New daily persistent headache Pain in right shoulder Family history of breast cancer Pedal edema Glaucoma Exertional shortness of breath Hyponatremia Asthma Stage 3 chronic kidney disease Prediabetes HTN (hypertension) Right hip pain Bilateral knee pain Chest discomfort Pt. states she has had this worked up, but nothing was found. Sinusitis Osteopenia Hyperlipidemia Skin rash Diverticulosis of colon Lumbar radiculitis Surgical History History of colonoscopy (~10/2020) History of esophagogastroduodenoscopy (EGD) (~10/2020) Hx of arthroscopy of shoulder Replacement of total knee joint pt. denies this states she just had an arthroscopy Tonsillectomy and adenoidectomy Open Carpal Tunnel release L4-S1 Fusion (06/21/17) L4-5 Laminectomy (06/21/17) Cholecystectomy Family History Brother EtOH dependence Prostate cancer Kidney malignant neoplasm Mother Breast cancer DJD (degenerative joint disease) Pancreatic cancer Sister Diabetes Sister Hypertension Father Thyroid disorder Social History Smoking/Tobacco Use Status: Never Second Hand Exposure: Yes (former exposure) Smoking risk assessment performed?: Yes Alcohol Intake: former Drug use: Never Substance use type: does not use Household members: none Number of Children: 2 current occupation: retired Current gender identity: female What is your relationship status?: Panel score (0-1 are the most socially isolated patients): 0 Do you feel safe at home: Yes Additional Social history: lives alone Meds Allergies and Home Medications Allergies Allergy/AdvReac Type Severity Reaction Status Date / Time tramadol Allergy Swelling/Ed Verified 11/03/24 01:37 domenic Home Medications ?Medication ?Instructions ?Recorded ?Confirmed ?Type aspirin 81 mg tablet,delayed 81 mg PO QAM 08/20/12 11/03/24 History release (Aspir-) calcium 600 mg (as 2 ea PO QAM 08/20/12 11/03/24 History carbonate)-vitamin D3 5 mcg (200 unit) tablet cyanocobalamin (vitamin B-12) 500 mcg PO QAM 08/20/12 11/03/24 History 1,000 mcg tablet,extended release (Vitamin B-12 ER) wyfgqyva-aks-nuecz acid 0.4 1 ea PO DIRECTED 08/20/12 11/03/24 History mg-lycopene 300 mcg-lutein 250 mcg tablet (Centrum Silver) vitamin E (dl, acetate) 180 mg 400 units PO QAM 08/20/12 11/03/24 History (400 unit) capsule cholecalciferol (vitamin D3) 50 2,000 unit PO DAILY 02/11/18 11/03/24 History mcg (2,000 unit) tablet omeprazole 20 mg capsule,delayed 40 mg PO DAILY 02/19/18 11/03/24 History release albuterol sulfate 90 mcg/actuation 2 puff inhalation Q4H PRN PRN 08/04/19 11/03/24 History aerosol inhaler (ProAir HFA) gabapentin 300 mg capsule 300 mg PO TID 30 days #90 caps 08/16/20 11/03/24 Rx furosemide 20 mg tablet 20 mg PO DAILY 11/08/20 11/03/24 History acetaminophen 500 mg capsule 500 mg PO Q6H PRN 06/03/24 11/03/24 History fluticasone furoate 200 1 inh inhalation DAILY 06/03/24 11/03/24 History mcg/actuation blister powder for inhalation (Arnuity Ellipta) simvastatin 40 mg tablet 40 mg PO DAILY 06/26/24 11/03/24 History umeclidinium 62.5 mcg-vilanterol 1 inh inhalation DAILY #60 ea 08/14/24 11/03/24 Rx 25 mcg/actuation powdr for inhalation (Anoro Ellipta) metoprolol succinate 25 mg mg PO 11/03/24 History tablet,extended release 24 hr Exam Const General: cooperative and no acute distress Resp Auscultation: clear to auscultation bilaterally Cardio Rate: regular rate Rhythm: regular rhythm GI Palpation: soft Auscultation: normal bowel sounds Skin General skin exam: no rashes or lesions noted Extrem Other: no LE edema BL Psych Mental Status: mental status grossly normal Results Labs 11/03/24 02:00 11/03/24 02:00 Labs: Laboratory Results - last 24 hr 11/03/24 11/03/24 11/03/24 02:00 02:14 04:01 WBC 5.71 RBC 3.88 L Hgb 12.6 Hct 36.9 MCV 95 MCH 32.5 MCHC 34.1 RDW 12.8 Plt Count 177 MPV 9.0 Immature Gran % 0.4 Neutrophils % 80.5 Lymphocytes % 9.8 Monocytes % 8.9 Eosinophils % 0.2 Basophils % 0.2 Nucleated RBC % 0.0 Absolute Neutrophils 4.60 Absolute Lymphocytes 0.56 L Absolute Monocytes 0.51 Absolute Eosinophils 0.01 Absolute Basophils 0.01 PT 11.0 INR 1.1 APTT 29.3 VBG pH 7.43 H VBG pCO2 41 VBG pO2 32 VBG HCO3 27 VBG Total CO2 25 VBG O2 Saturation 64 VBG Base Excess 3 Sodium 129 L Potassium 3.9 Chloride 95 L Carbon Dioxide 26.7 Anion Gap 7.3 BUN 9 Creatinine 1.1 H Est GFR (CKD-EPI 2020) 51.75 Glucose 136 H Calcium 8.7 Total Bilirubin 0.7 AST 28 ALT 28 Alkaline Phosphatase 71 Troponin I 5 4 Total Protein 7.6 Albumin 3.9 COVID-19 Source Nasopharynx SARS-CoV-2 (PCR) Negative Influenza Type A (PCR) Negative Influenza Type B (PCR) Negative RSV (PCR) Negative Last Vital Signs Temp 37.4 C 11/03/24 01:33 Pulse 97 H 11/03/24 04:50 Resp 23 11/03/24 04:50 BP 107/49 L 11/03/24 04:46 Pulse Ox 94 11/03/24 04:50 Time Spent Time spent with Patient: 40-54 minutes Time was spent: preparing to see the patient(eg.review tests), obtaining and/or reviewing separately otained hiistory, ordering medications,tests, procedures, referring, communicating with other health child care center assistant director and indepentently interpreting results
[2024-11-03 07:31] LABS: Troponin I 6 ng/L (<or=51)
[2024-11-03] MEDS: Omeprazole 20 MG CAPCR 40 MG PO (07:34)
[2024-11-03] MEDS: Gabapentin 300 MG CAP PO ×2 (08:19→19:28)
[2024-11-03] MEDS: Enoxaparin 40 MG/0.4 ML SYR SC (08:19)
--- NOTE | 2024-11-03 09:11 | W.PC.ACHO ---
Registration Status: Primary Language: Preferred Language: ED Information & Data Chief Complaint GenMedical 11/03/24 02:59 Triage Note PT has had SOB and cough 11/03/24 01:33 with nausea and diarrhea that started 2 days ago Medical / Surgical History (Last Reviewed 06/26/24 @ 15:16 by Tia Manzano MD) Hip joint pain History of depression Asthma Family history of breast cancer in first degree relative Postnasal drip Mammogram abnormal Chest pain Loss of balance New daily persistent headache Pain in right shoulder Family history of breast cancer Pedal edema Glaucoma Exertional shortness of breath Hyponatremia Stage 3 chronic kidney disease Prediabetes HTN (hypertension) Right hip pain Bilateral knee pain Chest discomfort Sinusitis Osteopenia Hyperlipidemia Skin rash Diverticulosis of colon Lumbar radiculitis (Last Reviewed 06/26/24 @ 15:16 by Tia Manzano MD) History of colonoscopy (~10/2020) History of esophagogastroduodenoscopy (EGD) (~10/2020) Hx of arthroscopy of shoulder Replacement of total knee joint Tonsillectomy and adenoidectomy Open Carpal Tunnel release L4-S1 Fusion (06/21/17) L4-5 Laminectomy (06/21/17) Cholecystectomy Most Recent Vital Signs Temperature 37.4 C 11/03/24 01:33 Temperature Source Temporal Artery Scan 11/03/24 01:33 Pulse 95 H 11/03/24 08:50 Pulse 95 H 11/03/24 08:50 Respiratory Rate 21 11/03/24 08:50 Respiratory Effort Short of Breath 11/03/24 01:35 Blood Pressure 118/65 11/03/24 08:31 Blood Pressure Mean 82 11/03/24 08:31 Pulse Oximetry 96 11/03/24 08:50 Oxygen Delivery Method Room Air 11/03/24 01:33 Oxygen Flow Rate 0 11/03/24 01:33 Pain Level 8 11/03/24 01:33 Allergies tramadol Allergy (Verified 11/03/24 01:37) Swelling/Edema Active Medications Generic Name Dose Route Start Last Admin Trade Name Freq PRN Reason Stop Dose Admin Enoxaparin Sodium 40 mg 11/03/24 08:00 11/03/24 08:19 Enoxaparin 40 Mg/0.4 Ml Syr SC 40 mg Q24H TERRI Administration Gabapentin 300 mg 11/03/24 08:30 11/03/24 08:19 Gabapentin 300 Mg Cap PO 300 mg TID TERRI Administration Omeprazole 40 mg 11/03/24 07:30 11/03/24 07:34 Omeprazole 20 Mg Capcr PO 40 mg 0730 TERRI Administration IV IV Catheter Type [Right Saline Lock Antecubital] IV Catheter Gauge [Right 20 Antecubital] Diet Orders Category Date Time Status Regular/Normal [DIET] Nutrition 11/03/24 Breakfast Active Diagnostics 11/03/24 11/03/24 11/03/24 Range/Units 07:08 04:01 02:14 WBC (4.4-10.8) 10^3/uL RBC (3.93-5.22) 10^6/uL Hgb (11.2-15.7) g/dL Hct (36.0-46.0) % MCV (80-95) fL MCH (27.0-33.0) pg MCHC (32.0-36.0) % RDW (11.7-14.6) % Plt Count (130-400) 10^3/uL MPV (8.0-11.0) fL Immature Gran % % Neutrophils % % Lymphocytes % % Monocytes % % Eosinophils % % Basophils % % Nucleated RBC % (0.0-0.3) % Absolute Neutrophils (1.2-6.7) 10^3/uL Absolute Lymphocytes (1.2-3.4) 10^3/uL Absolute Monocytes (0.1-0.8) 10^3/uL Absolute Eosinophils (0.0-0.7) 10^3/uL Absolute Basophils (0.0-0.2) 10^3/uL PT (9.1-11.1) sec INR (0.9-1.1) APTT (20.6-30.2) sec VBG pH (7.31-7.41) VBG pCO2 (41-51) mmHg VBG pO2 mmHg VBG HCO3 (23-28) mmol/L VBG Total CO2 (24-29) mmol/L VBG O2 Saturation % VBG Base Excess (-2-3) mmol/L Sodium (136-145) mmol/L Potassium (3.5-5.1) mmol/L Chloride (98-107) mmol/L Carbon Dioxide (21.0-32.0) mmol/L Anion Gap (3-11) mmol/L BUN (7-18) mg/dL Creatinine (0.55-1.02) mg/dL Est GFR (CKD-EPI 2020) (mL/min/1.73m2) Glucose (74-106) mg/dL Calcium (8.5-10.1) mg/dL Total Bilirubin (0.2-1.0) mg/dL AST (15-37) U/L ALT (14-59) U/L Alkaline Phosphatase (46-116) U/L Troponin I 6 4 (<or=51) ng/L Total Protein (6.4-8.2) g/dL Albumin (3.4-5.0) g/dL COVID-19 Source Nasopharynx SARS-CoV-2 (PCR) Negative (Negative) Influenza Type A (PCR) Negative (Negative) Influenza Type B (PCR) Negative (Negative) RSV (PCR) Negative (Negative) 11/03/24 Range/Units 02:00 WBC 5.71 (4.4-10.8) 10^3/uL RBC 3.88 L (3.93-5.22) 10^6/uL Hgb 12.6 (11.2-15.7) g/dL Hct 36.9 (36.0-46.0) % MCV 95 (80-95) fL MCH 32.5 (27.0-33.0) pg MCHC 34.1 (32.0-36.0) % RDW 12.8 (11.7-14.6) % Plt Count 177 (130-400) 10^3/uL MPV 9.0 (8.0-11.0) fL Immature Gran % 0.4 % Neutrophils % 80.5 % Lymphocytes % 9.8 % Monocytes % 8.9 % Eosinophils % 0.2 % Basophils % 0.2 % Nucleated RBC % 0.0 (0.0-0.3) % Absolute Neutrophils 4.60 (1.2-6.7) 10^3/uL Absolute Lymphocytes 0.56 L (1.2-3.4) 10^3/uL Absolute Monocytes 0.51 (0.1-0.8) 10^3/uL Absolute Eosinophils 0.01 (0.0-0.7) 10^3/uL Absolute Basophils 0.01 (0.0-0.2) 10^3/uL PT 11.0 (9.1-11.1) sec INR 1.1 (0.9-1.1) APTT 29.3 (20.6-30.2) sec VBG pH 7.43 H (7.31-7.41) VBG pCO2 41 (41-51) mmHg VBG pO2 32 mmHg VBG HCO3 27 (23-28) mmol/L VBG Total CO2 25 (24-29) mmol/L VBG O2 Saturation 64 % VBG Base Excess 3 (-2-3) mmol/L Sodium 129 L (136-145) mmol/L Potassium 3.9 (3.5-5.1) mmol/L Chloride 95 L (98-107) mmol/L Carbon Dioxide 26.7 (21.0-32.0) mmol/L Anion Gap 7.3 (3-11) mmol/L BUN 9 (7-18) mg/dL Creatinine 1.1 H (0.55-1.02) mg/dL Est GFR (CKD-EPI 2020) 51.75 (mL/min/1.73m2) Glucose 136 H (74-106) mg/dL Calcium 8.7 (8.5-10.1) mg/dL Total Bilirubin 0.7 (0.2-1.0) mg/dL AST 28 (15-37) U/L ALT 28 (14-59) U/L Alkaline Phosphatase 71 (46-116) U/L Troponin I 5 (<or=51) ng/L Total Protein 7.6 (6.4-8.2) g/dL Albumin 3.9 (3.4-5.0) g/dL COVID-19 Source SARS-CoV-2 (PCR) (Negative) Influenza Type A (PCR) (Negative) Influenza Type B (PCR) (Negative) RSV (PCR) (Negative) Intake and Output - 24 Hour Total 11/03/24 01:25 thru 11/03/24 05:30 Intake Total 150 Balance 150 Weight 84.005 kg Intake: IV 150 Falls Risk Assessment History of Falls No History 11/03/24 01:35 Contributing Factors Impairments 11/03/24 01:35 Ambulatory Aids Independent 11/03/24 01:35 Tubes/Lines None 11/03/24 01:35 Gait Evaluation No gait disturbance 11/03/24 01:35 Cognition No cognitive impairment 11/03/24 01:35 Fall Total Score 3 11/03/24 01:35 Level of Risk Standard/Low Risk 11/03/24 01:35 Problems (Last Reviewed 06/26/24 @ 15:16 by Tia Manzano MD) Acute hypoxemic respiratory failure (Acute) Community acquired pneumonia (Acute) Notes 11/03/24 03:38 Nursing Notes by Esteban Sandra tested PT. PTs SPO2% maintained at 95%. PTs HR was 120 and PT was extremely SOB Nursing Note: Initialized on 11/03/24 03:38 - END OF NOTE v v v v v v v v v Sending and/or Receiving Nurses: Please use comment section below to note any information pertinent to the patient hand-off not included above. Information / Comments: Spoke with Radha, ED charge nurse. Pt arrived to ED with c/o SOB and cough with thick mucus production. Pt is a/o x 4 and able to make needs known. Pt did not ambulate in ED per nurse so unsure if she is a steady agit. Pt is on 2L of O2 for desat's in low 90's. Pt has been sinus tachycardia on monitor in ED. Pt has a # 20 IV to R AC which is flushing well with no c/o pain. Pt will be settled to floor. Report received from: Radha, ED RN
[2024-11-03] MEDS: Aspirin E.C. 81 MG TABEC PO (10:04)
[2024-11-03] MEDS: Calcium 600mg/Vit D 200U TAB 2 TAB PO (10:04)
[2024-11-03] MEDS: Normal Saline Flush 10 ML SYR IVP (10:04)
[2024-11-03] MEDS: Multivitamin TAB 1 TAB PO (10:04)
[2024-11-03] MEDS: Normal Saline 1,000 ML 75 ML IV (19:00)
[2024-11-03] MEDS: Doxycycline Hyclate 100 MG CAP PO (19:28)
[2024-11-03] MEDS: Benzonatate 100 MG CAP PO (19:28)
[2024-11-03] MEDS: Simvastatin 40 MG TAB PO (19:28)
[2024-11-03] MEDS: guaiFENesin 600 MG TABCR PO (19:28)
[2024-11-04] MEDS: Normal Saline 1,000 ML 75 ML IV (05:32)
[2024-11-04] MEDS: Benzonatate 100 MG CAP PO (05:33)
[2024-11-04] MEDS: cefTRIAXone 1 GM/50 ML BAG IV (05:33)
[2024-11-04 07:00] LABS: HCT 36.9 % (36.0-46.0); HGB 12.4 g/dL (11.2-15.7); MCH 32.5 pg (27.0-33.0); MCHC 33.6 % (32.0-36.0); MCV 97 fL (80-95); MPV 9.3 fL (8.0-11.0); Platelet Count 194 10^3/uL (130-400); RBC 3.82 10^6/uL (3.93-5.22); RDW-SD 46.5 fL; WBC 8.29 10^3/uL (4.4-10.8)
[2024-11-04 07:20] LABS: Anion Gap 6.8 mmol/L (3-11); BUN 14 mg/dL (7-18); CO2 29.2 mmol/L (21.0-32.0); Chloride 101 mmol/L (98-107); Estimated GFR 58.02 (mL/min/1.73m2); Glucose 115 mg/dL (74-106); Magnesium 1.8 mg/dL (1.8-2.4); Potassium 4.2 mmol/L (3.5-5.1); Sodium 137 mmol/L (136-145)
[2024-11-04] MEDS: Multivitamin TAB 1 TAB PO (07:45)
[2024-11-04] MEDS: Normal Saline Flush 10 ML SYR IVP (07:45)
[2024-11-04] MEDS: guaiFENesin 600 MG TABCR PO (07:45)
[2024-11-04] MEDS: Doxycycline Hyclate 100 MG CAP PO (07:45)
[2024-11-04] MEDS: Aspirin E.C. 81 MG TABEC PO (07:45)
[2024-11-04] MEDS: Omeprazole 20 MG CAPCR 40 MG PO (07:45)
[2024-11-04] MEDS: Gabapentin 300 MG CAP PO (07:45)
[2024-11-04] MEDS: Calcium 600mg/Vit D 200U TAB 2 TAB PO (07:45)
[2024-11-04 08:14] VITALS: BP 161/92; PULSE 79; RESP 18; TEMP 35.4; O2SAT 97
[2024-11-04 08:18] VITALS: O2SAT 98
--- NOTE | 2024-11-04 09:21 | PDOC.CMIN ---
Date of service: 11/04/24 Time of Service: 09:32 Care Management Initial Assmt Initial Assessment Reason for Hospitalization: pneumonia. Functional Status/Living Situation Patient Presentation: Negar presented to the ED early yesterday morning with shortness of breath. She was dx with pneumonia. Today Negar was sitting up in bed when CM met with her. She was very pleasant. She was still coughing, but did state that she was feeling better. Negar is independent in the community, and denied any community needs at this time. Negar is still driving, she works sometimes at odd jobs, but nothing regular. Town of Residence: [place] Resides with: Alone Significant Other/Family: Local (Son Santo is Negar's HCA. She has 11 grandchildren and 2 sons in the area.) Natural Supports: family Employment Status: Retired Instrumental Activities of Daily Living (ADLs): Independent Medications Medication Management: No Issues/Barriers identified Advance Directives Advance Directives: Do you have an Advance Directive: Y 04/22/24 08:30 AD On File at [facility]: Y 04/22/24 08:30 Date Asked 06/23/20 11/03/24 09:11 AD Date Reviewed 11/03/24 11/03/24 01:58 COLST On File at [facility] COLST Date Scanned Code Status Resuscitation Status Full Code Insurance Coverage/Financial Issues Insurance: Medicare Part A & B - [id number] FINANCIAL ASST - through end november. Negar will contact Lisa prasad to renew her financial assistance Care Team Visit Care Team Role Provider Type Jossie Velez Primary Care Provider NURSE PRACTITIONER Da Yates DO Emergency Provider [facility] STAFF PHYSICIAN Zenaida Moore MD Admit Provider [facility] STAFF PHYSICIAN Attending Provider Discharge Potential Discharge Needs: PCP F/U Appt Anticipated Barriers to Discharge: None Identified Patient/Family Education Needs: Review discharge instructions, discuss Ask Me Three Transportation: Private vehicle Plan: Negar will be discharged later today with no new services. She was given rx for antibiotics and cough medicine. She will f/u with her PCP and continue per her plan of care. Negar will transport home in a private vehicle. Social Determinants of Health Screening Social Determinants of health last assessed in clinic: 11/04/24 Will the Patient Participate in the Screening?: Yes Do you worry about having a steady place to live?: no Problems where you live: no known problems In the past 12 months, have you had to go without electric, gas, oil or water in your home?: no 1. Within the past 12 months, we worried whether our food would run out before we got money to buy more.: Never true 2. Within the past 12 months, the food we bought just didn't last and we didn't have money to get more.: Never true Has lack of transportation kept you from medical appointments or from doing things needed for daily living?: no Has anyone in your life made you feel unsafe or unsupported?: no How hard is it for you to pay for the very basics like food, housing, medical care, and heating? Would you say it is:: Not hard at all Do you want help finding or keeping work or a job?: I do not need or want help If for any reason you need help with day-to-day activities such as bathing, preparing meals, shopping, managing finances, etc., do you get the help you need?: I don?t need any help How often do you feel lonely or isolated from those around you?: Never Do you speak a language other than Citizen [place] at home?: Yes Does the patient want assistance with any of the above?: No Health Related Social Needs Health related social needs: education (Z55.6) 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 (Acute) Traumatic tear of right rotator cuff (Acute ~10/2019) Bursitis of right shoulder (Acute) Arthritis of right acromioclavicular joint (Acute) Abdominal pain (Acute) Rupture of right proximal biceps tendon (Acute) Depression (Chronic) Axillary lymphadenopathy (Acute) Medical History Hip joint pain History of depression Family history of breast cancer in first degree relative Postnasal drip Mammogram abnormal Chest pain Loss of balance New daily persistent headache Pain in right shoulder Family history of breast cancer Pedal edema Glaucoma Exertional shortness of breath Hyponatremia Asthma Stage 3 chronic kidney disease Prediabetes HTN (hypertension) Right hip pain Bilateral knee pain Chest discomfort Pt. states she has had this worked up, but nothing was found. Sinusitis Osteopenia Hyperlipidemia Skin rash Diverticulosis of colon Lumbar radiculitis Surgical History History of colonoscopy (~10/2020) History of esophagogastroduodenoscopy (EGD) (~10/2020) Hx of arthroscopy of shoulder Replacement of total knee joint pt. denies this states she just had an arthroscopy Tonsillectomy and adenoidectomy Open Carpal Tunnel release L4-S1 Fusion (06/21/17) L4-5 Laminectomy (06/21/17) Cholecystectomy Family History Brother EtOH dependence Prostate cancer Kidney malignant neoplasm Mother Breast cancer DJD (degenerative joint disease) Pancreatic cancer Sister Diabetes Sister Hypertension Father Thyroid disorder Social History Smoking/Tobacco Use Status: Never Second Hand Exposure: Yes (former exposure) Smoking risk assessment performed?: Yes Alcohol Intake: former Drug use: Never Substance use type: does not use Household members: none Housing: house Number of Children: 2 current occupation: retired Current gender identity: female What is your relationship status?: Panel score (0-1 are the most socially isolated patients): 0 Do you feel safe at home: Yes Additional Social history: lives alone
--- NOTE | 2024-11-04 11:16 | DSE_ITS ---
Date of service: 11/04/24 Time of Service: 11:16 DS: Diagnosis Discharge Diagnosis (1) Acute hypoxemic respiratory failure: Status: Acute (2) Community acquired pneumonia: Status: Acute (3) HTN (hypertension): (4) Hyperlipidemia: Discharge Plan Disposition Patient Disposition: Home Condition: Improving Discharge Details Reason For Visit: Pneumonia /CAP Admit Date/Time: 11/03/24 04:57 Admit Provider: Zenaida Moore Attending Provider: Zenaida Moore Primary Care Provider: Jossie Velez Hospital Course Hospital Course: 79-year-old female with a past medical history of high cholesterol, type 2 diabetes mellitus, asthma, hypertension, chronic kidney disease, and GERD, who utilizes Incruse Ellipta and fluticasone for her inhalers, who presented with shortness of breath. The patient stated that she had a mild cough for the last 4 days, with a single episode of diarrhea and vomiting. She admitted to mild productive yellow sputum. She denied fever, chills, hemoptysis, or blood in her stool or vomit. She also denied any significant chest pain and had no history of [place] or stroke. Her symptoms were minimally improved by her inhalers. No other complaints at this time. She denied PE risk factors such as recent long car rides, immobilization, recent surgery, prior history of DVT or PE, family history of PE or DVT, morbid obesity, exogenous estrogen use, smoking, hemoptysis, or history of cancer. After a breathing treatment, the patient showed slight improvement but continued to have noticeable respiratory distress, with tachypnea and pursed-lip breathing. Chest x-ray showed streaky bibasilar opacities, likely atelectasis, but pneumonia could not be excluded. Blood tests indicated stable WBC, low sodium, stable troponin, and negative COVID, flu, and RSV tests. Given her borderline oxygen levels, pneumonia findings, age, and risk factors, admission was deemed appropriate. The patient improved overnight. She had no oxygen requirement and was discharged to home with oral antibiotics, stable. Patient agreed with discharge plan. Social History: * Non-smoker with significant secondhand smoke exposure. * Retired, , and lives alone. * Denies alcohol or drug use. Medications: * Home Medications: * Aspirin 81 mg daily * Calcium 600 mg with Vitamin D3 daily * Cyanocobalamin 500 mcg daily * Vitamin E 400 IU daily * Cholecalciferol (Vitamin D3) 2000 IU daily * Omeprazole 40 mg daily * Albuterol inhaler prn * Gabapentin 300 mg TID * Furosemide 20 mg daily * Simvastatin 40 mg daily * Umeclidinium/vilanterol inhaler daily * Metoprolol succinate 25 mg daily Discharge Instructions: * Medications: Continue prescribed antibiotics and medications for asthma and other chronic conditions as directed. * Current Prescription Medications: * Benzonatate as prescribed. * Doxycycline for 8 days. * Guaifenesin as needed. * Levofloxacin for 5 days. * Follow-up: Schedule follow-up with primary care or [facility] within 1 week to review asthma management and adjust medications. * Oxygen: Continue O2 therapy at home as needed to maintain O2 saturation > 90%. * Diet/Activity: Increase fluid intake and nutrition as tolerated. Limit physical activity until symptoms improve. Home Meds and New Rx's Prescriptions: New benzonatate 100 mg Capsule 100 mg PO TID PRN (Reason: Cough) Qty: 20 0RF doxycycline hyclate 100 mg Capsule 100 mg PO BID Qty: 14 0RF levofloxacin 750 mg tablet 750 mg PO DAILY Qty: 5 0RF guaifenesin [Mucus Relief ER] 600 mg Tablet Extended Release 12hr 600 mg PO BID Qty: 0 0RF Continued omeprazole 20 mg capsule,delayed release(DR/EC) 40 mg PO DAILY umeclidinium-vilanterol [Anoro Ellipta] 62.5-25 mcg/actuation blister with device 1 inh inhalation DAILY Qty: 60 12RF cholecalciferol (vitamin D3) 2,000 UNIT tablet 2,000 unit PO DAILY albuterol sulfate [ProAir HFA] 90 mcg/actuation Hfa Aerosol Inhaler 2 puff INHALATION Q4H PRN PRN gabapentin 300 mg capsule 300 mg PO TID 30 Days Qty: 90 11RF Rx Instructions: no abrupt cessation acetaminophen 500 mg capsule 500 mg PO Q6H PRN Arnuity Ellipta 200 mcg/actuation blister with device 1 inh inhalation DAILY simvastatin 40 mg tablet 40 mg PO DAILY cyanocobalamin (vitamin B-12) [Vitamin B-12] 1,000 MCG tablet extended release 500 mcg PO QAM calcium carbonate-vitamin D3 1 EACH tablet 2 ea PO QAM aspirin [Aspir-81] 81 MG tablet,delayed release (DR/EC) 81 mg PO QAM Centrum Silver 1 EACH tablet 1 ea PO DIRECTED vitamin E (dl, acetate) 400 UNIT capsule 400 units PO QAM furosemide 20 mg tablet 20 mg PO DAILY Patient Comments: TAKE 1 TABLET BY MOUTH EVERY DAY NEEDED FOR LEG SWELLING metoprolol succinate 25 mg tablet extended release 24 hr 25 mg PO DAILY Patient Comments: TAKE ONE TABLET BY MOUTH EVERY DAY Discharge Instructions Instructions: Levofloxacin (Systemic), Benzonatate, Doxycycline, Guaifenesin, Community-Acquired Pneumonia, Adult (DC) Additional Instructions: Discharge Medications: * Doxycycline 100 mg oral twice a day ? continue to complete 7-day course * Levofloxacin 750 mg oral daily ? completed 5-day course * Benzonatate 100 mg PO three times a day as needed for cough * Guaifenesin 600 mg twice a day to aid expectoration Continue home meds Follow-Up Instructions: * Follow up with primary care provider in 1 week or sooner if symptoms worsen. * Return to the Emergency Department for worsening cough, fever, chest pain, shortness of breath, or coughing up blood. . Stand Alone Forms: Nursing Discharge Form Referrals: Jossie Velez [Primary Care Provider] - (1 week post hospitalization for CAP - doxy, levoquin, benzonatate. PCP office will give you a call to make a follow up appointment.) Michelle Pal PA [[employer] APPLICATIONS MANAGER] - (1-2 weeks) Activity:: Activity as Tolerated Equipment/Supplies:: No Equipment Needed Diet:: As Tolerated Discharge Orders Discharge Orders: Discharge Order (Routine); Ordered 11/04/24 Ordered By: Mikaela Villeda Discharge Data Discharge Date/Time-TO BE ENTERED AT DEPARTURE: 11/04/24 12:57 DS: Summary Time Spent with Patient providing and/or coordinating discharge services: Greater than 30 minutes Status at Discharge Functional status at discharge: independent ambulation Overall status at discharge: patient is progressing back to baseline Mental Status: mental status grossly normal Speech and Movement: speech and movement normal Mood: congruent mood Affect: normal affect Quality:SDOH Health Related Social Needs: Health related social needs education (Z55.6) Exam Narrative Exam Narrative: * General: Cooperative, no acute distress. * Respiratory: Clear lung sounds bilaterally. * Cardiovascular: Regular rate and rhythm. * Gastrointestinal: Abdomen soft, non-tender, normal bowel sounds. * Skin: No rashes or lesions. * Psychiatric: Mental status intact. Psych Mental Status: mental status grossly normal Speech and Movement: speech and movement normal Mood: congruent mood Affect: normal affect DS: Data Vitals/I&O Vitals and I&O: Vital Signs Temperature 35.4 C L 11/04/24 08:14 Temperature Source Temporal Artery Scan 11/04/24 08:14 Pulse 79 11/04/24 08:14 Pulse 95 H 11/03/24 08:50 Respiratory Rate 18 11/04/24 08:14 Respiratory Effort Short of Breath 11/03/24 10:43 Respiratory Depth Normal 11/03/24 10:43 Respiratory Pattern Normal 11/03/24 10:43 Blood Pressure 161/92 H 11/04/24 08:14 Blood Pressure Mean 115 11/04/24 08:14 Pulse Oximetry 98 11/04/24 08:18 Oxygen Delivery Method Room Air 11/04/24 08:18 Oxygen Flow Rate 0 11/04/24 08:18 Pain Level 0 11/03/24 11:56 Comment Notifying RN 11/04/24 08:14 Intake & Output 11/03/24 11/03/24 11/04/24 11:59 23:59 11:59 Intake Total 160 / 560 400 / 560 1140 / 1140 Output Total 1400 / 1400 Balance 160 / 560 400 / 560 -260 / -260 Weight 84.005 kg Intake: IV 160 / 160 840 / 840 Oral 400 / 400 300 / 300 Output: Urine 1400 / 1400 Other: Urine Color Yellow Yellow Urine Appearance Clear Clear Clear Comment independent void x 1 Data Completed and Pending Labs on day of discharge: Labs from last 24 hours 11/04/24 05:47: Magnesium 1.8 11/04/24 05:47: WBC 8.29, RBC 3.82 L, Hgb 12.4, Hct 36.9, MCV 97 H, MCH 32.5, MCHC 33.6, RDW 13.0, Plt Count 194, MPV 9.3, Sodium 137, Potassium 4.2, Chloride 101, Carbon Dioxide 29.2, Anion Gap 6.8, BUN 14, Creatinine 1.0, Est GFR (CKD- EPI 2020) 58.02, Glucose 115 H, Calcium 9.0, Magnesium Cancelled 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 (Acute) Traumatic tear of right rotator cuff (Acute ~10/2019) Bursitis of right shoulder (Acute) Arthritis of right acromioclavicular joint (Acute) Abdominal pain (Acute) Rupture of right proximal biceps tendon (Acute) Depression (Chronic) Axillary lymphadenopathy (Acute) Medical History Hip joint pain History of depression Family history of breast cancer in first degree relative Postnasal drip Mammogram abnormal Chest pain Loss of balance New daily persistent headache Pain in right shoulder Family history of breast cancer Pedal edema Glaucoma Exertional shortness of breath Hyponatremia Asthma Stage 3 chronic kidney disease Prediabetes HTN (hypertension) Right hip pain Bilateral knee pain Chest discomfort Pt. states she has had this worked up, but nothing was found. Sinusitis Osteopenia Hyperlipidemia Skin rash Diverticulosis of colon Lumbar radiculitis Surgical History History of colonoscopy (~10/2020) History of esophagogastroduodenoscopy (EGD) (~10/2020) Hx of arthroscopy of shoulder Replacement of total knee joint pt. denies this states she just had an arthroscopy Tonsillectomy and adenoidectomy Open Carpal Tunnel release L4-S1 Fusion (06/21/17) L4-5 Laminectomy (06/21/17) Cholecystectomy Family History Brother EtOH dependence Prostate cancer Kidney malignant neoplasm Mother Breast cancer DJD (degenerative joint disease) Pancreatic cancer Sister Diabetes Sister Hypertension Father Thyroid disorder Social History Smoking/Tobacco Use Status: Never Second Hand Exposure: Yes (former exposure) Smoking risk assessment performed?: Yes Alcohol Intake: former Drug use: Never Substance use type: does not use Household members: none Housing: house Number of Children: 2 current occupation: retired Current gender identity: female What is your relationship status?: Panel score (0-1 are the most socially isolated patients): 0 Do you feel safe at home: Yes Additional Social history: lives alone Time Spent with Patient Time Spent with Patient: 45-69 minutes Time was spent: preparing to see the patient(eg.review tests), ordering medications,tests, procedures, referring, communicating with other health long term care pharmacist, indepentently interpreting results, counseling the patient and care coordination
[2024-11-04] MEDS: Cyanocobalamin 500 MCG TAB PO (12:40)
[2024-11-04] MEDS: Metoprolol CR 25 MG TABCR PO (12:40)
[2024-11-04] MEDS: Furosemide 20 MG TAB PO (12:40)
[2024-11-04] MEDS: Cholecalciferol (Vitamin D3) 1,000 UNIT TAB 2000 UNITS PO (12:40)
[2024-11-04] MEDS: Acetaminophen 325 MG TAB 650 MG PO (13:08)
== END 2024-11-04 12:57 | disposition home or self-care (01) ==
LOC: ER 04:39 → MS 09:11
PROVIDERS: Admitting Provider Family Medicine; Emergency Provider Student in an Organized Health Care Education/Training Program; PCP Nurse Practitioner Family; Visit Provider Family Medicine
DX: J18.9 Pneumonia, unspecified organism; J96.01 Acute respiratory failure with hypoxia; E87.1 Hypo-osmolality and hyponatremia; N18.30 Chronic kidney disease, stage 3 unspecified; E11.22 Type 2 diabetes mellitus with diabetic chronic kidney disease; I12.9 Hypertensive chronic kidney disease with stage 1 through stage 4 chronic kidney disease, or unspecified chronic kidney disease; M47.817 Spondylosis without myelopathy or radiculopathy, lumbosacral region; K57.30 Diverticulosis of large intestine without perforation or abscess without bleeding; E11.40 Type 2 diabetes mellitus with diabetic neuropathy, unspecified; J45.909 Unspecified asthma, uncomplicated; F32.A Depression, unspecified; K21.9 Gastro-esophageal reflux disease without esophagitis; E78.00 Pure hypercholesterolemia, unspecified; I25.2 Old myocardial infarction; G43.009 Migraine without aura, not intractable, without status migrainosus; Z79.82 Long term (current) use of aspirin; Z79.899 Other long term (current) drug therapy
CPT/HCPCS: 00123; 36415; 80048; 80053; 82805; 85027; 87637; 93005; 94640; 96365; 96366; 96367; 96372; 96375; 99291; J1650; 71045; 83735; 84484; 85025; 85610; 85730; 93010; 94760; 99223; 99239; G0378; J0696; J2919; J7620

== ENCOUNTER → 2025-02-11 10:08 | Outpatient (BNVA) | payer MEDICARE, SELFPAY | PROVIDERS: PCP Nurse Practitioner Family; Referring Provider Nurse Practitioner Family; Visit Provider Physician Assistant Surgical | DX: J45.909 Unspecified asthma, uncomplicated (principal) | CPT/HCPCS: 99214 ==

== ENCOUNTER 2025-05-29 14:04 | Day surgery (SDC) | payer MEDICARE, MEDICAID, SELFPAY ==
[2025-05-29] MEDS: Tropicam./Phenyleph. (1/2.5%) 5 ML BTL OD ×3 (14:13→14:27)
--- NOTE | 2025-05-29 14:14 | W.ANESPRE ---
General Info Date of Service Date Performed: 05/29/25 Height: 5 ft 3.5 in Weight: 77.564 kg Body Mass Index (BMI): 29.8 Surgical Procedure: Operation Date: 05/29/25 16:55 Proposed Procedure Side Surgeon p Cataract Extraction with IOL Implant w/Glaucoma Stent Right Anoop Flores MD Meds Allergies and Home Medications Allergies Allergy/AdvReac Type Severity Reaction Status Date / Time tramadol Allergy Swelling/Ed Verified 05/29/25 14:18 domenic Home Medication ?Medication ?Instructions ?Recorded aspirin 81 mg tablet,delayed 81 mg PO QAM 08/20/12 release (Aspir-) calcium 600 mg (as 2 ea PO QAM 08/20/12 carbonate)-vitamin D3 5 mcg (200 unit) tablet cyanocobalamin (vitamin B-12) 500 mcg PO QAM 08/20/12 1,000 mcg tablet,extended release (Vitamin B-12 ER) vbadlrfd-row-orbpe acid 0.4 1 ea PO DIRECTED 08/20/12 mg-lycopene 300 mcg-lutein 250 mcg tablet (Centrum Silver) vitamin E (dl, acetate) 180 mg 400 units PO QAM 08/20/12 (400 unit) capsule cholecalciferol (vitamin D3) 50 2,000 unit PO DAILY 02/11/18 mcg (2,000 unit) tablet omeprazole 20 mg capsule,delayed 40 mg PO DAILY 02/19/18 release furosemide 20 mg tablet 20 mg PO DAILY 11/08/20 acetaminophen 500 mg capsule 500 mg PO Q6H PRN 06/03/24 fluticasone furoate 200 1 inh inhalation DAILY 06/03/24 mcg/actuation blister powder for inhalation (Arnuity Ellipta) umeclidinium 62.5 mcg-vilanterol 1 inh inhalation DAILY #60 ea 08/14/24 25 mcg/actuation powdr for inhalation (Anoro Ellipta) metoprolol succinate 25 mg 25 mg PO DAILY 11/03/24 tablet,extended release 24 hr losartan 25 mg tablet 50 mg PO DAILY 02/11/25 albuterol sulfate 90 mcg/actuation 2 inh inhalation .Q4H-6H PRN 05/26/25 aerosol inhaler (Ventolin HFA) ascorbic acid (vitamin C) 1,000 mg 1 g PO DAILY 05/26/25 tablet (Vitamin C) bimatoprost 0.01 % eye drops 1 drp ophthalmic (eye) QPM 05/26/25 (Lumfidelina) gabapentin 300 mg capsule 300 mg PO BID 05/26/25 gabapentin 300 mg capsule 600 mg PO QHS 05/26/25 simvastatin 20 mg tablet 20 mg PO QPM 05/26/25 Current Visit Medications: Current Medications Generic Name Dose Route Start Last Admin Trade Name Freq PRN Reason Stop Dose Admin Acetaminophen 1,000 mg 05/29/25 06:00 Acetaminophen 500 Mg Tab PO 06/28/25 05:59 Q4H PRN PRN Balanced Salt Solution 500 ml 05/29/25 06:00 Balanced Salt Soln.-Plus 500 Ml Bag OP 06/28/25 05:59 DIRECTED [facility] Miscellaneous Medication 0 ml 05/29/25 06:00 Prednisolone 1%, Moxifloxacin 0.5%, Bromfenac 0.09% 5.6ml Btl OD 06/28/25 05:59 DIRECTED [facility] Miscellaneous Medication 0 ml 05/29/25 06:00 Tropicam./Phenyleph. (1/2.5%) 5 Ml Btl OD 06/28/25 05:59 DIRECTED [facility] Tetracaine HCl 0 ml 05/29/25 06:00 Tetracaine 0.5% 4 Ml Btl OD 06/28/25 05:59 DIRECTED [facility] PFSH Active Problems Active Problems: Problem Status Onset Code Cortical age-related cataract, right eye Acute H25.011 Nuclear age-related cataract, right eye Acute H25.11 Primary open angle glaucoma (POAG) of right eye, mild stage Acute H40.1111 Acute hypoxemic respiratory failure Acute J96.01 Community acquired pneumonia Acute J18.9 Drooling Acute K11.7 Migraine headache without aura Acute G43.009 Chronic headache Acute R51.9, G89.29 Lumbosacral spondylosis without myelopathy Acute M47.817 Right groin pain Acute R10.31 Dyspnea Acute R06.00 Diverticulosis of large intestine Acute K57.30 Chronic cough Acute R05.3 Numbness and tingling Acute R20.0, R20.2 Fatigue Acute R53.83 Posterior rhinorrhea Acute J34.89 Neuropathy Acute G62.9 Headache Acute R51.9 Lumbar post-laminectomy syndrome Acute M96.1 Nguyễn's esophagus Acute ~10/2020 K22.70 Rupture of right proximal biceps tendon Acute S46.211A Abdominal pain Acute R10.9 Arthritis of right acromioclavicular joint Acute M19.011 Bursitis of right shoulder Acute M75.51 Traumatic tear of right rotator cuff Acute ~10/2019 S46.011A Depression Chronic F32.9 Axillary lymphadenopathy Acute R59.0 Adjacent segment disease with spinal stenosis Acute M48.00 Medical History Medical History (Updated 05/28/25 @ 19:22 by Anoop Flores MD) Bilateral cataracts Hip joint pain History of depression Family history of breast cancer in first degree relative Postnasal drip Mammogram abnormal Chest pain Pt. states it was a one time occurrence more than likely stress related Loss of balance New daily persistent headache Pain in right shoulder Family history of breast cancer Pedal edema Glaucoma Exertional shortness of breath Hyponatremia Stage 3 chronic kidney disease Prediabetes HTN (hypertension) Right hip pain Bilateral knee pain Chest discomfort Pt. states she has had this worked up, but nothing was found. Sinusitis Osteopenia Hyperlipidemia Skin rash Diverticulosis of colon Lumbar radiculitis Surgical History Surgical History History of colonoscopy (~10/2020) History of esophagogastroduodenoscopy (EGD) (~10/2020) Hx of arthroscopy of shoulder Replacement of total knee joint pt. denies this states she just had an arthroscopy Tonsillectomy and adenoidectomy Open Carpal Tunnel release L4-S1 Fusion (06/21/17) L4-5 Laminectomy (06/21/17) Cholecystectomy Tobacco Smoking/Tobacco Use Status: Never Passive smoking exposure: Yes Second hand exposure: Yes (former exposure) Alcohol Alcohol Intake: never Substance Use Substance use: Never Substance use type: does not use Vital Signs and Lab Results Vital Signs Comment Vital Signs Comment:: Temp Pulse Resp BP Pulse Ox 36.2 C L 74 18 162/78 H 97 05/29/25 14:19 05/29/25 14:19 05/29/25 14:19 05/29/25 14:19 05/29/25 14:19 Imaging and Studies Imaging and Studies Study information below may be from another EMR and interpreted by another provider. Please see original notes in EMR for more complete details. EKG Summary: 10/2024:Stress: Myocardial Lexiscan 03/03/2025 negative for ischemia normal LV systolic function. Stress Test Summary: 12/09:Stress ECG Conclusion 1. Resting electrocardiogram showed poor R wave progression 2. Patient exercised on the George protocol and completed a workload of 7.34 METS 3. Normal heart rate and blood pressure response to exercise. The patient achieved 98% of predicted heart rate for age 4. There was no electrocardiographic evidence of myocardial ischemia 5. There were no significant dysrhythmias Chambers Treadmill Score is 5.5 which is Low risk. Echocardiogram Summary: 1. Left ventricle: The cavity size was normal. Wall thickness was normal. Systolic function was normal. The estimated ejection fraction was 55-60%. Wall motion was normal; there were no regional wall motion abnormalities. Some parameters suggest diastolic dysfunction. 2. Aortic valve: There was mild regurgitation. 3. Mitral valve: Mildly calcified annulus. There was mild regurgitation. 4. Right ventricle: The cavity size was normal. Wall thickness was normal. Systolic function was normal. 1. Left ventricle: The cavity size was normal. Wall thickness was normal. Systolic function was normal. The estimated ejection fraction was 55-60%. Wall motion was normal; there were no regional wall motion abnormalities. Some parameters suggest diastolic dysfunction. 2. Aortic valve: There was mild regurgitation. 3. Mitral valve: Mildly calcified annulus. There was mild regurgitation. 4. Right ventricle: The cavity size was normal. Wall thickness was normal. Systolic function was normal. 12/01/16 Pulmonary Function Summary: 12/2023: Indications: Cough Interpretation Spirometry: normal Impression Normal spirometry w/ no reversibility after albuterol. Normal flow volume loop. Clinical Correlation therefore is recommended. 10/28/18INTERPRETATION OF STUDY Spirometry shows no evidence of obstructive airways disease. There is some, but not significant bronchodilator response. LUNG VOLUMES - Lung volumes shows no evidence of restriction. DIFFUSION CAPACITY- Normal. AIRWAY RESISTANCE - Normal. IMPRESSION Overall normal pulmonary function study. There is some improvement with bronchodilator administration, however, this may be related to a better patient effort and overall the amount of response is not significant. Clinical correlation therefore is recommended. If underlying diagnosis of asthma is suspected, proceeding with Methacholine challenge testing may prove to be useful. Anesthesia Assessment and Plan Anesthesia History Personal History: No History of Anesthesia Complications Family History: No Family History of Anesthesia Complications Exercise Tolerance Exercise Tolerance: Metabolic Equivalents>4 Pertinent Negatives Pertinent Negatives: No Symptoms of GERD Cardiac & Pulmonary Exam Cardiac Exam: Normal S1/S2 Heart Sounds Pulmonary Exam: Clear Bilateral Breath Sounds Implantable Cardiac Device Does patient have a Pacemaker or an ICD?: No Airway Exam Known Difficult Airway: No Mallampati Class: 1 Mouth Opening: Normal (> 3cm) Thyromental Distance: Greater than 3 cm Neck Range of Motion: Full ROM Neck Circumference: Normal Teeth Condition: Edentulous ASA Classification ASA Score: ASA 2 Emergency Case?: No NPO Status NPO Status: NPO Clears >2 hours, Solids >8 hours Anesthesia Plan Resuscitation Status: Full Code Anesthesia Technique: MAC Anesthesia Airway Planned: Natural Airway Monitors Used: Standard Monitors
[2025-05-29 14:16] VITALS: BMI 29.8
[2025-05-29 14:19] VITALS: BP 162/78; PULSE 74; RESP 18; TEMP 36.2; O2SAT 97
[2025-05-29] MEDS: Lidocaine 1% Pres-Free 5 ML VIAL (14:54)
[2025-05-29] MEDS: Moxifloxacin-PF 1 MG/ML VIAL (14:55)
[2025-05-29] MEDS: Duovisc Viscoelastic System EACH 1 EACH (14:55)
[2025-05-29] MEDS: Phenylephrine/Lidocaine (15/10) MG/ML 1 ML VIAL (14:55)
[2025-05-29] MEDS: Trypan Blue 0.06% 0.5 ML SYR (14:56)
[2025-05-29] MEDS: Povidone-Iodine Ophth 30 ML BTL (14:56)
[2025-05-29] MEDS: Balanced Salt Soln.-PLUS 500 ML BAG OP (14:56)
[2025-05-29] MEDS: Prednisolone 1%, Moxifloxacin 0.5%, Bromfenac 0.09% 5.6ML BTL OD (14:57)
[2025-05-29] MEDS: Tetracaine 0.5% 4 ML BTL OD (14:57)
[2025-05-29] MEDS: Hyaluronate Sodium 0.85 ML SYR (15:11)
[2025-05-29 15:25] VITALS: BP 151/67; PULSE 64; RESP 18; TEMP 36; O2SAT 98
--- NOTE | 2025-05-29 15:31 | W.PM.DSUDISC ---
Date of service: 05/29/25 Discharge Plan Disposition Patient Disposition: Home Discharge Details Attending Provider: Anoop Flores Primary Care Provider: Jossie Velez Home Meds and New Rx's Prescriptions: No Action omeprazole 20 mg capsule,delayed release(DR/EC) 40 mg PO DAILY umeclidinium-vilanterol [Anoro Ellipta] 62.5-25 mcg/actuation blister with device 1 inh inhalation DAILY Qty: 60 12RF losartan 25 mg tablet 50 mg PO DAILY Patient Comments: cholecalciferol (vitamin D3) 2,000 UNIT tablet 2,000 unit PO DAILY acetaminophen 500 mg capsule 500 mg PO Q6H PRN fluticasone furoate [Arnuity Ellipta] 200 mcg/actuation blister with device 1 inh inhalation DAILY cyanocobalamin (vitamin B-12) [Vitamin B-12] 1,000 MCG tablet extended release 500 mcg PO QAM calcium carbonate-vitamin D3 1 EACH tablet 2 ea PO QAM aspirin [Aspir-81] 81 MG tablet,delayed release (DR/EC) 81 mg PO QAM Centrum Silver 1 EACH tablet 1 ea PO DIRECTED vitamin E (dl, acetate) 400 UNIT capsule 400 units PO QAM gabapentin 300 mg capsule 600 mg PO QHS simvastatin 20 mg tablet 20 mg PO QPM Patient Comments: TAKE ONE TABLET BY MOUTH AT BEDTIME ascorbic acid (vitamin C) [Vitamin C] 1,000 mg tablet 1 g PO DAILY albuterol sulfate [Ventolin HFA] 90 mcg/actuation HFA aerosol inhaler 2 inh inhalation .Q4H-6H PRN Lumigan 0.01 % drops 1 drp ophthalmic (eye) QPM Patient Comments: INSTILL 1 DROP IN EACH EYE EVERY NIGHT AT BEDTIME gabapentin 300 mg capsule 300 mg PO BID Rx Instructions: no abrupt cessation furosemide 20 mg tablet 20 mg PO DAILY Patient Comments: TAKE 1 TABLET BY MOUTH EVERY DAY NEEDED FOR LEG SWELLING metoprolol succinate 25 mg tablet extended release 24 hr 25 mg PO DAILY Patient Comments: TAKE ONE TABLET BY MOUTH EVERY DAY Discharge Instructions Stand Alone Forms: [facility] Post-Op Cataract, Valdo Malone ([facility]), Portal Information Discharge Orders Discharge Orders: Discharge Order (Routine); Ordered 05/29/25 Ordered By: Anoop Flores DS: Diagnosis Discharge Diagnosis (1) Cortical age-related cataract, right eye: Status: Resolved (2) Nuclear age-related cataract, right eye: Status: Resolved (3) Primary open angle glaucoma (POAG) of right eye, mild stage: Status: Chronic
--- NOTE | 2025-05-29 15:35 | ROE_ITS ---
Operative Note Operative Note PRE-OP DIAGNOSIS: Nuclear/cortical cataract, right eye primary open-angle glaucoma, right eye, mild stage Same PROCEDURE: Cataract extraction using phacoemulsification with intraocular lens implant, right eye Canaloplasty, right eye Goniotomy, right eye SURGEON: Anoop Flores ANESTHESIA TYPE: Local By Surgeon and MAC Refer to Anesthesia Record ESTIMATED BLOOD LOSS: 0 PATHOLOGY: none sent COMPLICATIONS: None Patient was transported to: same day Patient's condition: stable Implants: Steven Clareon [id number] Indications: Visually significant cataract, right eye Open angle glaucoma, right eye, mild stage Procedure Description: PRE-OPERATIVE DIAGNOSIS: 1. Nuclear/cortical cataract, right eye 2. Primary open-angle glaucoma, mild stage, right eye POST OPERATIVE DIAGNOSIS: Same OPERATION: 1. Cataract extraction using phacoemulsification with posterior chamber lens implantation, right eye 2. Canaloplasty, 180 degrees, right eye 3. Goniotomy, 90 degrees, right eye IOL: IOL Online Journalist/Model: Steven Clareon [id number] IOL Power: + 18.5 diopters IOL Serial Number: [id number] Optic Diameter: 6.0mm Haptic/Overall Diameter: 13.0mm PHACO INFO: Steven [employer] Vision System with OZil and Active Fluidics Cumulative Dispersed Energy (CDE): 7.46 seconds SURGEON: Anoop Flores MD MBA ANESTHESIA: Monitored Anesthesia Care (MAC) with local sub-tenon's anesthetic infiltration SPECIMENS: None COMPLICATIONS: None INDICATIONS FOR PROCEDURE: The patient is a 80-year-old lady with history of diminished visual acuity in her right eye secondary to the development of nuclear/cortical cataract. She also has a history of mild stage primary open-angle glaucoma and is currently using Lumigan at bedtime. She has allergies/sensitivities to multiple other glaucoma medications. After cataract surgery was offered to the patient and she wished to proceed. In addition, the option of a minimally invasive glaucoma surgery at the time of cataract surgery was offered to the patient to reduce her dependency on topical medications. See office notes for detailed information. PROCEDURE: The correct surgical eye was identified and marked in the pupil was dilated the preoperative area using mydriatics and cycloplegics. She elected to proceed without oral sedation. the dilated pupil size was 7.0 mm. The patient was brought to the operating room where cardiopulmonary monitoring was instituted and surgical timeout was performed, confirming the correct operative eye and intraocular lens power. Topical anesthesia was administered and ophthalmic povidone iodine 5% was instilled into the conjunctival fornices. The periocular area was prepped with Betadine 10% solution and draped in the usual sterile fashion for intraocular surgery. An adhesive aperture eye drape was placed. A Tegaderm, cut in half, was used to sequester the upper and lower lid margins and lashes from the operative field. A lid speculum was placed between the lids of the operative eye and the operating microscope was swung into place. Magali scissors were then used to make a conjunctival buttonhole approximately 6 mm posterior to the limbus in the inferonasal quadrant. Blunt dissection was used to expose bare sclera, and a blunt Sub-Tenon's anesthesia cannula was introduced and passed posteriorly along the globe where non-preserved plain lidocaine was injected into posterior Sub-Tenon space. A 1mm double-bevel sideport knife was used to create a paracentesis port. VisionBlue was injected into the anterior chamber and allowed to sit for 30 seconds. Intraocular phenylephrine/lidocaine was injected into the anterior chamber. Viscoelastic was then used to fill the anterior chamber. A keratome knife was used to create a 2-plane clear corneal tunnel extending about 2.0 mm into clear cornea. A flap was raised on the anterior capsule and capsulorhexis forceps we re used to complete a continuous curvilinear capsulorhexis of 5.0 mm. Balanced salt solution was then used to perform cortical cleaving hydrodissection and nuclear hydrodelineation until the lens could be freely rotated within the capsular bag. The lens nucleus was then disassembled and removed within the capsular bag and iris plane using phacoemulsification. Residual cortical material was removed using the disposable silicone soft-tip Capsule-Guard I/A handpiece. The posterior capsule was carefully polished to remove as much residual lens epithelial cells as safely possible. The capsular bag was then inflated and the anterior chamber deepened with cohesive viscoelastic. The lens implant described above was inserted into the capsular bag using the Steven AutonoMe injector. A Kuglen hook was used to dial the IOL into position. Additional cohesive viscoelastic was then used to slightly over fill the anterior chamber and widen the chamber angle. The patient's head and microscope were then tilted into the appropriate position for viewing of the anterior chamber angle structures. Viscoelastic was placed on the cornea followed by a surgical gonioprism. The OMNI device was introduced into the anterior chamber and the tip was used to dexter the trabecular meshwork at the 3 o'clock position.. The microcatheter was deployed into Schlemm's canal in a counterclockwise fashion for 180 degrees, then retracted in a controlled fashion while extruding viscoelastic. The device was used to complete 6 contiguous clock hours of viscodilation of Schlemm's canal. The device was redeployed into Schlemm's canal in a counterclockwise fashion superior nasally and then externalized into the anterior chamber to perform a total of 90 degrees of contiguous gonitomy. The patient's head and microscope were then returned to the normal coaxial position. Residual viscoelastic was then removed using the I/A handpiece and the IOL was rotated to achieve the best possible centration. The anterior chamber was reformed using BSS and the incisions were stromally hydrated. The lens implant was noted to center nicely within the capsular bag. At the conclusion of the procedure, 0.5 mL of moxifloxacin 1 mg/mL were injected into the capsular bag and anterior chamber. The incisions were checked with a Weck spear and found to be secure. Ophthalmic povidone iodine 5% was then applied to the eye followed by 2 drops of combination topical antibiotic/steroid/NSAID. A clear plastic eye shield was placed on the eye. The patient was then brought to the recovery room in stable condition. Date of Procedure: 05/29/25
--- NOTE | 2025-06-02 16:30 | W.ANESPOSTOP ---
Postoperative Evaluation Date, Time and Location Date Performed: 05/29/25 Time Performed: 15:30 Patient Location: Day Surgery Unit Vital Signs Most Recent Imported Vital Signs: Most Recent Vital Signs Temp Pulse Resp BP Pulse Ox 36.0 C L 64 18 151/67 H 98 05/29/25 15:25 05/29/25 15:25 05/29/25 15:25 05/29/25 15:25 05/29/25 15:25 Pain Score Most Recent Pain Score: Most Recent Pain Score Pain Level 5 05/29/25 15:25 Assessment Mental Status: Awake (Alert & Oriented to Patient Baseline) Airway and Respiratory Function: Patent airway with normal (patient baseline) respiratory exam Cardiovascular Function: Hemodynamically Stable Hydration Status: Adequately Hydrated Nausea & Vomiting: No Nausea or Vomiting Pain: Pt. Denies Any Pain Peripheral Nerve Block: Patient did not receive a nerve block
== END 2025-05-29 15:51 | disposition home or self-care (01) ==
LOC: SUR 14:05
PROVIDERS: PCP Nurse Practitioner Family; Visit Provider Ophthalmology
PROC: (CPT 66174; principal; 2025-05-29 16:45)
DX: H25.011 Cortical age-related cataract, right eye (principal); H25.11 Age-related nuclear cataract, right eye; H40.1111 Primary open-angle glaucoma, right eye, mild stage
CPT/HCPCS: 66174; 66984; 00123; V2632; J2003; J7325